=== PATIENT | male | born 1940 | race Caucasian/White ===

== ENCOUNTER 2018-06-01 19:40 | Observation (INO) | payer MEDICARE ==
[2018-06-01] MEDS ORDERED: Sodium Chloride 0.9% 1000 ML 1,000 ML ONE (20:14)
[2018-06-01] MEDS ORDERED: Sodium Chloride 0.9% 1000 ML 1,000 ML IV SCH (20:15)
[2018-06-01 20:27] LABS: BASOPHIL % 0.2 % (0.0-0.4); Basophil (Absolute #) 0.02 (0-0.4); Eosinophil % 1.7 % (0.00-5.0); Eosinophil (Absolute #) 0.18 (0-0.5); Granulocytes % 79.6 % (36.0-66.0); Hemoglobin 14.2 gm/dl (12.5-18.0); Lymphocyte (Absolute #) 1.17 (1.0-4.6); Mean Corpuscular Hemoglobin 30.3 pg (26-32); Mean Corpuscular Hgb Concent. 32.3 g/dl (32-36); Mean Platelet Volume 11.3 fl (6-9.5); Monocytes % 7.5 % (0.0-12.0); Platelet Count 148 K/mm3 (150-450); Red Blood Count 4.68 M/mm3 (4.1-5.6); Red Cell Distribution Width 13.9 % (11.5-14.0); White Blood Count 10.7 K/mm3 (4.0-10.5)
--- NOTE | 2018-06-01 20:35 | ERPHSYRPT ---
- History of Present Illness Time Seen by Provider: 06/01/18 20:26 Source: patient Exam Limitations: no limitations Patient Subjective Stated Complaint: reports that pt left home around 184 this evening to attend a meeting she states around 192 she noted their dog was barking and looked out into the driveway to find the pt sitting out in their car. reports that pt was "talking out of his head" pt reports he has no recollection of driving home or attendting the meeting. pt reports no pain. reports pt has complained of fatigue for the last couple weeks. Triage Nursing Assessment: pt is aox3, pt is able to answer questions, pupils perrl, afebrile, pt skin is cool and clammy, pt t-shirt is saturated upon arrival, pt radial pulses strong and equal, cap refill < 3 seconds, pacemaker/ defib noted to the left chest. Physician History: 78-year-old white male brought by the medics with complaint of decreased level of consciousness this afternoon patient apparently went to a meeting at 184 later on the patient was noted to be sitting out in the car talking confused he cannot remember going to the meeting. He arrives he is alert oriented 3 answering questions he was noted have a blood sugar of 36 and given glucose by the medics he denies any chest pain shortness of breath. The patient's states the patient has been weak for the past 2-3 weeks. Past medical history includes bariatric surgery, arrhythmia, bilateral total hip arthroplasty., Also osteoarthritis and depression Past surgical history includes cardiac catheter, pacer, bilateral total hip replacement Timing/Duration: today Severity: moderate Modifying Factors: Improves With: other (patient improved after receieving gluciose from medics.) Allergies/Adverse Reactions: fluoxetine HCl [From [employer]] Allergy (Verified 06/01/18 20:02) Home Medications: Venlafaxine HCl ER 75 mg [Effexor XR 75 MG] 75 mg PO DAILY 05/25/13 [ History] Apixaban [Eliquis] 5 mg PO BID 06/01/18 [History] Carvedilol 3.125 mg [Coreg 3.125 MG] 3.125 mg PO DAILY 06/01/18 [History] Cyanocobalamin 500 Mcg [Vitamin B-12 500 MCG] 500 mcg PO DAILY 06/01/18 [ History] Ferrous Sulfate [Iron] 325 mg PO DAILY 06/01/18 [History] Sacubitril/Valsartan [Entresto 49 mg-51 mg Tablet] 1 tablet PO BID 06/01/18 [ History] Hx Tetanus, Diphtheria Vaccination/Date Given: No Hx Influenza Vaccination/Date Given: Yes Hx Pneumococcal Vaccination/Date Given: No Immunizations Up to Date: Yes - Review of Systems Constitutional: Weakness, No Fever, No Chills Eyes: No Symptoms Ears, Nose, & Throat: No Symptoms Respiratory: No Cough, No Dyspnea Cardiac: No Chest Pain, No Edema, No Syncope Abdominal/Gastrointestinal: No Abdominal Pain, No Nausea, No Vomiting, No Diarrhea Genitourinary Symptoms: No Dysuria Musculoskeletal: No Back Pain, No Neck Pain Skin: No Rash Neurological: Other (Patient noted to be confused while sitting in his car this evening noted to have low blood sugar. Incomplete improved after iv glucose.), No Dizziness, No Focal Weakness, No Sensory Changes Psychological: No Symptoms Endocrine: No Symptoms All Other Systems: Reviewed and Negative - Past Medical History Pertinent Past Medical History: Yes Neurological History: No Pertinent History ENT History: No Pertinent History Cardiac History: Arrhythmia Respiratory History: No Pertinent History Endocrine Medical History: No Pertinent History Musculoskeletal History: Osteoarthritis GI Medical History: No Pertinent History History: No Pertinent History Psycho-Social History: Depression Male Reproductive Disorders: No Pertinent History Other Medical History: Bariatric surgery, B ROSALIE (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) - Past Surgical History Past Surgical History: Yes Neuro Surgical History: No Pertinent History Cardiac: Cardiac Catheterization, Pacemaker Respiratory: No Pertinent History Gastrointestinal: Other Genitourinary: No Pertinent History Musculoskeletal: Orthopedic Surgery Male Surgical History: No Pertinent History Other Surgical History: kelly hip replacement, bariatic surgery - Social History Smoking Status: Never smoker Exposure to second hand smoke: No Drug Use: none Patient Lives Alone: No - Nursing Vital Signs Nursing Vital Signs: Initial Vital Signs Temperature 95.9 F 06/01/18 19:43 Pulse Rate 85 06/01/18 19:43 Respiratory Rate 20 06/01/18 19:43 Blood Pressure 111/69 06/01/18 19:43 O2 Sat by Pulse Oximetry 96 06/01/18 19:43 Pain Scale Pain Intensity 0 - Physical Exam General Appearance: no apparent distress, alert Eye Exam: PERRL/EOMI, eyes nml inspection Ears, Nose, Throat Exam: normal ENT inspection, TMs normal, pharynx normal, moist mucous membranes Neck Exam: normal inspection, non-tender, supple, full range of motion Respiratory Exam: normal breath sounds, lungs clear, No respiratory distress Cardiovascular Exam: regular rate/rhythm, normal heart sounds, normal peripheral pulses, capillary refill <2 sec Gastrointestinal/Abdomen Exam: soft, normal bowel sounds, No tenderness, No mass Back Exam: normal inspection, normal range of motion, No CVA tenderness, No vertebral tenderness Extremity Exam: normal inspection, normal range of motion, pelvis stable Neurologic Exam: alert, oriented x 3, cooperative, 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, normal mood/affect, nml cerebellar function, nml station & gait, sensation nml, No motor deficits Skin Exam: normal color, warm, dry, No rash Lymphatic Exam: No adenopathy SpO2 Interpretation: normal (96%) SpO2: 96 - Course Nursing assessment & vital signs reviewed: Yes - CT Exams Head CT Interpretation: Discussed w/radiologist (head CT: Nonacute senile brain compared to November 16, remote-appearing right external capsule lacunar infarct) Ordered Tests: Active Orders 24 hr Category Date Time Status Accucheck STAT Care 06/01/18 22:56 Active Rosalee Harris DAILY Care 06/01/18 22:14 Active EKG-ER Only STAT Care 06/01/18 20:13 Active CHEST 1 VIEW (PORTABLE) Stat Exams 06/01/18 20:30 Taken HEAD WITHOUT CONTRAST [CT] Stat Exams 06/01/18 20:30 Taken BLOOD CULTURE Stat Lab 06/01/18 22:08 Ordered CBC W DIFF Stat Lab 06/01/18 20:24 Completed CMP Stat Lab 06/01/18 20:24 Completed ETHYL ALCOHOL Stat Lab 06/01/18 20:37 Completed Glucose Stat Lab 06/01/18 23:20 Completed Glucose,Critical Care Urgent Lab 06/01/18 21:23 Completed Lactic Acid Stat Lab 06/01/18 22:22 Completed TROPONIN Q3H Lab 06/01/18 20:25 Completed TROPONIN Q3H Lab 06/01/18 23:30 Ordered TROPONIN Q3H Lab 06/02/18 02:30 Ordered TROPONIN Q3H Lab 06/02/18 05:30 Ordered TROPONIN Q3H Lab 06/02/18 08:30 Ordered TSH [TSH, 3RD Generation] Stat Lab 06/01/18 23:50 Ordered UA W/RFX UR CULTURE Stat Lab 06/01/18 20:43 Completed Medication Summary Generic Name Dose Route Start Last Admin Trade Name Pasquale PRN Reason Stop Dose Admin Sodium Chloride 1,000 mls @ 100 mls/hr 06/01/18 20:15 06/01/18 20:16 Sodium Chloride 0.9% 1000 Ml IV 07/01/18 20:14 100 mls/hr .Q10H AKHIL Administration Lab/Rad Data: Laboratory Result Diagrams 06/01/18 20:24 06/01/18 20:24 Laboratory Results 06/01/18 06/01/18 06/01/18 Range/Units 23:20 22:22 21:23 WBC (4.0-10.5) K/mm3 RBC (4.1-5.6) M/mm3 Hgb (12.5-18.0) gm/dl Hct (42-50) % MCV (78-100) fl MCH (26-32) pg MCHC (32-36) g/dl RDW (11.5-14.0) % Plt Count (150-450) K/mm3 MPV (6-9.5) fl Gran % (36.0-66.0) % Eos # (Auto) (0-0.5) Absolute Lymphs (auto) (1.0-4.6) Absolute Monos (auto) (0.0-1.3) Lymphocytes % (24.0-44.0) % Monocytes % (0.0-12.0) % Eosinophils % (0.00-5.0) % Basophils % (0.0-0.4) % Absolute Granulocytes (1.4-6.9) Basophils # (0-0.4) Sodium (137-145) mmol/L Potassium (3.5-5.1) mmol/L Chloride (98-107) mmol/L Carbon Dioxide (22-30) mmol/L Anion Gap (5-15) MEQ/L BUN (9-20) mg/dL Creatinine (0.66-1.25) mg/dL Estimated GFR ML/MIN Glucose 109 H 97 (74-106) mg/dL Lactic Acid 1.6 (0.4-2.0) Calcium (8.4-10.2) mg/dL Total Bilirubin (0.2-1.3) mg/dL AST (17-59) U/L ALT (0-50) U/L Alkaline Phosphatase (38-126) U/L Troponin I (0.000-0.034) ng/mL Serum Total Protein (6.3-8.2) g/dL Albumin (3.5-5.0) g/dL Urine Color (YELLOW) Urine Appearance (CLEAR) Urine pH (5-6) Ur Specific [place] (1.005-1.025) Urine Protein (Negative) Urine Ketones (NEGATIVE) Urine Blood (0-5) Gilberto/ul Urine Nitrite (NEGATIVE) Urine Bilirubin (NEGATIVE) Urine Urobilinogen (0-1) mg/dL Ur Leukocyte Esterase (NEGATIVE) Urine WBC (Auto) (0-5) /HPF Urine RBC (Auto) (0-2) /HPF U Epithel Cells (Auto) (FEW) /HPF Urine Bacteria (Auto) (NEGATIVE) /HPF Urine Mucus (Auto) (NEGATIVE) /HPF Urine Culture Reflexed (NO) Urine Glucose (NEGATIVE) mg/dL Ethyl Alcohol (0-10) mg/dL 06/01/18 06/01/18 06/01/18 Range/Units 20:43 20:37 20:25 WBC (4.0-10.5) K/mm3 RBC (4.1-5.6) M/mm3 Hgb (12.5-18.0) gm/dl Hct (42-50) % MCV (78-100) fl MCH (26-32) pg MCHC (32-36) g/dl RDW (11.5-14.0) % Plt Count (150-450) K/mm3 MPV (6-9.5) fl Gran % (36.0-66.0) % Eos # (Auto) (0-0.5) Absolute Lymphs (auto) (1.0-4.6) Absolute Monos (auto) (0.0-1.3) Lymphocytes % (24.0-44.0) % Monocytes % (0.0-12.0) % Eosinophils % (0.00-5.0) % Basophils % (0.0-0.4) % Absolute Granulocytes (1.4-6.9) Basophils # (0-0.4) Sodium (137-145) mmol/L Potassium (3.5-5.1) mmol/L Chloride (98-107) mmol/L Carbon Dioxide (22-30) mmol/L Anion Gap (5-15) MEQ/L BUN (9-20) mg/dL Creatinine (0.66-1.25) mg/dL Estimated GFR ML/MIN Glucose (74-106) mg/dL Lactic Acid (0.4-2.0) Calcium (8.4-10.2) mg/dL Total Bilirubin (0.2-1.3) mg/dL AST (17-59) U/L ALT (0-50) U/L Alkaline Phosphatase (38-126) U/L Troponin I < 0.012 (0.000-0.034) ng/mL Serum Total Protein (6.3-8.2) g/dL Albumin (3.5-5.0) g/dL Urine Color YELLOW (YELLOW) Urine Appearance CLEAR (CLEAR) Urine pH 5.0 (5-6) Ur Specific [place] 1.012 (1.005-1.025) Urine Protein NEGATIVE (Negative) Urine Ketones NEGATIVE (NEGATIVE) Urine Blood NEGATIVE (0-5) Gilberto/ul Urine Nitrite NEGATIVE (NEGATIVE) Urine Bilirubin NEGATIVE (NEGATIVE) Urine Urobilinogen NEGATIVE (0-1) mg/dL Ur Leukocyte Esterase NEGATIVE (NEGATIVE) Urine WBC (Auto) NONE (0-5) /HPF Urine RBC (Auto) 0-2 (0-2) /HPF U Epithel Cells (Auto) NONE (FEW) /HPF Urine Bacteria (Auto) NONE SEEN (NEGATIVE) /HPF Urine Mucus (Auto) SLIGHT (NEGATIVE) /HPF Urine Culture Reflexed NO (NO) Urine Glucose NEGATIVE (NEGATIVE) mg/dL Ethyl Alcohol < 10 (0-10) mg/dL 06/01/18 06/01/18 Range/Units 20:24 20:24 WBC 10.7 H (4.0-10.5) K/mm3 RBC 4.68 (4.1-5.6) M/mm3 Hgb 14.2 (12.5-18.0) gm/dl Hct 44.0 (42-50) % MCV 94.0 (78-100) fl MCH 30.3 (26-32) pg MCHC 32.3 (32-36) g/dl RDW 13.9 (11.5-14.0) % Plt Count 148 L (150-450) K/mm3 MPV 11.3 H (6-9.5) fl Gran % 79.6 H (36.0-66.0) % Eos # (Auto) 0.18 (0-0.5) Absolute Lymphs (auto) 1.17 (1.0-4.6) Absolute Monos (auto) 0.80 (0.0-1.3) Lymphocytes % 11.0 L (24.0-44.0) % Monocytes % 7.5 (0.0-12.0) % Eosinophils % 1.7 (0.00-5.0) % Basophils % 0.2 (0.0-0.4) % Absolute Granulocytes 8.50 H (1.4-6.9) Basophils # 0.02 (0-0.4) Sodium 140 (137-145) mmol/L Potassium 3.9 (3.5-5.1) mmol/L Chloride 105 (98-107) mmol/L Carbon Dioxide 26 (22-30) mmol/L Anion Gap 13.0 (5-15) MEQ/L BUN 20 (9-20) mg/dL Creatinine 0.98 (0.66-1.25) mg/dL Estimated GFR > 60.0 ML/MIN Glucose 51 L (74-106) mg/dL Lactic Acid (0.4-2.0) Calcium 8.9 (8.4-10.2) mg/dL Total Bilirubin 0.30 (0.2-1.3) mg/dL AST 19 (17-59) U/L ALT 13 (0-50) U/L Alkaline Phosphatase 114 (38-126) U/L Troponin I (0.000-0.034) ng/mL Serum Total Protein 7.3 (6.3-8.2) g/dL Albumin 4.3 (3.5-5.0) g/dL Urine Color (YELLOW) Urine Appearance (CLEAR) Urine pH (5-6) Ur Specific [place] (1.005-1.025) Urine Protein (Negative) Urine Ketones (NEGATIVE) Urine Blood (0-5) Gilberto/ul Urine Nitrite (NEGATIVE) Urine Bilirubin (NEGATIVE) Urine Urobilinogen (0-1) mg/dL Ur Leukocyte Esterase (NEGATIVE) Urine WBC (Auto) (0-5) /HPF Urine RBC (Auto) (0-2) /HPF U Epithel Cells (Auto) (FEW) /HPF Urine Bacteria (Auto) (NEGATIVE) /HPF Urine Mucus (Auto) (NEGATIVE) /HPF Urine Culture Reflexed (NO) Urine Glucose (NEGATIVE) mg/dL Ethyl Alcohol (0-10) mg/dL - Progress Progress: improved Progress Note: 06/01/18 21:32 78-year-old white male arrives with complaint of confusion apparently went to a meeting could not remember going there found sitting outside in his car. Patient given glucose after medics noted to have an Accu-Chek of 36. Patient now with a glucose of around 50 on his chemistry repeat stat glucose was ordered on this patient. Patient with head CT with nonacute senile brain compared to November 16, 2010 with new remote-appearing right external capsule lacunar infarct. 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 Patient does have a paced rhythm on his EKG [address] or T wave changes blood alcohol level is less than 10 chemistry essentially normal with the exception of a glucose of 51 troponin is normal Will repeat stat glucose provide glucose if necessary. Patient has not provided a urine. Anticipate placement patient on telemetry with neuro checks and monitoring sugars carefully. 06/01/18 23:09 Patient appears to be stable. Chest x-ray some atelectasis in the left lung base EKG remarkable for a paced rhythm lactate 1.6 urinalysis essentially normal CBC white blood cell 10.7 hemoglobin 14.2 hematocrit 44.0 patient's troponin less than 0.012 Chemistry glucose 51 this was repeated with a stat glucose and found to be 98 sodium 140 potassium 3.9 chloride 105 bicarbonate 26 BUN 20 creatinine 0.98 anion gap is [address] nonacute senile brain compared to November 16, 2010 with new remote- appearing right external capsule lacunar infarct. Urinalysis is normal Patient was given a bear hugger to increase his temperature. I have discussed the patient's case with Dr. Yun will go ahead and order a TSH free T4. Will plan on placing the patient on ICU with every 4 hours neuro checks will have every 2 hour IV glucose. Will continue telemetry and troponins. We'll consider D5 half normal saline to run at 60 mL per hour. - Departure Time of Disposition: 23:51 Departure Disposition: Observation Clinical Impression: Mental status change resolved, Hypoglycemia Hypothermia Qualifiers: Encounter type: initial encounter Qualified Code(s): T68.XXXA - Hypothermia, initial encounter Condition: Fair Critical Care Time: No Referrals: MOUNA YUN [Primary Care Provider] -
[2018-06-01 20:41] LABS: ALBUMIN 4.3 g/dL (3.5-5.0); ALKALINE PHOSPHATASE 114 U/L (38-126); BLOOD UREA NITROGEN 20 mg/dL (9-20); CHLORIDE 105 mmol/L (98-107); Calcium 8.9 mg/dL (8.4-10.2); Carbon Dioxide 26 mmol/L (22-30); Creatinine 1 0.98 mg/dL (0.66-1.25); Glucose 51 mg/dL (74-106); Potassium 3.9 mmol/L (3.5-5.1); SGOT/AST 19 U/L (17-59); SGPT/ALT 13 U/L (0-50); SODIUM 140 mmol/L (137-145); Total Protein 7.3 g/dL (6.3-8.2)
[2018-06-01 22:08] LABS: Appearance CLEAR (CLEAR); Bilirubin NEGATIVE (NEGATIVE); Blood NEGATIVE Ery/ul (0-5); Glucose NEGATIVE (NEGATIVE); Ketones NEGATIVE (NEGATIVE); Leukocyte Esterase NEGATIVE (NEGATIVE); Mucus SLIGHT /HPF (NEGATIVE); Nitrite NEGATIVE (NEGATIVE); Protein,Urine Dip NEGATIVE (Negative); RBC 0-2 /HPF (0-2); Specific Gravity 1.012 (1.005-1.025); Urobilinogen NEGATIVE mg/dL (0-1)
[2018-06-01 22:09] LABS: Bacteria NONE SEEN /HPF (NEGATIVE)
[2018-06-02] MEDS: Dextrose 5% -0.45 NaCl 1000 ML 1,000 ML IV SCH ×2 (01:04→17:42)
[2018-06-02 05:32] LABS: BASOPHIL % 0.3 % (0.0-0.4); Basophil (Absolute #) 0.02 (0-0.4); Eosinophil % 1.6 % (0.00-5.0); Granulocyte Absolute (ANC) 4.31 (1.4-6.9); Granulocytes % 68.1 % (36.0-66.0); Hemoglobin 13.1 gm/dl (12.5-18.0); Lymphocyte (Absolute #) 1.35 (1.0-4.6); Lymphocytes % 21.3 % (24.0-44.0); Mean Cell Volume 93.8 fl (78-100); Mean Platelet Volume 11.1 fl (6-9.5); Monocyte (Absolute #) 0.55 (0.0-1.3); Monocytes % 8.7 % (0.0-12.0); Platelet Count 136 K/mm3 (150-450); Red Blood Count 4.37 M/mm3 (4.1-5.6); Red Cell Distribution Width 13.9 % (11.5-14.0); White Blood Count 6.3 K/mm3 (4.0-10.5)
[2018-06-02 05:51] LABS: ALBUMIN 3.5 g/dL (3.5-5.0); ALKALINE PHOSPHATASE 97 U/L (38-126); ANION GAP 11.2 MEQ/L (5-15); BLOOD UREA NITROGEN 18 mg/dL (9-20); CHLORIDE 104 mmol/L (98-107); Calcium 8.7 mg/dL (8.4-10.2); Carbon Dioxide 27 mmol/L (22-30); Creatinine 1 0.84 mg/dL (0.66-1.25); Glucose 115 mg/dL (74-106); Potassium 4.5 mmol/L (3.5-5.1); SGOT/AST 16 U/L (17-59); SGPT/ALT 11 U/L (0-50); SODIUM 137 mmol/L (137-145); Total Protein 5.9 g/dL (6.3-8.2)
--- NOTE | 2018-06-02 08:37 | XRAY ---
Indication: Weakness. Mental status change. Multiple contiguous axial images obtained through the head without contrast. Comparison: November 16, 2010. Again age-appropriate global atrophy and mild periventricular degenerative micro-ischemia bilaterally. New right external capsule remote-appearing lacunar infarct. No acute intracranial hemorrhage, abnormal extra-axial fluid collection, or mass effect. Fourth ventricle is midline without hydrocephalus. Bony calvarium intact. Visualized paranasal sinuses and mastoid air cells are clear. Impression: Nonacute senile brain with remote-appearing right external capsule lacunar infarct. CT DI 65.91
--- NOTE | 2018-06-02 08:39 | XRAY ---
Indication: Weakness. Mental status change. Comparison: November 16, 2010. Portable chest demonstrates new minimal bibasilar infiltrates versus atelectasis. Upper lungs clear. Heart is not enlarged with new left-sided AICD. Stable focal eventration of the right hemidiaphragm. Bony thorax intact again with mild osteopenia and degenerative changes. Impression: Bibasilar infiltrates/atelectasis. Correlate clinically.
--- NOTE | 2018-06-02 10:35 | XRAY ---
Indication: Hypoglycemia. Possible tumor secreting. Multiple contiguous axial images obtained through the abdomen and pelvis without contrast as ordered. Comparison: None Lung bases demonstrates mild bibasilar fibrosis/scarring. No infiltrate or effusion. Heart is not enlarged with cardiac pacer leads. Moderate-sized hiatal hernia with partial intrathoracic stomach. Bilateral hip arthroplasty with prostheses producing extensive beam artifact limiting these levels. There has been previous gastric bypass surgery. Noncontrasted stomach and bowel loops appear nonobstructed. Mild diffuse scattered colonic fecal debris greatest in the ascending and transverse colon. Scattered descending diverticulosis without diverticulitis. Urinary bladder is markedly distended either neurogenic bladder versus outlet obstruction. No free fluid/air. Remaining liver, gallbladder, pancreas, spleen, adrenal glands, kidneys, and ureters appear unremarkable for noncontrast exam. Minimal scattered aortoiliac calcifications without AAA. Osseous structures demonstrates osteopenia and mild/moderate degenerative changes throughout the spine. No ventral or inguinal hernias. Impression: 1. Images of the pelvis limited due to beam artifact from bilateral hip arthroplasty. 2. Markedly distended urinary bladder. Rule out neurogenic bladder versus outlet obstruction. 3. Mild fecal stasis and descending colonic diverticulosis. 4. Moderate sized hiatal hernia. CT DI 23.27
[2018-06-02] MEDS: Effexor XR 75 MG PO SCH (11:24)
[2018-06-02] MEDS: Coreg 3.125 MG PO SCH (11:26)
[2018-06-02] MEDS: FEOSOL 325 MG PO SCH (11:26)
[2018-06-02] MEDS: ENTRESTO 49 MG-51 MG TABLET PO SCH ×2 (11:26→21:17)
[2018-06-02] MEDS: Vitamin B-12 500 MCG PO SCH (11:26)
[2018-06-02] MEDS: ELIQUIS 2.5 MG TABLET PO SCH ×2 (11:28→21:16)
--- NOTE | 2018-06-02 13:45 | HP ---
HISTORY OF PRESENT ILLNESS: This is a 78 year-old patient of mine who presented to the emergency department by ambulance. He and his are in the room. He states he now does remember going to the meeting and passing papers out to people and then driving home but once he was in his driveway he does not seem to remember what happened. His had reported to the emergency room doctor that they only live a few blocks from where he was driving home from and she noticed the dog barking and that he was out in the driveway. She states she went out to him and he did not know who she was or where he was. The patient reports that he did not take his afternoon medications but was planning on taking them when he got home. No one at home has any diabetes medicine. He does not have any diabetes medicine. He has not noticed anything different about any pills in his bottles. He reports he usually snacks throughout the day and did eat breakfast and then had a snack at 1000 hours, a cheeseburger at 1300 hours and ate at the [facility] where he had two sides around 1600 hours. His meeting was around 1800 hours. They report from the past two to three weeks he has felt tired. He had been taking naps. He reports that he is working on two to three projects and feels like that is a lot for him right now. He has history of bariatric surgery and this is why he just kind of snacks during the day because he feels like he fills up quickly. The emergency room doctor's note said when EMS found him that his blood sugar was 36 and they gave him glucose. It was 51 when he arrived in the emergency room. REVIEW OF SYSTEMS: No fever. No cough. No rhinorrhea. He reports a little bit of diarrhea two nights ago when he ate some dairy and a little bit of abdominal pain right before the diarrhea but no abdominal pain now. He reports that same night he had some spitting up but does not vomit anymore after the gastric bypass surgery. No rashes. No headache. No dysuria. No weight loss. PAST MEDICAL HISTORY: Depression well controlled on his current medication. Congestive heart failure with history of ejection fraction of 28% on echo December 2015. Dilated cardiomyopathy. He has a pacemaker. History of atrial fibrillation. He sees both Dr. Manuel Hess and Dr. Lopez. History of back pain for which he sees Dr. Land for. PAST SURGICAL HISTORY: Left hip replaced 25 years ago. Right hip replaced three times. Pacemaker placement. Gastric bypass surgery. ALLERGIES: FLUOXETINE. SOCIAL HISTORY: He is and lives with his . He denies any tobacco or alcohol use. No illicit drugs. FAMILY HISTORY: His father from heart disease at age 68. His mother in her late 90's from old age. PHYSICAL EXAMINATION: VITAL SIGNS: Temperature current 97.8F, temperature max 97.8F. His lowest temperature was 95F rectally. Heart rate 81 to 84, respiratory rate 16 to 25, blood pressure 117/74, weight 79.2 kg. Oxygen saturation 94 to 97% on room air. GENERAL: The patient is lying in bed a pleasant talkative man in no acute distress. His is at the bedside. NEURO: He is alert, oriented x3. He knows who the President of [employer] is. Cranial nerves II-XII are intact. Strength 5/5 in all four extremities. Normal finger to nose and heel to zhou. HEART: His heart has a regular rate and rhythm. No murmurs, gallops or rubs are appreciated. CHEST: Clear to auscultation bilaterally. No crackles or wheezes. ABDOMEN: Soft, nontender, nondistended with normal bowel sounds. EXTREMITIES: No clubbing, cyanosis or edema. SKIN: Warm, dry and intact. LABORATORY DATA AND TESTS: White blood cell count 10.7 on admission, repeat 6.3. Hemoglobin normal at 13.1. PLT count 136,000. CMP this a.m. revealed a protein of 5.9, glucose 115. UA was negative. Ethanol alcohol level less than 10. His blood culture is in lab. His lactic acid was normal. Head CT revealed nonacute senile brain with remote appearing right external capsule lacunar infarct. Chest x-ray was read as bibasilar infiltrates/atelectasis. Please see the radiologist dictation for the full report. ASSESSMENT AND PLAN: 1) HYPOGLYCEMIA: The etiology of this is unclear at this time. I have ordered tests to look for insulin levels, C-peptide antibodies to insulin, proinsulin level as well as sulfonylurea screen. This may be related to his history of bariatric surgery. He also takes a beta nedra but had not taken it that afternoon before this episode. He reports his oral intake was not much different than it normally is. I have ordered a CT scan of his abdomen and pelvis to look for possible tumor that could be secreting insulin. His Accu-Chek's have been fine. Since he was admitted he was on D5 fluids at 60 ml/hour. He reports he did eat breakfast, will continue with close monitoring. I have decided to change his Accu-Chek's to before meals and q.h.s. 2) HYPOTHERMIA: He was outside but inside a car and it was not extremely cold last night. The etiology of this was also unclear. He responded well to a Yue Hugger. I ordered a cortisol level, will continue with close monitoring and try to wean him off the Yue Hugger. 3) HISTORY OF CARDIOMYOPATHY AND ATRIAL FIBRILLATION: Will continue him on his home medications. He is on a blood thinner. 4) HISTORY OF STROKE ON HEAD CT: Again, he is on blood thinner right now. At this time I will not add anything extra to that. 5) HISTORY OF GASTRIC BYPASS SURGERY: Will continue to encourage small frequent meals.
--- NOTE | 2018-06-03 09:27 | PCM.DCORD ---
- Discharge Discharge Date: 06/03/18 Disposition: Home, Self-Care Condition: Fair Prescriptions: Continue Venlafaxine HCl ER 75 mg [Effexor XR 75 MG] 75 mg PO DAILY Apixaban [Eliquis] 5 mg PO BID Sacubitril/Valsartan [Entresto 49 mg-51 mg Tablet] 1 tablet PO BID Carvedilol 3.125 mg [Coreg 3.125 MG] 3.125 mg PO DAILY Ferrous Sulfate [Iron] 325 mg PO DAILY Cyanocobalamin 500 Mcg [Vitamin B-12 500 MCG] 500 mcg PO DAILY Additional Instructions: Carry a role of glucose tablets with you and take 2 if you feel poorly; Continue to eat small frequent meals; Return to clinic or ER if any concerns. Follow up with: MOUNA YUN [Primary Care Provider] - 1 Week SHILPI BAUTISTA [CONSULTING PHYSICIAN] - 1 Week JORDEN VELASQUEZ [NON-STAFF PHY W/O PRIVILEGES] - 1 Week
[2018-06-03] MEDS: Effexor XR 75 MG PO SCH (09:44)
[2018-06-03] MEDS: Coreg 3.125 MG PO SCH (09:45)
[2018-06-03] MEDS: ENTRESTO 49 MG-51 MG TABLET PO SCH (09:45)
[2018-06-03] MEDS: Vitamin B-12 500 MCG PO SCH (09:45)
[2018-06-03] MEDS: ELIQUIS 2.5 MG TABLET PO SCH (09:45)
[2018-06-03] MEDS: FEOSOL 325 MG PO SCH (09:45)
--- NOTE | 2018-06-03 14:02 | DS ---
DISCHARGE DIAGNOSES: 1) HYPOGLYCEMIA. 2) HYPOTHERMIA. 3) HISTORY OF CARDIOMYOPATHY AND ATRIAL FIBRILLATION. 4) HISTORY OF STROKE. 5) HISTORY OF GASTRIC BYPASS SURGERY. 6) OBSTRUCTIVE SLEEP APNEA. DISCHARGE PHYSICAL EXAMINATION: VITALS: Temperature current 97.6F, temperature max 98.6F, heart rate 83 to 84, respiratory rate 17 to 20, blood pressure 98 to 117 over 54 to 77. Oxygen saturation 94 to 96% on room air to 2 liters nasal cannula. GENERAL: The patient is lying in bed a pleasant talkative man in no acute distress. His is at the bedside. CVS: His heart has a regular rate and rhythm. No murmurs, gallops or rubs are appreciated. CHEST: Clear to auscultation bilaterally. No crackles or wheezes. ABDOMEN: Soft, nontender, nondistended with normal bowel sounds. EXTREMITIES: No clubbing, cyanosis or edema. SKIN: Warm, dry and intact. HOSPITAL COURSE: 1) HYPOGLYCEMIA: This resolved when he was treated actually in the ambulance. In the emergency department he had no further episodes. I ordered CT scan of his abdomen and pelvis to look for possible tumor and one was not seen on that study. I also ordered total insulin C-peptide, insulin antibodies, proinsulin screen and these results are not back yet. Will plan to have the patient follow up with central service technician as an outpatient for further evaluation. I have asked him to carry a roll of glucose tablets with him and if he feels bad to take two of these. I asked him to have someone with him for the next couple of days. He and his are comfortable with going home at this point. 2) HYPOTHERMIA: Again the etiology is not clear. Cortisol level was ordered and not back yet. He has been doing fine here off of the [place] [employer] with no further episodes of hypothermia. Again his family is comfortable with going home with him. 3) HISTORY OF CARDIOMYOPATHY AND ATRIAL FIBRILLATION: He was continued on his home medications including his blood thinner. Will have him continue these as an outpatient. 4) HISTORY OF STROKE ON HEAD CT: He is currently on a blood thinner which we will continue with at this time. 5) HISTORY OF GASTRIC BYPASS SURGERY: He is encouraged to continue to eat small frequent meals and he reports he will work on making these more nutritious. 6) OBSTRUCTIVE SLEEP APNEA: He was found to have an oxygen saturation down to 70% overnight last night and then told the nurses that he is supposed to wear a CPAP but we did not have any record of this in his outpatient chart. He reports it was ordered in the remote past by Dr. Cristobal Maya. Dr. Maya's office was called and states the patient has not seen him for over three years. I will have the patient follow up with Dr. Maya. DISCHARGE MEDICATIONS: He is to resume all of his current medications. FOLLOW UP: He is to follow up with myself in a week, Dr. Maya and also Dr. Figueroa, Profiling Machine Setup Operator for further evaluation. DISPOSITION: The patient was discharged home in fair condition.
[2018-06-03 14:23] VITALS: BP 89/56; PULSE 80; O2SAT 94
== END 2018-06-03 15:25 | disposition home or self-care (01) ==
LOC: ED 19:40 → ICU 06-02 00:39
PROVIDERS: ADMIT Internal Medicine; ATTEND Internal Medicine
DX: E16.2 Hypoglycemia, unspecified (principal); T68.XXXA Hypothermia, initial encounter; G47.33 Obstructive sleep apnea (adult) (pediatric); Z86.73 Personal history of transient ischemic attack (TIA), and cerebral infarction without residual deficits; Z98.84 Bariatric surgery status; Z79.899 Other long term (current) drug therapy; Z79.01 Long term (current) use of anticoagulants; Z95.0 Presence of cardiac pacemaker
CPT/HCPCS: 36415; 70450; 71045; 74176; 80053; 81001; 82533; 82947; 82962; 83036; 83525; 83605; 84206; 84439; 84443; 84484; 84681; 85025; 86337; 87040; 93005; 99285; G0378; G0480; 80307; A9270-GY

== ENCOUNTER 2019-02-21 08:26 | Day surgery (SDC) | payer MEDICARE ==
--- NOTE | 2019-02-18 10:07 | HP ---
PROCEDURE DATE: 02/21/19 HISTORY OF PRESENT ILLNESS: The patient is a 79 y/o with last colonoscopy 5-10 years ago. No bloody stools. Has had some cramps and diarrhea in the past 6 months. No more recent changes. PAST MEDICAL HISTORY: Heart disease, arthritis, has had some anemia in the past. PAST SURGICAL HISTORY: Had gastric bypass. Had pacemaker/defibrillator in the past. Had colonoscopy in the past. CURRENT MEDICATIONS: Ferrous sulfate, carvedilol, venlafaxine ER, Entresto, Eliquis. ALLERGIES: NKDA. FAMILY HISTORY: Negative for colon cancer. Negative for inflammatory bowel disease. His father of a myocardial infarction. SOCIAL HISTORY: No smoking or alcohol abuse. REVIEW OF SYSTEMS: 14 systems reviewed. No chest pain or palpitations. Other systems negative or noncontributory other than above and per preadmission questionnaire. PHYSICAL EXAMINATION: GENERAL: No acute distress. HEENT: Sclerae nonicteric. NECK: No JVD. CHEST: Equal excursion. Nonlabored breathing. CVS: Regular rate and rhythm. ABDOMEN: Soft. No peritoneal signs. EXTREMITIES: No significant edema. NEURO: Alert and oriented, moving extremities grossly symmetrically. RECTAL: Deferred until time of endoscopy exam. IMPRESSION: 1. NEED FOR FOLLOW-UP SCREENING COLONOSCOPY HE HAS NOT HAD ONE IN YEARS. FEEL HE IS A CANDIDATE. Risks and benefits explained in detail. Shown the risk sheet. Explained the procedure in detail, but not limited to, bleeding; infection; risk of bowel injury or perforation possibly requiring open procedure; risk of missed or nondiagnosis or incomplete exam possibly requiring barium enema or other studies or procedures; general risk of anesthesia or sedation; risk of bowel prep. He understands and agrees to the planned procedure. Will proceed with outpatient follow-up screening colonoscopy.
[2019-02-21] MEDS ORDERED: Lactated Ringers 1,000 ML IV SCH (09:00)
[2019-02-21] MEDS ORDERED: DIPRIVAN 200 MG/20 ML IV ONE (10:41)
[2019-02-21 11:55] VITALS: O2SAT 98
[2019-02-21 12:00] VITALS: BP 108/73; PULSE 89
--- NOTE | 2019-02-21 14:34 | OP ---
SURGERY DATE/TIME: 02/21/2019 1047 PREOPERATIVE DIAGNOSIS: Need for screening colonoscopy. History of some variation in bowel pattern over the past six months to year. POSTOPERATIVE DIAGNOSES: 1) Adequate prep. 2) Diverticulosis. 3) Small internal and external hemorrhoids. PROCEDURES: Colonoscopy to cecum with cold biopsies random colon to evaluate for microscopic colitis. SURGEON: Dr. Sergio Perez. CUSHION INSTALLER: Og Hoffman, Medical Student III. ANESTHESIA: MAC. ESTIMATED BLOOD LOSS: Minimal. INDICATIONS: As noted above. Risks and benefits explained in detail but not limited to and consent obtained. DESCRIPTION OF PROCEDURE AND FINDINGS: The patient is taken to the operating room. MAC anesthesia introduced. After official time out and no disagreement with planned procedure, digital rectal exam revealed some small internal and external hemorrhoids. There were no digitally palpable rectal mass. Video colonoscope inserted and passed up the tortuous sigmoid, descending, transverse and ascending colon around to the cecum. Appendiceal orifice and valve well visualized. The very tip of the terminal ileum was grossly unremarkable. The scope is slowly and carefully withdrawn over the next 9 minutes. Prep was only adequate just lightly limiting exam. He had some thick semisolid stool that was difficult to suction through the scope. However slow careful withdrawal of the scope over 9 minutes there were no signs of any large polyps, masses or obstructing lesions. He did have diverticulosis. He did had small internal hemorrhoids. Again, given the quality of the prep although I do not feel there is any large polyps, masses or obstructing lesions. It was felt if the path is benign likely would benefit from considering follow up colonoscopy in five years. If the patient is not agreeable would consider barium enema. No immediate complications. Findings discussed with the family out in the waiting area.
== END 2019-02-21 12:10 | disposition home or self-care (01) ==
LOC: SDC 08:26
PROVIDERS: ATTEND Surgery
DX: Z12.11 Encounter for screening for malignant neoplasm of colon (principal); K57.30 Diverticulosis of large intestine without perforation or abscess without bleeding; K64.4 Residual hemorrhoidal skin tags; K64.8 Other hemorrhoids
CPT/HCPCS: 88305; 99100; J2704

== ENCOUNTER 2019-05-30 13:13 | Emergency (ER) | payer MEDICARE ==
[2019-05-30] MEDS ORDERED: Sodium Chloride 0.9% 1000 ML 1,000 ML IV SCH (14:15)
[2019-05-30 14:31] LABS: BASOPHIL % 0.3 % (0.0-0.4); Basophil (Absolute #) 0.02 (0-0.4); Eosinophil % 2.2 % (0.00-5.0); Eosinophil (Absolute #) 0.16 (0-0.5); Hematocrit 41.6 % (42-50); Hemoglobin 13.5 gm/dl (12.5-18.0); Lymphocytes % 12.3 % (24.0-44.0); Mean Cell Volume 94.1 fl (78-100); Mean Corpuscular Hemoglobin 30.5 pg (26-32); Mean Corpuscular Hgb Concent. 32.5 g/dl (32-36); Mean Platelet Volume 10.9 fl (7.5-11.0); Monocyte (Absolute #) 0.73 (0.0-1.3); Neutrophil % 75.2 % (36.0-66.0); Platelet Count 146 K/mm3 (150-450); Red Blood Count 4.42 M/mm3 (4.1-5.6); Red Cell Distribution Width 13.6 % (11.5-14.0); White Blood Count 7.3 K/mm3 (4.0-10.5)
[2019-05-30 14:36] LABS: INR 1.31 (0.8-3.0); PROTIME 14.9 SECONDS (8.83-12.87)
[2019-05-30 14:38] LABS: PTT 33.4 SECONDS (24.1-36.1)
[2019-05-30 14:40] LABS: ALBUMIN 3.9 g/dL (3.5-5.0); ALKALINE PHOSPHATASE 100 U/L (38-126); ANION GAP 10.2 MEQ/L (5-15); BLOOD UREA NITROGEN 13 mg/dL (9-20); CHLORIDE 103 mmol/L (98-107); Calcium 8.9 mg/dL (8.4-10.2); Carbon Dioxide 29 mmol/L (22-30); Creatinine 1 0.68 mg/dL (0.66-1.25); Glucose 96 mg/dL (74-106); Potassium 4.3 mmol/L (3.5-5.1); SGOT/AST 24 U/L (17-59); SGPT/ALT 13 U/L (0-50); SODIUM 138 mmol/L (137-145); Total Protein 6.9 g/dL (6.3-8.2)
[2019-05-30] MEDS ORDERED: Sodium Chloride 0.9% 1000 ML 1,000 ML ONE (14:46)
[2019-05-30 14:55] LABS: Appearance CLOUDY (CLEAR); Bacteria MODERATE /HPF (NEGATIVE); Bilirubin NEGATIVE (NEGATIVE); Blood MODERATE Ery/ul (0-5); Epithelial Cells RARE /HPF (FEW); Glucose 50 mg/dL (NEGATIVE); Ketones TRACE (NEGATIVE); Leukocyte Esterase MODERATE (NEGATIVE); Nitrite NEGATIVE (NEGATIVE); Protein,Urine Dip 100 (Negative); Specific Gravity 1.009 (1.005-1.025); Urobilinogen NEGATIVE mg/dL (0-1); WBC >100 /HPF (0-5)
[2019-05-30 14:56] LABS: RBC >101 /HPF (0-2)
[2019-05-30 15:02] LABS: ABO TYPING A; Antibody Screen NEGATIVE (NEGATIVE); RH TYPING POSITIVE
[2019-05-30] MEDS ORDERED: ROCEPHIN 1 Gm-D5w 50 ml Bag** 1 G/50 ML IVPB IV STA (15:54)
--- NOTE | 2019-05-30 16:01 | ERPHSYRPT ---
- History of Present Illness Time Seen by Provider: 05/30/19 13:35 Source: patient Exam Limitations: no limitations Patient Subjective Stated Complaint: pt reports upon waking he noticed blood in his urine. pt is being treated for a neurogenic bladder by Marika Newton NP with [facility]. pt had catheter placed with leg bag in urologist office . pt denies pain at this time, pt reports bladder is draining, he emptied 1300 mL GRADER MARKER. pt states he has anemia and has noted increased weakness as well. Triage Nursing Assessment: pt is aox3, ambulated to [facility] area with slow, steady gait, pt appears pale, pupils perrl, afebrile, resps easy and non labored, radial pulses strong and equal, abd soft non tender, kerr cath in place attached to leg bag, garrison red urine noted in drainage bag. no clots noted at this time, urine appears clear. Physician History: Patient is a 79-year-old male who has a neurogenic bladder and indwelling catheter who has noticed blood in his urine. This is been going on for approximately 24 hours he also is on Eliquis for atrial fib from Dr. Lopez. Timing/Duration: day(s) (2) Activites at Onset: none Quality: fullness Onset Location: suprapubic Pain Radiation: none Severity of Pain-Max: mild Severity of Pain-Current: mild Modifying Factors: Improves With: nothing Associated Symptoms: denies symptoms Sexual intercourse history: non-contributory Allergies/Adverse Reactions: fluoxetine HCl [From [employer]] Allergy (Verified 05/30/19 13:39) Home Medications: Venlafaxine HCl ER 75 mg [Effexor XR 75 MG] 75 mg PO DAILY 05/25/13 [ History] Carvedilol 3.125 mg [Coreg 3.125 MG] 3.125 mg PO DAILY 06/01/18 [History] Ferrous Sulfate [Iron] 325 mg PO DAILY 06/01/18 [History] Sacubitril/Valsartan [Entresto 49 mg-51 mg Tablet] 1 tablet PO BID 06/01/18 [ History] Hx Tetanus, Diphtheria Vaccination/Date Given: Yes Hx Influenza Vaccination/Date Given: Yes Hx Pneumococcal Vaccination/Date Given: Yes Immunizations Up to Date: Yes - Past Medical History Pertinent Past Medical History: Yes Neurological History: No Pertinent History ENT History: No Pertinent History Cardiac History: Arrhythmia, Congestive Heart Failure, High Cholesterol, Hypertension Respiratory History: No Pertinent History Endocrine Medical History: No Pertinent History Musculoskeletal History: Osteoarthritis GI Medical History: No Pertinent History History: No Pertinent History Psycho-Social History: Depression Male Reproductive Disorders: No Pertinent History Other Medical History: Bariatric surgery, B ROSALIE (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) - Past Surgical History Past Surgical History: Yes Neuro Surgical History: No Pertinent History Cardiac: Cardiac Catheterization, Internal Defibrillator, Pacemaker Respiratory: No Pertinent History Gastrointestinal: Other Genitourinary: No Pertinent History Musculoskeletal: Orthopedic Surgery Male Surgical History: No Pertinent History Other Surgical History: kelly hip replacement, bariatic surgery - Social History Smoking Status: Never smoker Exposure to second hand smoke: No Drug Use: none Patient Lives Alone: No - Review of Systems Constitutional: No Fever, No Chills Eyes: No Symptoms Ears, Nose, & Throat: No Symptoms Respiratory: No Cough, No Dyspnea Cardiac: No Chest Pain, No Edema, No Syncope Abdominal/Gastrointestinal: No Abdominal Pain, No Nausea, No Vomiting, No Diarrhea Genitourinary Symptoms: Hematuria (Indwelling catheter for neurogenic bladder), No Dysuria Musculoskeletal: No Back Pain, No Neck Pain Skin: No Rash Neurological: No Dizziness, No Focal Weakness, No Sensory Changes Psychological: No Symptoms Endocrine: No Symptoms All Other Systems: Reviewed and Negative - Nursing Vital Signs Nursing Vital Signs: Initial Vital Signs Temperature 97.9 F 05/30/19 13:20 Pulse Rate 87 05/30/19 13:20 Respiratory Rate 20 05/30/19 13:20 Blood Pressure 125/83 05/30/19 13:20 O2 Sat by Pulse Oximetry 98 05/30/19 13:20 Pain Scale Pain Intensity 0 - Physical Exam General Appearance: no apparent distress, alert Eye Exam: PERRL/EOMI Ears, Nose, Throat Exam: pharynx normal, moist mucous membranes Neck Exam: normal inspection, supple Respiratory Exam: normal breath sounds, lungs clear Cardiovascular Exam: regular rate/rhythm, No edema Gastrointestinal/Abdomen Exam: soft, No tenderness Male Genital Exam: normal genitalia (She does have an indwelling catheter which is draining fairly bloody urine.) Back Exam: normal inspection, No CVA tenderness Extremity Exam: normal inspection, normal range of motion, No pedal edema Neurologic Exam: alert, oriented x 3, cooperative, sensation nml, No motor deficits Skin Exam: normal color, warm, dry, No rash Lymphatic Exam: adenopathy SpO2 Interpretation: normal SpO2: 98 O2 Delivery: Room Air - Course Nursing assessment & vital signs reviewed: Yes EKG Interpreted by Me: RATE (80), Other (Paced rhythm) Ordered Tests: Active Orders 24 hr Category Date Time Status EKG-ER Only STAT Care 05/30/19 14:01 Active IV Insertion STAT Care 05/30/19 14:01 Active CBC W DIFF Stat Lab 05/30/19 14:20 Completed CMP Stat Lab 05/30/19 14:20 Completed CULTURE,URINE Stat Lab 05/30/19 14:47 Received Lactic Acid Stat Lab 05/30/19 14:01 Completed PROTIME WITH INR Stat Lab 05/30/19 14:20 Completed PTT Stat Lab 05/30/19 14:20 Completed TROPONIN Q3H Lab 05/30/19 14:20 Completed TROPONIN Q3H Lab 05/30/19 17:15 Ordered TROPONIN Q3H Lab 05/30/19 20:15 Ordered TROPONIN Q3H Lab 05/30/19 23:15 Ordered TROPONIN Q3H Lab 05/31/19 02:15 Ordered UA W/RFX UR CULTURE Stat Lab 05/30/19 14:47 Completed Medication Summary Generic Name Dose Route Start Last Admin Trade Name Tomq PRN Reason Stop Dose Admin Sodium Chloride 1,000 mls @ 100 mls/hr 05/30/19 14:15 05/30/19 14:46 Sodium Chloride 0.9% 1000 Ml IV 06/29/19 14:14 100 mls/hr .Q10H AKHIL Administration Ceftriaxone Sodium/Dextrose 1 g in 50 mls @ 100 mls/hr 05/30/19 15:54 Rocephin 1 Gm-D5w 50 Ml Bag IV 05/30/19 16:23 STAT STA Lab/Rad Data: Laboratory Result Diagrams 05/30/19 14:20 05/30/19 14:20 Laboratory Results 05/30/19 05/30/19 05/30/19 Range/Units 14:47 14:20 14:20 WBC (4.0-10.5) K/mm3 RBC (4.1-5.6) M/mm3 Hgb (12.5-18.0) gm/dl Hct (42-50) % MCV (78-100) fl MCH (26-32) pg MCHC (32-36) g/dl RDW (11.5-14.0) % Plt Count (150-450) K/mm3 MPV (7.5-11.0) fl Gran % (36.0-66.0) % Eos # (Auto) (0-0.5) Absolute Lymphs (auto) (1.0-4.6) Absolute Monos (auto) (0.0-1.3) Lymphocytes % (24.0-44.0) % Monocytes % (0.0-12.0) % Eosinophils % (0.00-5.0) % Basophils % (0.0-0.4) % Absolute Granulocytes (1.4-6.9) Basophils # (0-0.4) PT 14.9 H (8.83-12.87) SECONDS INR 1.31 (0.8-3.0) APTT 33.4 (24.1-36.1) SECONDS Sodium (137-145) mmol/L Potassium (3.5-5.1) mmol/L Chloride (98-107) mmol/L Carbon Dioxide (22-30) mmol/L Anion Gap (5-15) MEQ/L BUN (9-20) mg/dL Creatinine (0.66-1.25) mg/dL Estimated GFR ML/MIN Glucose (74-106) mg/dL Lactic Acid (0.4-2.0) Calcium (8.4-10.2) mg/dL Total Bilirubin (0.2-1.3) mg/dL AST (17-59) U/L ALT (0-50) U/L Alkaline Phosphatase (38-126) U/L Troponin I (0.000-0.034) ng/mL Serum Total Protein (6.3-8.2) g/dL Albumin (3.5-5.0) g/dL Urine Color RED (YELLOW) Urine Appearance CLOUDY (CLEAR) Urine pH 6.0 (5-6) Ur Specific [place] 1.009 (1.005-1.025) Urine Protein 100 (Negative) Urine Ketones TRACE (NEGATIVE) Urine Blood MODERATE (0-5) Gilberto/ul Urine Nitrite NEGATIVE (NEGATIVE) Urine Bilirubin NEGATIVE (NEGATIVE) Urine Urobilinogen NEGATIVE (0-1) mg/dL Ur Leukocyte Esterase MODERATE (NEGATIVE) Urine WBC (Auto) >100 (0-5) /HPF Urine RBC (Auto) >101 (0-2) /HPF U Epithel Cells (Auto) RARE (FEW) /HPF Urine Bacteria (Auto) MODERATE (NEGATIVE) /HPF Urine Culture Reflexed ORDERED SEPARATELY (NO) Urine Glucose 50 (NEGATIVE) mg/dL ABO Group A Rh Factor POSITIVE Antibody Screen NEGATIVE (NEGATIVE) 05/30/19 05/30/19 05/30/19 Range/Units 14:20 14:20 14:20 WBC 7.3 (4.0-10.5) K/mm3 RBC 4.42 (4.1-5.6) M/mm3 Hgb 13.5 (12.5-18.0) gm/dl Hct 41.6 L (42-50) % MCV 94.1 (78-100) fl MCH 30.5 (26-32) pg MCHC 32.5 (32-36) g/dl RDW 13.6 (11.5-14.0) % Plt Count 146 L (150-450) K/mm3 MPV 10.9 (7.5-11.0) fl Gran % 75.2 H (36.0-66.0) % Eos # (Auto) 0.16 (0-0.5) Absolute Lymphs (auto) 0.90 L (1.0-4.6) Absolute Monos (auto) 0.73 (0.0-1.3) Lymphocytes % 12.3 L (24.0-44.0) % Monocytes % 10.0 (0.0-12.0) % Eosinophils % 2.2 (0.00-5.0) % Basophils % 0.3 (0.0-0.4) % Absolute Granulocytes 5.50 (1.4-6.9) Basophils # 0.02 (0-0.4) PT (8.83-12.87) SECONDS INR (0.8-3.0) APTT (24.1-36.1) SECONDS Sodium 138 (137-145) mmol/L Potassium 4.3 (3.5-5.1) mmol/L Chloride 103 (98-107) mmol/L Carbon Dioxide 29 (22-30) mmol/L Anion Gap 10.2 (5-15) MEQ/L BUN 13 (9-20) mg/dL Creatinine 0.68 (0.66-1.25) mg/dL Estimated GFR > 60.0 ML/MIN Glucose 96 (74-106) mg/dL Lactic Acid (0.4-2.0) Calcium 8.9 (8.4-10.2) mg/dL Total Bilirubin 0.70 (0.2-1.3) mg/dL AST 24 (17-59) U/L ALT 13 (0-50) U/L Alkaline Phosphatase 100 (38-126) U/L Troponin I < 0.012 (0.000-0.034) ng/mL Serum Total Protein 6.9 (6.3-8.2) g/dL Albumin 3.9 (3.5-5.0) g/dL Urine Color (YELLOW) Urine Appearance (CLEAR) Urine pH (5-6) Ur Specific [place] (1.005-1.025) Urine Protein (Negative) Urine Ketones (NEGATIVE) Urine Blood (0-5) Gilberto/ul Urine Nitrite (NEGATIVE) Urine Bilirubin (NEGATIVE) Urine Urobilinogen (0-1) mg/dL Ur Leukocyte Esterase (NEGATIVE) Urine WBC (Auto) (0-5) /HPF Urine RBC (Auto) (0-2) /HPF U Epithel Cells (Auto) (FEW) /HPF Urine Bacteria (Auto) (NEGATIVE) /HPF Urine Culture Reflexed (NO) Urine Glucose (NEGATIVE) mg/dL ABO Group Rh Factor Antibody Screen (NEGATIVE) 05/30/19 Range/Units 14:01 WBC (4.0-10.5) K/mm3 RBC (4.1-5.6) M/mm3 Hgb (12.5-18.0) gm/dl Hct (42-50) % MCV (78-100) fl MCH (26-32) pg MCHC (32-36) g/dl RDW (11.5-14.0) % Plt Count (150-450) K/mm3 MPV (7.5-11.0) fl Gran % (36.0-66.0) % Eos # (Auto) (0-0.5) Absolute Lymphs (auto) (1.0-4.6) Absolute Monos (auto) (0.0-1.3) Lymphocytes % (24.0-44.0) % Monocytes % (0.0-12.0) % Eosinophils % (0.00-5.0) % Basophils % (0.0-0.4) % Absolute Granulocytes (1.4-6.9) Basophils # (0-0.4) PT (8.83-12.87) SECONDS INR (0.8-3.0) APTT (24.1-36.1) SECONDS Sodium (137-145) mmol/L Potassium (3.5-5.1) mmol/L Chloride (98-107) mmol/L Carbon Dioxide (22-30) mmol/L Anion Gap (5-15) MEQ/L BUN (9-20) mg/dL Creatinine (0.66-1.25) mg/dL Estimated GFR ML/MIN Glucose (74-106) mg/dL Lactic Acid 1.3 (0.4-2.0) Calcium (8.4-10.2) mg/dL Total Bilirubin (0.2-1.3) mg/dL AST (17-59) U/L ALT (0-50) U/L Alkaline Phosphatase (38-126) U/L Troponin I (0.000-0.034) ng/mL Serum Total Protein (6.3-8.2) g/dL Albumin (3.5-5.0) g/dL Urine Color (YELLOW) Urine Appearance (CLEAR) Urine pH (5-6) Ur Specific [place] (1.005-1.025) Urine Protein (Negative) Urine Ketones (NEGATIVE) Urine Blood (0-5) Gilberto/ul Urine Nitrite (NEGATIVE) Urine Bilirubin (NEGATIVE) Urine Urobilinogen (0-1) mg/dL Ur Leukocyte Esterase (NEGATIVE) Urine WBC (Auto) (0-5) /HPF Urine RBC (Auto) (0-2) /HPF U Epithel Cells (Auto) (FEW) /HPF Urine Bacteria (Auto) (NEGATIVE) /HPF Urine Culture Reflexed (NO) Urine Glucose (NEGATIVE) mg/dL ABO Group Rh Factor Antibody Screen (NEGATIVE) - Progress Progress: improved Discussed with : Other (Dr Lopez) - Departure Departure Disposition: Home Clinical Impression: Hematuria Condition: Stable Critical Care Time: No Referrals: MOUNA YUN [Primary Care Provider] - Instructions: Blood in the Urine (Hematuria) in Adults Additional Instructions: Dr Lopez quest that you take no evening dose today of the Eliquis. In the morning cut the Eliquis dose to 2.5 mg twice a day0. Bleeding persists for more than 24 to [address] Lopez know. Prescriptions: Cephalexin Mh 500 mg [Keflex 500 mg] 500 mg PO QID #40 capsule
[2019-05-30] MEDS ORDERED: ROCEPHIN 1 Gm-D5w 50 ml Bag** 1 G/50 ML IVPB IV ONE (16:03)
[2019-05-30 16:42] VITALS: BP 123/72; PULSE 80; O2SAT 95
== END 2019-05-30 16:48 | disposition home or self-care (01) ==
LOC: ED 13:13
DX: R31.9 Hematuria, unspecified (principal); Z79.899 Other long term (current) drug therapy; I50.9 Heart failure, unspecified; E78.00 Pure hypercholesterolemia, unspecified; I10 Essential (primary) hypertension; Z95.810 Presence of automatic (implantable) cardiac defibrillator; Z96.643 Presence of artificial hip joint, bilateral; Z98.84 Bariatric surgery status
CPT/HCPCS: 36000; 36415; 80053; 81001; 83605; 84484; 85025; 85610; 85730; 86850; 86900; 86901; 87077; 87086; 87186; 93005; 96360; 96361; 99284; J0696

== ENCOUNTER 2021-11-25 12:50 | Emergency (ER) | payer MEDICARE ==
[2021-11-25 13:44] LABS: Absolute Neutrophil Ct (ANC) 2.95 x10^3/uL (1.4-6.9); Basophil (Absolute #) 0.07 x10^3/uL (0-0.4); Eosinophil % 4.4 % (0.00-5.0); Eosinophil (Absolute #) 0.21 x10^3/uL (0-0.5); Hematocrit 34.8 % (42-50); Hemoglobin 10.8 g/dL (12.5-18.0); Lymphocyte (Absolute #) 0.96 x10^3/uL (1.0-4.6); Lymphocytes % 19.9 % (24.0-44.0); Mean Cell Volume 98.9 fL (78-100); Mean Corpuscular Hemoglobin 30.7 pg (26-32); Mean Platelet Volume 9.4 fL (7.5-11.0); Monocyte (Absolute #) 0.61 x10^3/uL (0.0-1.3); Monocytes % 12.7 % (0.0-12.0); Neutrophil % 61.1 % (36.0-66.0); Platelet Count 227 x10^3/uL (150-450); Red Blood Count 3.52 x10^6/uL (4.1-5.6); Red Cell Distribution Width 13.6 % (11.5-14.0); White Blood Count 4.8 x10^3/uL (4.0-10.5)
[2021-11-25 13:51] LABS: Appearance TURBID (CLEAR); Bilirubin SMALL (NEGATIVE); Glucose 500 mg/dL (NEGATIVE); Ketones TRACE (NEGATIVE); Protein,Urine Dip >=300 (Negative); RBC LARGE Ery/ul (0-5); Urobilinogen 1 mg/dL (0-1)
[2021-11-25 13:52] LABS: Dipstick done @ ? MAIN LAB; Nitrite POSITIVE (NEGATIVE)
[2021-11-25] MEDS ORDERED: ROCEPHIN 2 Gm-D5w 50ML BAG** 2 G/50 ML IVPB IV STA (14:04)
[2021-11-25] MEDS ORDERED: ROCEPHIN 2 Gm-D5w 50ML BAG** 2 G/50 ML IVPB IV ONE (14:19)
[2021-11-25 14:21] LABS: WBC >100 /HPF (0-5)
[2021-11-25 14:44] LABS: Bacteria FEW /HPF (NEGATIVE); RBC >101 /HPF (0-2); Urine Cultured Indicated? YES
[2021-11-25 14:57] LABS: ALBUMIN 3.5 g/dL (3.5-5.0); BLOOD UREA NITROGEN 23 mg/dL (9-20); Creatinine 1 1.12 mg/dL (0.66-1.25); EST GLOMERULAR FILTRATION RATE > 60.0 ML/MIN; SGOT/AST 27 U/L (17-59); Total Protein 6.3 g/dL (6.3-8.2)
[2021-11-25 15:06] LABS: ALKALINE PHOSPHATASE 127 U/L (38-126); ANION GAP 10.4 MEQ/L (5-15); CHLORIDE 103 mmol/L (98-107); Calcium 8.6 mg/dL (8.4-10.2); Carbon Dioxide 26 mmol/L (22-30); Glucose 126 mg/dL (74-106); Potassium 4.5 mmol/L (3.5-5.1); SGPT/ALT 15 U/L (0-50); SODIUM 135 mmol/L (137-145)
[2021-11-25 15:24] VITALS: O2SAT 98
[2021-11-25] MEDS ORDERED: PYRIDIUM 200 MG PO STA (16:12)
--- NOTE | 2021-11-25 16:12 | ERPHSYRPT ---
- History of Present Illness Time Seen by Provider: 11/25/21 12:55 Source: patient, family Exam Limitations: no limitations Patient Subjective Stated Complaint: Pt c/o painful urination, blood in urine since started back on eliquis on Thursday, and hypotension Triage Nursing Assessment: Pt brought to the ER by his , hypotensive, rates penis pain as 5/10 but if he urinates it is 8/10, blood in urine, was told to not take one of his 2 blood pressure pills if his blood pressure is below a certain number and that has helped a little but pt feels his most problem is in his kidneys and urination, he was hospitilized about 1.5 weeks ago for a severe bladder infection, pt has no energy, denies rectal bleeding, pulses normal, skin n/w/d Physician History: 81 years old male with multiple medical problems including atrial fibrillation with ICD placement on Eliquis with recent bladder infection needing admission to [facility]. It was also associated with hematuria and Eliquis was held and it was restarted day before yesterday and since last night having blood-tinged in the urine with increased burning and suprapubic discomfort, symptoms similar to last time when he had UTI. Patient also feels weak fatigued and tired. Patient blood pressure is in 90s on presentation. Denies any chest pain or palpitations. Timing/Duration: today, gradual onset, worse Quality: burning Onset Location: suprapubic, urethral Pain Radiation: urethral Severity of Pain-Max: moderate Severity of Pain-Current: mild Modifying Factors: Worsens With: urinating Associated Symptoms: dysuria Allergies/Adverse Reactions: fluoxetine HCl [From [employer]] Allergy (Verified 11/25/21 13:26) Home Medications: Venlafaxine HCl ER 75 mg [Effexor XR 75 MG] 150 mg PO DAILY 05/25/13 [History] Carvedilol 3.125 mg [Coreg 3.125 MG] 3.125 mg PO DAILY 06/01/18 [History] Ferrous Sulfate [Iron] 325 mg PO BID 06/01/18 [History] Sacubitril/Valsartan [Entresto 49 mg-51 mg Tablet] 0.5 tablet PO DAILY 06/01/18 [History] Cholecalciferol (Vitamin D3) [D] 2,000 unit PO DAILY 11/25/21 [History] Empagliflozin [Jardiance] 10 mg PO QAM 11/25/21 [History] Folic Acid 1 mg PO DAILY 11/25/21 [History] Simvastatin 10 mg [Zocor 10MG] 10 mg PO DAILY 11/25/21 [History] Tamsulosin HCl 0.4 mg [Flomax 0.4 MG] 0.4 mg PO DAILY 11/25/21 [History] Hx Tetanus, Diphtheria Vaccination/Date Given: Yes Hx Influenza Vaccination/Date Given: Yes Hx Pneumococcal Vaccination/Date Given: Yes Travel Risk - International Travel Have you traveled outside of the country in past 3 weeks: No - Coronavirus Screening Are you exhibiting any of the following symptoms?: No Close contact with a COVID-19 positive Pt in past 14-21 Days: No - Vaccine Status Have you recieved a Covid-19 vaccination: Yes Vocal Performer: Moderna - Vaccination Dates Date of 2cond Vaccination (if applicable): 2020 - Past Medical History Pertinent Past Medical History: Yes Neurological History: No Pertinent History ENT History: No Pertinent History Cardiac History: Other Respiratory History: No Pertinent History Endocrine Medical History: No Pertinent History Musculoskeletal History: Osteoarthritis GI Medical History: No Pertinent History History: No Pertinent History Psycho-Social History: Depression Male Reproductive Disorders: No Pertinent History Other Medical History: 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 PACEMAKER/DEFIBRILLIATOR. B ROSALIE. - Past Surgical History Past Surgical History: Yes Neuro Surgical History: No Pertinent History Cardiac: Cardiac Catheterization, Internal Defibrillator, Pacemaker Respiratory: No Pertinent History Gastrointestinal: Other Genitourinary: No Pertinent History Musculoskeletal: Orthopedic Surgery Male Surgical History: No Pertinent History Other Surgical History: kelly hip replacement, bariatic surgery - Social History Smoking Status: Never smoker Exposure to second hand smoke: No Drug Use: none Patient Lives Alone: No - Review of Systems Constitutional: Fatigue, Weakness Eyes: No Symptoms Ears, Nose, & Throat: No Symptoms Respiratory: No Symptoms Cardiac: No Symptoms Abdominal/Gastrointestinal: Abdominal Pain Genitourinary Symptoms: Dysuria Musculoskeletal: Arthralgias Skin: No Symptoms Neurological: No Symptoms Psychological: No Symptoms Hematologic/Lymphatic: Easy Bleeding Immunological/Allergic: No Symptoms - Nursing Vital Signs Nursing Vital Signs: Initial Vital Signs Temperature 96.6 F 11/25/21 12:59 Pulse Rate 83 11/25/21 12:59 Blood Pressure 95/71 11/25/21 12:59 O2 Sat by Pulse Oximetry 97 11/25/21 12:59 Pain Scale Pain Intensity 4 - Physical Exam General Appearance: no apparent distress Eye Exam: PERRL/EOMI Ears, Nose, Throat Exam: normal ENT inspection Neck Exam: normal inspection, full range of motion Respiratory Exam: normal breath sounds, lungs clear Cardiovascular Exam: regular rate/rhythm, normal heart sounds Gastrointestinal/Abdomen Exam: soft, normal bowel sounds, No tenderness Male Genital Exam: normal genitalia Back Exam: normal inspection, normal range of motion Extremity Exam: normal inspection, normal range of motion Neurologic Exam: alert, oriented x 3, cooperative Skin Exam: normal color SpO2 Interpretation: normal SpO2: 98 O2 Delivery: Room Air Ordered Tests: Active Orders 24 hr Category Date Time Status IV Insertion STAT Care 11/25/21 13:43 Active CBC W DIFF Stat Lab 11/25/21 13:40 Completed CMP Stat Lab 11/25/21 13:40 Completed CULTURE,URINE Stat Lab 11/25/21 13:26 Received Lactic Acid Stat Lab 11/25/21 13:24 Completed MAG [MAGNESIUM] Stat Lab 11/25/21 13:40 Completed UA W/RFX CULTURE Stat Lab 11/25/21 13:26 Completed Medication Summary Discontinued Medications Generic Name Dose Route Start Last Admin Trade Name Tomq PRN Reason Stop Dose Admin Ceftriaxone Sodium/Dextrose 2 g in 50 mls @ 100 mls/hr 11/25/21 14:04 11/25/21 14:50 Rocephin 2 Gm-D5w 50ml Bag IV 11/25/21 14:33 Infused STAT STA Infusion Ceftriaxone Sodium/Dextrose Confirm 11/25/21 14:19 Rocephin 2 Gm-D5w 50ml Bag Administered 11/25/21 14:20 Dose 2 g in 50 mls @ ud IV .STK-MED ONE Lab/Rad Data: Laboratory Result Diagrams 11/25/21 13:40 11/25/21 13:40 Laboratory Results 11/25/21 11/25/21 11/25/21 Range/Units 13:40 13:40 13:40 WBC 4.8 (4.0-10.5) x10^3/uL RBC 3.52 L (4.1-5.6) x10^6/uL Hgb 10.8 L (12.5-18.0) g/dL Hct 34.8 L (42-50) % MCV 98.9 (78-100) fL MCH 30.7 (26-32) pg MCHC 31.0 L (32-36) g/dL RDW 13.6 (11.5-14.0) % Plt Count 227 (150-450) x10^3/uL MPV 9.4 (7.5-11.0) fL Gran % 61.1 (36.0-66.0) % Immature Gran % (Auto) 0.4 (0.00-0.4) % Nucleat RBC Rel Count 0.0 (0.00-0.1) % Eos # (Auto) 0.21 (0-0.5) x10^3/uL Immature Gran # (Auto) 0.02 (0.00-0.03) x10^3u/L Absolute Lymphs (auto) 0.96 L (1.0-4.6) x10^3/uL Absolute Monos (auto) 0.61 (0.0-1.3) x10^3/uL Absolute Nucleated RBC 0.00 (0.00-0.01) x10^3u/L Lymphocytes % 19.9 L (24.0-44.0) % Monocytes % 12.7 H (0.0-12.0) % Eosinophils % 4.4 (0.00-5.0) % Basophils % 1.5 (0.0-0.4) % Absolute Granulocytes 2.95 (1.4-6.9) x10^3/uL Basophils # 0.07 (0-0.4) x10^3/uL Sodium 135 L (137-145) mmol/L Potassium 4.5 (3.5-5.1) mmol/L Chloride 103 (98-107) mmol/L Carbon Dioxide 26 (22-30) mmol/L Anion Gap 10.4 (5-15) MEQ/L BUN 23 H (9-20) mg/dL Creatinine 1.12 (0.66-1.25) mg/dL Estimated GFR > 60.0 ML/MIN Glucose 126 H (74-106) mg/dL Lactic Acid (0.4-2.0) Calcium 8.6 (8.4-10.2) mg/dL Magnesium 2.4 H (1.6-2.3) mg/dL Total Bilirubin 0.30 (0.2-1.3) mg/dL AST 27 (17-59) U/L ALT 15 (0-50) U/L Alkaline Phosphatase 127 H (38-126) U/L Serum Total Protein 6.3 (6.3-8.2) g/dL Albumin 3.5 (3.5-5.0) g/dL Urinalys Dipstick Clnc Urine Color (YELLOW) Urine Appearance (CLEAR) Urine pH (5-6) Ur Specific [place] (1.005-1.025) POC Urine Protein Conf (Negative) Urine Ketones (NEGATIVE) Urine Nitrite (NEGATIVE) Urine Bilirubin (NEGATIVE) Urine Urobilinogen (0-1) mg/dL Urine Leukocytes (NEGATIVE) Urine WBC (Auto) (0-5) /HPF Urine RBC (Auto) (0-2) /HPF U Epithel Cells (Auto) (FEW) /HPF Urine Bacteria (Auto) (NEGATIVE) /HPF Urine RBC (0-5) Gilberto/ul Ur Culture Indicated? Urine Glucose (NEGATIVE) mg/dL 11/25/21 11/25/21 Range/Units 13:26 13:24 WBC (4.0-10.5) x10^3/uL RBC (4.1-5.6) x10^6/uL Hgb (12.5-18.0) g/dL Hct (42-50) % MCV (78-100) fL MCH (26-32) pg MCHC (32-36) g/dL RDW (11.5-14.0) % Plt Count (150-450) x10^3/uL MPV (7.5-11.0) fL Gran % (36.0-66.0) % Immature Gran % (Auto) (0.00-0.4) % Nucleat RBC Rel Count (0.00-0.1) % Eos # (Auto) (0-0.5) x10^3/uL Immature Gran # (Auto) (0.00-0.03) x10^3u/L Absolute Lymphs (auto) (1.0-4.6) x10^3/uL Absolute Monos (auto) (0.0-1.3) x10^3/uL Absolute Nucleated RBC (0.00-0.01) x10^3u/L Lymphocytes % (24.0-44.0) % Monocytes % (0.0-12.0) % Eosinophils % (0.00-5.0) % Basophils % (0.0-0.4) % Absolute Granulocytes (1.4-6.9) x10^3/uL Basophils # (0-0.4) x10^3/uL Sodium (137-145) mmol/L Potassium (3.5-5.1) mmol/L Chloride (98-107) mmol/L Carbon Dioxide (22-30) mmol/L Anion Gap (5-15) MEQ/L BUN (9-20) mg/dL Creatinine (0.66-1.25) mg/dL Estimated GFR ML/MIN Glucose (74-106) mg/dL Lactic Acid 1.4 (0.4-2.0) Calcium (8.4-10.2) mg/dL Magnesium (1.6-2.3) mg/dL Total Bilirubin (0.2-1.3) mg/dL AST (17-59) U/L ALT (0-50) U/L Alkaline Phosphatase (38-126) U/L Serum Total Protein (6.3-8.2) g/dL Albumin (3.5-5.0) g/dL Urinalys Dipstick Clnc MAIN LAB Urine Color PINK (YELLOW) Urine Appearance TURBID (CLEAR) Urine pH 6.0 (5-6) Ur Specific [place] 1.020 (1.005-1.025) POC Urine Protein Conf >=300 (Negative) Urine Ketones TRACE (NEGATIVE) Urine Nitrite POSITIVE (NEGATIVE) Urine Bilirubin SMALL (NEGATIVE) Urine Urobilinogen 1 (0-1) mg/dL Urine Leukocytes LARGE (NEGATIVE) Urine WBC (Auto) >100 (0-5) /HPF Urine RBC (Auto) >101 (0-2) /HPF U Epithel Cells (Auto) NONE (FEW) /HPF Urine Bacteria (Auto) FEW (NEGATIVE) /HPF Urine RBC LARGE (0-5) Gilberto/ul Ur Culture Indicated? YES Urine Glucose 500 (NEGATIVE) mg/dL - Progress Progress: improved Progress Note: 11/25/21 16:16 Patient has stable H&H 10.8 and was 11.1 almost a week ago from [place]. No worsening of renal functions. Does have UTI, given a dose of Rocephin and will continue with cefpodoxime to go home. Recommended outpatient primary care/urology follow-up. Also recommended to hold evening dose of Eliquis and talk to primary sewing line baler and discuss about recurrent hematuria in the morning. Otherwise he has a normal white count, lactate. Blood pressure improved to 110 without any intervention. Discussed signs symptoms of worsening needing return to ER which she seems understanding. Counseled pt/family regarding: lab results, diagnosis, need for follow-up - Departure Departure Disposition: Home Clinical Impression: Acute hemorrhagic cystitis Condition: Stable Critical Care Time: No Referrals: STEFANIA TOLEDO MD [Primary Care Provider] - Follow up/PCP as directed (1-2 days for reevaluation) Instructions: Urinary Tract Infection, Adult (DC) Additional Instructions: Hold your evening dose of Eliquis and talk to your primary sewing line baler about further instruction whether to continue or stop because of recurrent blood in urine. Continue with antibiotics, take Tylenol as needed. Return to ER for worsening difficulty urination or if develop fever chills, intractable vomiting, low blood pressure etc. Prescriptions: Phenazopyridine HCl 200 mg [Pyridium 200 mg] 200 mg PO TID #6 tablet Cefpodoxime Proxetil 200 mg [Vantin 200 mg] 200 mg PO BID 7 Days #14 tablet
[2021-11-25] MEDS ORDERED: PYRIDIUM 200 MG ONE (16:27)
[2021-11-25 16:33] VITALS: PULSE 68
[2021-11-25] MEDS ORDERED: Sodium Chloride 0.9% 500 ML 500 ML IV ONE ×2 (16:46→16:50)
[2021-11-25 18:12] VITALS: BP 112/67
== END 2021-11-25 18:21 | disposition home or self-care (01) ==
LOC: ED 12:50
DX: N30.01 Acute cystitis with hematuria (principal); R30.0 Dysuria; R10.30 Lower abdominal pain, unspecified; R53.1 Weakness; Z79.01 Long term (current) use of anticoagulants; Z79.899 Other long term (current) drug therapy
CPT/HCPCS: 36000; 36415; 80053; 81015; 83605; 83735; 85025; 87086; 96365; 99284; J0696; A9270-GY

== ENCOUNTER 2022-09-26 10:04 | Emergency (ER) | payer MEDICARE ==
--- NOTE | 2022-09-26 10:10 | ERPHSYRPT ---
- History of Present Illness Time Seen by Provider: 09/26/22 10:09 Source: patient, family Exam Limitations: no limitations Physician History: This is an 82-year-old white male patient who presents to the emergency department with complaint of weakness. He denies shortness of breath. He denies chest pain. Patient's primary care provider is Dr. Toledo. Patient originally went to the [facility] but then they sent him over to our facility because of his weakness and associated weight loss over several months per his report. He has no specific complaints other than weakness and weight loss over a long period of time. Patient has a history of hypertension, CHF, h yperlipidemia, chronic anemia, diabetes and coronary artery disease. He has a defibrillator and pacemaker in place. He also has prostate issues, osteoarthritis and depression. Patient states that he has been unable to secure dentures. The dentures have been delayed. He is not eating well per his report. Patient denies being suicidal or homicidal. He is taking Eliquis. Timing/Duration: other (Chronic over several months per his report) Severity: mild Associated Symptoms: loss of appetite, weakness Allergies/Adverse Reactions: fluoxetine HCl [From [facility]oc[facility]ac] Allergy (Verified 11/25/21 13:26) Home Medications: Venlafaxine HCl ER 75 mg [Effexor XR 75 MG] 225 mg PO DAILY 05/25/13 [History] Ferrous Sulfate [Iron] 325 mg PO BID 06/01/18 [History] Cholecalciferol (Vitamin D3) [D-2000] 1,000 unit PO DAILY 11/25/21 [History] Simvastatin 10 mg [Zocor 10MG] 10 mg PO DAILY 11/25/21 [History] Tamsulosin HCl 0.4 mg [Flomax 0.4 MG] 0.4 mg PO DAILY 11/25/21 [History] Apixaban [Eliquis] 2.5 mg PO BID 09/26/22 [History] Cyanocobalamin/Folic Acid [Vitamin S56-Vioqm Acid Tablet] 1 each PO DAILY 09/26/22 [History] Dapagliflozin Propanediol [Farxiga] 10 mg PO DAILY 09/26/22 [History] Finasteride 5 mg [Proscar 5 MG] 5 mg PO DAILY 09/26/22 [History] Furosemide 20 mg [Lasix 20 mg] 20 mg PO DAILY 09/26/22 [History] Metoprolol Tartrate 25 mg [Lopressor 25MG Tab] 12.5 mg PO BID 09/26/22 [History] Potassium Chloride [Klor-Con M10] 10 meq PO DAILY 09/26/22 [History] Hx Tetanus, Diphtheria Vaccination/Date Given: Yes Hx Influenza Vaccination/Date Given: Yes Hx Pneumococcal Vaccination/Date Given: Yes Travel Risk - International Travel Have you traveled outside of the country in past 3 weeks: No - Coronavirus Screening Are you exhibiting any of the following symptoms?: No Close contact with a COVID-19 positive Pt in past 14-21 Days: No - Vaccine Status Have you recieved a Covid-19 vaccination: Yes Landscaping Supervisor: Moderna - Vaccination Dates Date of 2cond Vaccination (if applicable): 2020 - Review of Systems Constitutional: Weakness Eyes: No Symptoms Ears, Nose, & Throat: No Symptoms Respiratory: No Symptoms Cardiac: No Symptoms Abdominal/Gastrointestinal: No Symptoms Genitourinary Symptoms: No Symptoms Musculoskeletal: No Symptoms Skin: No Symptoms Neurological: No Symptoms Psychological: No Symptoms Endocrine: Other (Weight loss) Hematologic/Lymphatic: Anemia (Chronic) Immunological/Allergic: No Symptoms All Other Systems: Reviewed and Negative - Past Medical History Pertinent Past Medical History: Yes Neurological History: No Pertinent History ENT History: No Pertinent History Cardiac History: Other Respiratory History: No Pertinent History Endocrine Medical History: No Pertinent History Musculoskeletal History: Osteoarthritis GI Medical History: No Pertinent History History: No Pertinent History Psycho-Social History: Depression Male Reproductive Disorders: No Pertinent History Other Medical History: 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 PACEMAKER/DEFIBRILLIATOR. B ROSALIE. - Past Surgical History Past Surgical History: Yes Neuro Surgical History: No Pertinent History Cardiac: Cardiac Catheterization, Internal Defibrillator, Pacemaker Respiratory: No Pertinent History Gastrointestinal: Other Genitourinary: No Pertinent History Musculoskeletal: Orthopedic Surgery Male Surgical History: No Pertinent History Other Surgical History: kelly hip replacement, bariatic surgery - Social History Smoking Status: Never smoker Exposure to second hand smoke: No Drug Use: none Patient Lives Alone: No - Nursing Vital Signs Nursing Vital Signs: Initial Vital Signs Temperature 97.1 F 09/26/22 10:19 Pulse Rate 93 H 09/26/22 10:19 Respiratory Rate 20 09/26/22 10:19 Blood Pressure 122/84 09/26/22 10:19 O2 Sat by Pulse Oximetry 93 L 09/26/22 10:19 Pain Scale Pain Intensity 0 - Physical Exam General Appearance: no apparent distress, alert, anxiety, thin Eye Exam: PERRL/EOMI, eyes nml inspection Ears, Nose, Throat Exam: moist mucous membranes, other (Edentulous) Neck Exam: normal inspection, non-tender, supple, full range of motion Respiratory Exam: normal breath sounds, lungs clear, airway intact, No chest tenderness, No respiratory distress Cardiovascular Exam: regular rate/rhythm, normal heart sounds, normal peripheral pulses Gastrointestinal/Abdomen Exam: soft, normal bowel sounds, No tenderness Rectal Exam: not done Back Exam: normal inspection, normal range of motion, No CVA tenderness, No vertebral tenderness Extremity Exam: normal inspection, normal range of motion, pelvis stable Neurologic Exam: alert, oriented x 3, cooperative, justice of the peace II-XII nml as tested, normal mood/affect, nml cerebellar function, nml station & gait, sensation nml Skin Exam: normal color, warm, dry Lymphatic Exam: No adenopathy SpO2 Interpretation: normal O2 Delivery: Room Air - Course Nursing assessment & vital signs reviewed: Yes Ordered Tests: Active Orders 24 hr Category Date Time Status EKG-ER Only STAT Care 09/26/22 10:57 Active IV Insertion STAT Care 09/26/22 10:57 Active CBC W DIFF Stat Lab 09/26/22 11:00 Completed CMP Stat Lab 09/26/22 11:00 Completed CULTURE,URINE Stat Lab 09/26/22 13:02 Received MAG [MAGNESIUM] Stat Lab 09/26/22 11:00 Completed TROPONIN Q4H Lab 09/26/22 11:00 Completed TROPONIN Q4H Lab 09/26/22 15:00 Ordered TROPONIN Q4H Lab 09/26/22 19:00 Ordered UA W/RFX UR CULTURE Stat Lab 09/26/22 13:02 Completed Medication Summary Generic Name Dose Route Start Last Admin Trade Name Freq PRN Reason Stop Dose Admin Ceftriaxone Sodium/Dextrose 1 g in 50 mls @ 100 mls/hr 09/26/22 13:45 Rocephin 1 Gm-D5w 50 Ml Bag IV 09/26/22 14:14 STAT STA Discontinued Medications Generic Name Dose Route Start Last Admin Trade Name Pasquale PRN Reason Stop Dose Admin Sodium Chloride 1,000 mls @ 999 mls/hr 09/26/22 10:57 09/26/22 12:03 Sodium Chloride 0.9% 1000 Ml IV 09/26/22 11:57 Infused .Q1H1M STA Infusion Sodium Chloride Confirm 09/26/22 11:00 Sodium Chloride 0.9% 1000 Ml Administered 09/26/22 11:01 Dose 1,000 mls @ ud .ROUTE .K-MED ONE Lab/Rad Data: Laboratory Result Diagrams 09/26/22 11:00 09/26/22 11:00 Laboratory Results 09/26/22 09/26/22 09/26/22 Range/Units 13:02 11:00 11:00 WBC (4.0-10.5) x10^3/uL RBC (4.1-5.6) x10^6/uL Hgb (12.5-18.0) g/dL Hct (42-50) % MCV (78-100) fL MCH (26-32) pg MCHC (32-36) g/dL RDW (11.5-14.0) % Plt Count (150-450) x10^3/uL MPV (7.5-11.0) fL Gran % (36.0-66.0) % Immature Gran % (Auto) (0.00-0.4) % Nucleat RBC Rel Count (0.00-0.1) % Eos # (Auto) (0-0.5) x10^3/uL Immature Gran # (Auto) (0.00-0.03) x10^3u/L Absolute Lymphs (auto) (1.0-4.6) x10^3/uL Absolute Monos (auto) (0.0-1.3) x10^3/uL Absolute Nucleated RBC (0.00-0.01) x10^3u/L Lymphocytes % (24.0-44.0) % Monocytes % (0.0-12.0) % Eosinophils % (0.00-5.0) % Basophils % (0.0-0.4) % Absolute Granulocytes (1.4-6.9) x10^3/uL Basophils # (0-0.4) x10^3/uL Sodium (137-145) mmol/L Potassium (3.5-5.1) mmol/L Chloride (98-107) mmol/L Carbon Dioxide (22-30) mmol/L Anion Gap (5-15) MEQ/L BUN (9-20) mg/dL Creatinine (0.66-1.25) mg/dL Estimated GFR ML/MIN Glucose (74-106) mg/dL Calcium (8.4-10.2) mg/dL Magnesium 2.5 H (1.6-2.3) mg/dL Total Bilirubin (0.2-1.3) mg/dL AST (17-59) U/L ALT (0-50) U/L Alkaline Phosphatase (38-126) U/L Troponin I < 0.012 (0.000-0.034) ng/mL Serum Total Protein (6.3-8.2) g/dL Albumin (3.5-5.0) g/dL Urine Color Yellow (Yellow) Urine Appearance Turbid A (Clear) Urine pH 5.5 (4.6-8.0) Ur Specific [place] 1.010 (1.005-1.030) Urine Protein 30 (Negative) Urine Glucose (UA) Negative (Negative) mg/dL Urine Ketones Negative (Negative) Urine Blood Moderate A (Negative) Urine Nitrite Negative (Negative) Urine Bilirubin Negative (Negative) Urine Urobilinogen 1.0 A (0.2) mg/dL Ur Leukocyte Esterase Large A (Negative) U Hyaline Cast (Auto) 3-5 A (0-2) /LPF Urine Microscopic RBC 3-5 (0-5) /HPF Urine Microscopic WBC >100 A (0-5) /HPF Ur Epithelial Cells None Seen (None Seen) /HPF Urine Bacteria None Seen (None Seen) /HPF Urine Yeast (Budding) Few A (None Seen) /HPF Urine Culture Reflexed YES (NO) 09/26/22 09/26/22 Range/Units 11:00 11:00 WBC 6.8 (4.0-10.5) x10^3/uL RBC 4.85 (4.1-5.6) x10^6/uL Hgb 14.2 (12.5-18.0) g/dL Hct 45.4 (42-50) % MCV 93.6 (78-100) fL MCH 29.3 (26-32) pg MCHC 31.3 L (32-36) g/dL RDW 15.6 H (11.5-14.0) % Plt Count 269 (150-450) x10^3/uL MPV 10.0 (7.5-11.0) fL Gran % 68.2 H (36.0-66.0) % Immature Gran % (Auto) 1.2 H (0.00-0.4) % Nucleat RBC Rel Count 0.0 (0.00-0.1) % Eos # (Auto) 0.19 (0-0.5) x10^3/uL Immature Gran # (Auto) 0.08 H (0.00-0.03) x10^3u/L Absolute Lymphs (auto) 1.02 (1.0-4.6) x10^3/uL Absolute Monos (auto) 0.79 (0.0-1.3) x10^3/uL Absolute Nucleated RBC 0.00 (0.00-0.01) x10^3u/L Lymphocytes % 15.0 L (24.0-44.0) % Monocytes % 11.6 (0.0-12.0) % Eosinophils % 2.8 (0.00-5.0) % Basophils % 1.2 (0.0-0.4) % Absolute Granulocytes 4.63 (1.4-6.9) x10^3/uL Basophils # 0.08 (0-0.4) x10^3/uL Sodium 136 L (137-145) mmol/L Potassium 4.4 (3.5-5.1) mmol/L Chloride 98 (98-107) mmol/L Carbon Dioxide 24 (22-30) mmol/L Anion Gap 18.2 H (5-15) MEQ/L BUN 26 H (9-20) mg/dL Creatinine 1.28 H (0.66-1.25) mg/dL Estimated GFR 57.5 ML/MIN Glucose 91 (74-106) mg/dL Calcium 9.1 (8.4-10.2) mg/dL Magnesium (1.6-2.3) mg/dL Total Bilirubin 0.70 (0.2-1.3) mg/dL AST 27 (17-59) U/L ALT 19 (0-50) U/L Alkaline Phosphatase 119 (38-126) U/L Troponin I (0.000-0.034) ng/mL Serum Total Protein 8.2 (6.3-8.2) g/dL Albumin 4.3 (3.5-5.0) g/dL Urine Color (Yellow) Urine Appearance (Clear) Urine pH (4.6-8.0) Ur Specific [place] (1.005-1.030) Urine Protein (Negative) Urine Glucose (UA) (Negative) mg/dL Urine Ketones (Negative) Urine Blood (Negative) Urine Nitrite (Negative) Urine Bilirubin (Negative) Urine Urobilinogen (0.2) mg/dL Ur Leukocyte Esterase (Negative) U Hyaline Cast (Auto) (0-2) /LPF Urine Microscopic RBC (0-5) /HPF Urine Microscopic WBC (0-5) /HPF Ur Epithelial Cells (None Seen) /HPF Urine Bacteria (None Seen) /HPF Urine Yeast (Budding) (None Seen) /HPF Urine Culture Reflexed (NO) - Progress Progress: improved, re-examined Progress Note: 09/26/22 13:46 This patient's medical issue is 1 of moderate complexity. The level of complexity and the work-up performed is based on the review of the patient's past medical history, review of the patient's medication list, review the patient's drug allergy list, history present illness and physical findings on examination. The work-up in this patient includes a twelve-lead EKG, troponin level, intravenous line placement and infusion of 1 L normal saline solution, ur inalysis, CBC, and CMP. I reviewed the results of the work-up performed. The patient has a urinary tract infection. There are no other acute findings in the patient's work-up. We will provide him with 1 g of intravenous Rocephin and then send a prescription remotely to his pharmacy for 7 more days of antibiotic. Counseled pt/family regarding: lab results, diagnosis, need for follow-up Medical Desision Making - Independent Historian Additional History obtained from: Spouse - Diagnostic Testing Diagnostic test were ordered, analyzed, and reviewed by me: Yes - Risk of complications The pt has a mod risk of morbidity or mortality based on: Need for prescription drug management - Departure Departure Disposition: Home Clinical Impression: Weakness, UTI (urinary tract infection), Anxiety about health Condition: Stable Critical Care Time: No Referrals: STEFANIA TOLEDO MD [Primary Care Provider] - Follow up/PCP as directed Additional Instructions: Drink plenty of clear liquids. Take your antibiotics and other medication as prescribed. Call your primary care provider today to make arranges for follow- up appointment the next 3 to 5 days. Prescriptions: Ciprofloxacin [Cipro 500 MG] 500 mg PO BID #14 tablet
[2022-09-26] MEDS ORDERED: Sodium Chloride 0.9% 1000 ML 1,000 ML IV STA (10:57)
[2022-09-26] MEDS ORDERED: Sodium Chloride 0.9% 1000 ML 1,000 ML ONE (11:00)
[2022-09-26 11:14] LABS: Absolute Neutrophil Ct (ANC) 4.63 x10^3/uL (1.4-6.9); BASOPHIL % 1.2 % (0.0-0.4); Basophil (Absolute #) 0.08 x10^3/uL (0-0.4); Eosinophil % 2.8 % (0.00-5.0); Eosinophil (Absolute #) 0.19 x10^3/uL (0-0.5); Hematocrit 45.4 % (42-50); Hemoglobin 14.2 g/dL (12.5-18.0); IMMATURE GRAN # 0.08 x10^3u/L (0.00-0.03); IMMATURE GRAN % 1.2 % (0.00-0.4); Lymphocyte (Absolute #) 1.02 x10^3/uL (1.0-4.6); Mean Cell Volume 93.6 fL (78-100); Mean Corpuscular Hemoglobin 29.3 pg (26-32); Mean Corpuscular Hgb Concent. 31.3 g/dL (32-36); Monocyte (Absolute #) 0.79 x10^3/uL (0.0-1.3); Monocytes % 11.6 % (0.0-12.0); Neutrophil % 68.2 % (36.0-66.0); Platelet Count 269 x10^3/uL (150-450); Red Blood Count 4.85 x10^6/uL (4.1-5.6); Red Cell Distribution Width 15.6 % (11.5-14.0); White Blood Count 6.8 x10^3/uL (4.0-10.5)
[2022-09-26 11:28] LABS: ALBUMIN 4.3 g/dL (3.5-5.0); ANION GAP 18.2 MEQ/L (5-15); BILIRUBIN,TOTAL 0.7 mg/dL (0.2-1.3); Calcium 9.1 mg/dL (8.4-10.2); Creatinine 1 1.28 mg/dL (0.66-1.25); EST GLOMERULAR FILTRATION RATE 57.5 ML/MIN; Potassium 4.4 mmol/L (3.5-5.1); Total Protein 8.2 g/dL (6.3-8.2)
[2022-09-26 13:29] LABS: Appearance Turbid (Clear); Bacteria None Seen /HPF (None Seen); Bilirubin Negative (Negative); Blood Moderate (Negative); Epithelial Cells None Seen /HPF (None Seen); Glucose, Urine Negative (Negative); Ketones Negative (Negative); Leukocyte Esterase Large (Negative); Nitrite Negative (Negative); Ph 5.5 (4.6-8.0); Protein,Urine Dip 30 (Negative); WBC >100 /HPF (0-5)
[2022-09-26 13:44] LABS: ADD URINE CULTURE? YES (NO); Budding Yeast Few /HPF (None Seen)
[2022-09-26] MEDS ORDERED: ROCEPHIN 1 Gm-D5w 50 ml Bag** 1 G/50 ML IVPB IV STA (13:45)
[2022-09-26] MEDS ORDERED: ROCEPHIN 1 Gm-D5w 50 ml Bag** 1 G/50 ML IVPB IV ONE (13:55)
[2022-09-26 14:15] VITALS: O2SAT 99
[2022-09-26 14:36] VITALS: BP 94/62; PULSE 93
== END 2022-09-26 15:21 | disposition home or self-care (01) ==
LOC: ED 10:04
DX: N39.0 Urinary tract infection, site not specified (principal); F45.9 Somatoform disorder, unspecified; R53.1 Weakness; R63.4 Abnormal weight loss; I11.0 Hypertensive heart disease with heart failure; I50.9 Heart failure, unspecified; E78.5 Hyperlipidemia, unspecified; E11.9 Type 2 diabetes mellitus without complications; Z79.01 Long term (current) use of anticoagulants; Z79.84 Long term (current) use of oral hypoglycemic drugs; Z79.899 Other long term (current) drug therapy
CPT/HCPCS: 36000; 36415; 80053; 81001; 83735; 84484; 85025; 87086; 93005; 96360; 96365; 99284; J0696

== ENCOUNTER 2023-04-10 10:41 | Observation (INO) | payer MEDICARE ==
--- NOTE | 2023-04-10 10:50 | ERPHSYRPT ---
- History of Present Illness Time Seen by Provider: 04/10/23 10:49 Source: patient, EMS, old records Exam Limitations: no limitations Physician History: This is an 83-year-old white male patient of Dr. Bowen who was brought to the emergency department by the engineering project manager service because of confusion, dysuria, urinary frequency and gross hematuria. It appears as though the patient was started on cefdinir yesterday and he did take a dose this morning. Patient arrives to the emergency department with low-grade fever as well. He denies significant abdominal pain. He denies chest pain. He denies shortness of breath. Patient has a history of hypertension, CHF, hyperlipidemia, chronic anemia, diabetes, coronary artery disease (pacemaker defibrillator on Eliquis) prostate issues and osteoarthritis as well as depression. Au catheter placed and the urine was grossly positive for blood and had a foul odor. Timing/Duration: worse Severity: moderate Deficits: no difficulties Baseline/Normal Cognition: alert oriented x 3 Current Cognition: alert oriented x 3 Baseline Gait: walks w/o assistance Associated Symptoms: confusion, fever, No loss of consciousness, No nausea, No vomiting Allergies/Adverse Reactions: fluoxetine HCl [From Cell>Point] Allergy (Verified 04/10/23 11:17) Home Medications: Venlafaxine HCl ER 75 mg [Effexor XR 75 MG] 225 mg PO DAILY 05/25/13 [History] Ferrous Sulfate [Iron] 325 mg PO DAILY 06/01/18 [History] Apixaban [Eliquis] 2.5 mg PO BID 09/26/22 [History] Cyanocobalamin/Folic Acid [Vitamin R68-Puzzs Acid Tablet] 500 mcg PO DAILY 09/26/22 [History] Finasteride 5 mg [Proscar 5 MG] 5 mg PO DAILY 09/26/22 [History] Furosemide 20 mg [Lasix 20 mg] 20 mg PO DAILY 09/26/22 [History] Metoprolol Tartrate 25 mg [Lopressor 25MG Tab] 12.5 mg PO DAILY 09/26/22 [History] Potassium Chloride [Klor-Con M10] 10 meq PO DAILY 09/26/22 [History] Acetaminophen 500 mg [Tylenol Extra Strength 500 mg] 500 mg PO Q6HPRN PRN 04/10/23 [History] Albuterol Sulfate [Proair Digihaler] 90 mcg IH QIDPRN PRN 04/10/23 [History] Bisacodyl 10 mg [Dulcolax 10 MG SUPP] 10 mg [facility] 04/10/23 [History] Bisacodyl 5 mg [Dulcolax 5 mg] 5 mg PO DAILY PRN PRN 04/10/23 [History] Bupropion HCl Xl 150 mg [Wellbutrin XL 150 MG] 150 mg PO DAILY 04/10/23 [History] Cholecalciferol (Vitamin D3) [Vitamin D3] 50 mcg PO DAILY 04/10/23 [History] Ciprofloxacin HCl [Cipro] 250 mg PO BID 04/10/23 [History] Cyclobenzaprine HCl 5 mg PO TIDPRN 04/10/23 [History] Empagliflozin [Jardiance] 10 mg PO DAILY 04/10/23 [History] Hydrocodone/Acetaminophen [Hydrocodone-Acetamin 7.5-325] 1 tablet PO QID [History] Megestrol Acetate 625 mg PO DAILY 04/10/23 [History] Methenamine Hippurate 1 gm PO BID 04/10/23 [History] Polyethylene Glycol 3350 17 gm [Miralax Powder 17GM PACKET] 1 each PO DAILY 04/10/23 [History] Sennosides [Vegetable Laxative] 2 tab PO DAILY PRN PRN 04/10/23 [History] Sodium Phosphate,[place]-Dibasic [Fleet Enema] 133 ml [facility] 04/10/23 [History] Tramadol HCl 50 mg [Ultram 50 mg] 50 mg PO Q6H 04/10/23 [History] Zinc Oxide Ointment 30 gm 1 each .ROUTE 04/10/23 [History] Hx Tetanus, Diphtheria Vaccination/Date Given: Yes Hx Influenza Vaccination/Date Given: Yes Hx Pneumococcal Vaccination/Date Given: Yes Travel Risk - International Travel Have you traveled outside of the country in past 3 weeks: No - Coronavirus Screening Are you exhibiting any of the following symptoms?: No Close contact with a COVID-19 positive Pt in past 14-21 Days: No - Vaccine Status Have you recieved a Covid-19 vaccination: Yes 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 - Vaccination Dates Date of 2cond Vaccination (if applicable): unknown - Review of Systems Constitutional: Fever, Weakness Eyes: No Symptoms Ears, Nose, & Throat: No Symptoms Respiratory: No Symptoms Cardiac: No Symptoms Abdominal/Gastrointestinal: No Symptoms Genitourinary Symptoms: Dysuria, Frequency, Hematuria Musculoskeletal: No Symptoms Skin: No Symptoms Neurological: No Symptoms Psychological: No Symptoms Endocrine: No Symptoms Hematologic/Lymphatic: No Symptoms Immunological/Allergic: No Symptoms All Other Systems: Reviewed and Negative - Past Medical History Pertinent Past Medical History: Yes Neurological History: No Pertinent History ENT History: Cataracts Cardiac History: Arrhythmia Respiratory History: No Pertinent History Endocrine Medical History: No Pertinent History Musculoskeletal History: No Pertinent History GI Medical History: No Pertinent History History: Other Psycho-Social History: No Pertinent History Male Reproductive Disorders: Other Other Medical History: 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 PACEMAKER/DEFIBRILLIATOR. B ROSALIE. - Past Surgical History Past Surgical History: Yes Neuro Surgical History: No Pertinent History Cardiac: Pacemaker Respiratory: No Pertinent History Gastrointestinal: Other Genitourinary: No Pertinent History Musculoskeletal: Joint Replacement Male Surgical History: No Pertinent History Other Surgical History: kelly hip replacement, bariatic surgery - Social History Smoking Status: Never smoker How long have you smoked: never Exposure to second hand smoke: Yes Drug Use: none Patient Lives Alone: No - Nursing Vital Signs Nursing Vital Signs: Initial Vital Signs Temperature 100.9 F 04/10/23 10:44 Pulse Rate 106 H 04/10/23 10:44 Blood Pressure 129/77 04/10/23 10:44 O2 Sat by Pulse Oximetry 99 04/10/23 10:44 Pain Scale Pain Intensity 0 - Autumn Coma Scale Best Eye Response (Clifford): (4) open spontaneously Best Verbal Response (Clifford): (5) oriented Best Motor Response (Autumn): (6) obeys commands Autumn Total: 15 - Physical Exam General Appearance: mild distress, alert, anxiety Eye Exam: bilateral eye: normal inspection, PERRL, EOMI Ears, Nose, Throat Exam: dry mucous membranes Neck Exam: normal inspection, non-tender, supple, full range of motion Respiratory: normal breath sounds, lungs clear, airway intact, No chest tenderness, No respiratory distress Cardiovascular: tachycardia Gastrointestinal: soft, normal bowel sounds, tenderness (Mild pubic to palpation), No guarding Rectal Exam: not done Back Exam: normal inspection, normal range of motion, No CVA tenderness, No vertebral tenderness Extremity Exam: normal inspection, normal range of motion, pelvis stable Mental Status: alert, oriented x 3, 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 Exam: normal hearing, normal speech, PERRL Motor/Sensory: no motor deficit, no sensory deficit, no pronator drift Skin Exam: normal color, warm, dry SpO2 Interpretation: normal O2 Delivery: Room Air - Course Nursing assessment & vital signs reviewed: Yes Ordered Tests: Active Orders 24 hr Category Date Time Status IV Insertion STAT Care 04/10/23 11:18 Completed IV Insertion-2nd Peripheral STAT Care 04/10/23 11:39 Active BLOOD CULTURE Stat Lab 04/10/23 11:46 Received CBC W DIFF Stat Lab 04/10/23 11:35 Completed CMP Stat Lab 04/10/23 11:35 Completed CULTURE,URINE Stat Lab 04/10/23 11:20 Received Lactic Acid Stat Lab 04/10/23 11:36 Completed UA W/RFX UR CULTURE Stat Lab 04/10/23 11:20 Completed Medication Summary Discontinued Medications Generic Name Dose Route Start Last Admin Trade Name Freq PRN Reason Stop Dose Admin Acetaminophen 650 mg 04/10/23 11:23 04/10/23 11:46 Acetaminophen 325 Mg Tablet PO 04/10/23 11:24 650 mg STAT ONE Administration Acetaminophen Confirm 04/10/23 11:41 Acetaminophen 325 Mg Tablet Administered 04/10/23 11:42 Dose 650 mg .ROUTE .STK-MED ONE Sodium Chloride 1,000 mls @ 999 mls/hr 04/10/23 11:18 04/10/23 12:46 Sodium Chloride 0.9% 1000 Ml IV 04/10/23 12:18 Infused .Q1H1M STA Infusion Ceftriaxone Sodium/Dextrose 1 g in 50 mls @ 100 mls/hr 04/10/23 11:19 04/10/23 12:16 Rocephin 1 Gm-D5w 50 Ml Bag IV 04/10/23 11:48 Infused STAT STA Infusion Sodium Chloride Confirm 04/10/23 11:41 Sodium Chloride 0.9% 1000 Ml Administered 04/10/23 11:42 Dose 1,000 mls @ ud .ROUTE .STK-MED ONE Ceftriaxone Sodium/Dextrose Confirm 04/10/23 11:42 Rocephin 1 Gm-D5w 50 Ml Bag Administered 04/10/23 11:43 Dose 1 g in 50 mls @ ud IV .STK-MED ONE Lab/Rad Data: Laboratory Result Diagrams 04/10/23 11:35 04/10/23 11:35 Laboratory Results 04/10/23 04/10/23 04/10/23 Range/Units 11:36 11:35 11:35 WBC 12.4 H (4.0-10.5) x10^3/uL RBC 4.38 (4.1-5.6) x10^6/uL Hgb 12.6 (12.5-18.0) g/dL Hct 39.2 L (42-50) % MCV 89.5 (78-100) fL MCH 28.8 (26-32) pg MCHC 32.1 (32-36) g/dL RDW 14.3 H (11.5-14.0) % Plt Count 206 (150-450) x10^3/uL MPV 9.4 (7.5-11.0) fL Gran % 90.1 H (36.0-66.0) % Immature Gran % (Auto) 0.6 H (0.00-0.4) % Nucleat RBC Rel Count 0.0 (0.00-0.1) % Eos # (Auto) 0.01 (0-0.5) x10^3/uL Immature Gran # (Auto) 0.08 H (0.00-0.03) x10^3u/L Absolute Lymphs (auto) 0.23 L (1.0-4.6) x10^3/uL Absolute Monos (auto) 0.87 (0.0-1.3) x10^3/uL Absolute Nucleated RBC 0.00 (0.00-0.01) x10^3u/L Lymphocytes % 1.9 L (24.0-44.0) % Monocytes % 7.0 (0.0-12.0) % Eosinophils % 0.1 (0.00-5.0) % Basophils % 0.3 (0.0-0.4) % Absolute Granulocytes 11.12 H (1.4-6.9) x10^3/uL Basophils # 0.04 (0-0.4) x10^3/uL Sodium 130 L (137-145) mmol/L Potassium 4.3 (3.5-5.1) mmol/L Chloride 96 L (98-107) mmol/L Carbon Dioxide 23 (22-30) mmol/L Anion Gap 14.8 (5-15) MEQ/L BUN 44 H (9-20) mg/dL Creatinine 1.72 H (0.66-1.25) mg/dL Estimated GFR 39.4 ML/MIN Glucose 130 H (74-106) mg/dL Lactic Acid 1.8 (0.4-2.0) Calcium 9.0 (8.4-10.2) mg/dL Total Bilirubin 0.90 (0.2-1.3) mg/dL AST 23 (17-59) U/L ALT 14 (0-50) U/L Alkaline Phosphatase 116 (38-126) U/L Serum Total Protein 7.3 (6.3-8.2) g/dL Albumin 4.0 (3.5-5.0) g/dL Urine Color (Yellow) Urine Appearance (Clear) Urine pH (4.6-8.0) Ur Specific Eck[place] (1.005-1.030) Urine Protein (Negative) Urine Glucose (UA) (Negative) mg/dL Urine Ketones (Negative) Urine Blood (Negative) Urine Nitrite (Negative) Urine Bilirubin (Negative) Urine Urobilinogen (0.2) mg/dL Ur Leukocyte Esterase (Negative) U Hyaline Cast (Auto) (0-2) /LPF Urine Microscopic RBC (0-5) /HPF Urine Microscopic WBC (0-5) /HPF Ur Epithelial Cells (None Seen) /HPF Urine Bacteria (None Seen) /HPF Urine Yeast (Budding) (None Seen) /HPF Urine Culture Reflexed (NO) Slides for Path Review YES 04/10/23 Range/Units 11:20 WBC (4.0-10.5) x10^3/uL RBC (4.1-5.6) x10^6/uL Hgb (12.5-18.0) g/dL Hct (42-50) % MCV (78-100) fL MCH (26-32) pg MCHC (32-36) g/dL RDW (11.5-14.0) % Plt Count (150-450) x10^3/uL MPV (7.5-11.0) fL Gran % (36.0-66.0) % Immature Gran % (Auto) (0.00-0.4) % Nucleat RBC Rel Count (0.00-0.1) % Eos # (Auto) (0-0.5) x10^3/uL Immature Gran # (Auto) (0.00-0.03) x10^3u/L Absolute Lymphs (auto) (1.0-4.6) x10^3/uL Absolute Monos (auto) (0.0-1.3) x10^3/uL Absolute Nucleated RBC (0.00-0.01) x10^3u/L Lymphocytes % (24.0-44.0) % Monocytes % (0.0-12.0) % Eosinophils % (0.00-5.0) % Basophils % (0.0-0.4) % Absolute Granulocytes (1.4-6.9) x10^3/uL Basophils # (0-0.4) x10^3/uL Sodium (137-145) mmol/L Potassium (3.5-5.1) mmol/L Chloride (98-107) mmol/L Carbon Dioxide (22-30) mmol/L Anion Gap (5-15) MEQ/L BUN (9-20) mg/dL Creatinine (0.66-1.25) mg/dL Estimated GFR ML/MIN Glucose (74-106) mg/dL Lactic Acid (0.4-2.0) Calcium (8.4-10.2) mg/dL Total Bilirubin (0.2-1.3) mg/dL AST (17-59) U/L ALT (0-50) U/L Alkaline Phosphatase (38-126) U/L Serum Total Protein (6.3-8.2) g/dL Albumin (3.5-5.0) g/dL Urine Color Red A (Yellow) Urine Appearance Turbid A (Clear) Urine pH 5.0 (4.6-8.0) Ur Specific Eckerman 1.015 (1.005-1.030) Urine Protein 100 A (Negative) Urine Glucose (UA) Negative (Negative) mg/dL Urine Ketones Negative (Negative) Urine Blood Moderate A (Negative) Urine Nitrite Positive A (Negative) Urine Bilirubin Small A (Negative) Urine Urobilinogen 1.0 A (0.2) mg/dL Ur Leukocyte Esterase Large A (Negative) U Hyaline Cast (Auto) NONE SEEN (0-2) /LPF Urine Microscopic RBC >100 A (0-5) /HPF Urine Microscopic WBC 51-100 A (0-5) /HPF Ur Epithelial Cells None Seen (None Seen) /HPF Urine Bacteria Few A (None Seen) /HPF Urine Yeast (Budding) Few A (None Seen) /HPF Urine Culture Reflexed ORDERED SEPARATELY (NO) Slides for Path Review - Progress Progress: improved, re-examined Progress Note: 04/10/23 11:32 This patient's medical issue is 1 of moderate complexity. The level of complexity and the workup performed is based on review of the patient's past medical history, review of the patient's medication list, review of the patient's drug allergy list, history present illness and physical findings on examination. The workup includes placement of intravenous line, infusion of normal saline solution, placement of a Au catheter, urinalysis, CBC, CMP, lactic acid level and infusion of intravenous Rocephin as well as blood culture. 04/10/23 14:44 I reviewed the patient's laboratory results. The patient has a significant urinary tract infection. This is likely the cause of his confusion. I do not think the patient requires a CT scan of his head or any further workup. I spoke with Dr. Portillo our hospitalist and we will place him in observation and provide him with low rate IV fluid, IV antibiotics and treat his fever with Tylenol, provide him with a clear liquid diet and repeat labs in the morning. Discussed with : Yosef Counseled pt/family regarding: lab results, diagnosis Medical Desision Making - Independent Historian Additional History obtained from: Spud Sorter/EMT - Discussion of managment Care discussed with:: hospitalist Reviewed:: Test results (Dr. Portillo), Need for additional workup Agreed on:: place in obs Will see patient: in hospital - Diagnostic Testing Diagnostic test were ordered, analyzed, and reviewed by me: Yes - Risk of complications The pt has a high risk of morbidity or mortality based on: Decision regarding hospitilization or escalation of hosp level of care - Departure Departure Disposition: Observation Clinical Impression: Confusion, UTI (urinary tract infection), Fever Condition: Stable Critical Care Time: No Ref[facility]: [facility] [Primary Care Provider] - Follow up/PCP as directed
[2023-04-10] MEDS ORDERED: Sodium Chloride 0.9% 1000 ML 1,000 ML IV STA (11:18)
[2023-04-10] MEDS ORDERED: ROCEPHIN 1 Gm-D5w 50 ml Bag** 1 G/50 ML IVPB IV STA (11:19)
[2023-04-10] MEDS ORDERED: TYLENOL 325 MG PO ONE (11:23)
[2023-04-10] MEDS ORDERED: TYLENOL 325 MG ONE (11:41)
[2023-04-10] MEDS ORDERED: Sodium Chloride 0.9% 1000 ML 1,000 ML ONE (11:41)
[2023-04-10] MEDS ORDERED: ROCEPHIN 1 Gm-D5w 50 ml Bag** 1 G/50 ML IVPB IV ONE (11:42)
[2023-04-10 11:56] LABS: ADD URINE CULTURE? ORDERED SEPARATELY (NO); Appearance Turbid (Clear); Bacteria Few /HPF (None Seen); Bilirubin Small (Negative); Blood Moderate (Negative); Budding Yeast Few /HPF (None Seen); Epithelial Cells None Seen /HPF (None Seen); Glucose, Urine Negative (Negative); Hyaline Casts NONE SEEN /LPF (0-2); Ketones Negative (Negative); Leukocyte Esterase Large (Negative); Nitrite Positive (Negative); Protein,Urine Dip 100 (Negative); RBC >100 /HPF (0-5); Specific Gravity 1.015 (1.005-1.030); WBC 51-100 /HPF (0-5)
[2023-04-10 12:02] LABS: Absolute Neutrophil Ct (ANC) 11.12 x10^3/uL (1.4-6.9); BASOPHIL % 0.3 % (0.0-0.4); Basophil (Absolute #) 0.04 x10^3/uL (0-0.4); Eosinophil % 0.1 % (0.00-5.0); Eosinophil (Absolute #) 0.01 x10^3/uL (0-0.5); Hematocrit 39.2 % (42-50); Hemoglobin 12.6 g/dL (12.5-18.0); IMMATURE GRAN # 0.08 x10^3u/L (0.00-0.03); IMMATURE GRAN % 0.6 % (0.00-0.4); Lymphocyte (Absolute #) 0.23 x10^3/uL (1.0-4.6); Lymphocytes % 1.9 % (24.0-44.0); Mean Cell Volume 89.5 fL (78-100); Mean Corpuscular Hemoglobin 28.8 pg (26-32); Mean Corpuscular Hgb Concent. 32.1 g/dL (32-36); Mean Platelet Volume 9.4 fL (7.5-11.0); Monocyte (Absolute #) 0.87 x10^3/uL (0.0-1.3); Neutrophil % 90.1 % (36.0-66.0); Platelet Count 206 x10^3/uL (150-450); Red Blood Count 4.38 x10^6/uL (4.1-5.6); Red Cell Distribution Width 14.3 % (11.5-14.0); White Blood Count 12.4 x10^3/uL (4.0-10.5)
[2023-04-10 12:16] LABS: ANION GAP 14.8 MEQ/L (5-15); BILIRUBIN,TOTAL 0.9 mg/dL (0.2-1.3); Creatinine 1 1.72 mg/dL (0.66-1.25); EST GLOMERULAR FILTRATION RATE 39.4 ML/MIN; Potassium 4.3 mmol/L (3.5-5.1); Total Protein 7.3 g/dL (6.3-8.2)
[2023-04-10 14:10] LABS: Slide Review 1 YES
[2023-04-10] MEDS ORDERED: TYLENOL 325 MG PO PRN ×2 (15:13→15:28)
--- NOTE | 2023-04-10 15:25 | PCM.HP ---
History of Present Illness - Chief Complaint Chief Complaint: Confusion Date: 04/10/23 History of Present Illness: is a 83 year old male with PMHX of hypertension, CHF, hyperlipidemia, chronic anemia, diabetes, coronary artery disease, a-fib, pacemaker defibri llator on Eliquis, prostate issues, osteoarthritis, and depression. He brought to the emergency department by the commodities clerk service because of confusion, dysuria, urinary frequency and gross hematuria. It appears as though the patient was started on cefdinir yesterday and he did take a dose this morning. He did have a low grade fever in ER. Tylenol was given. Au catheter placed and the urine was grossly positive for blood and had a foul odor. Labs show DENNIS. LA WNL. He was started on Rocehin and IVF in ER. Will contginue same plan of care. He denies CP, SOB, Abd. pain, N/V/D. - Review of Systems Constitutional: No Fever, No Chills Eyes: No Symptoms Ears, Nose, & Throat: No Symptoms Respiratory: No Cough, No Short Of Breath Cardiac: No Chest Pain, No Edema, No Syncope Abdominal/Gastrointestinal: No Abdominal Pain, No Nausea, No Vomiting, No Diarrhea Genitourinary Symptoms: No Dysuria Musculoskeletal: No Back Pain, No Neck Pain Skin: No Rash Neurological: No Dizziness, No Focal Weakness, No Sensory Changes Psychological: No Symptoms Endocrine: No Symptoms Hematologic/Lymphatic: No Symptoms Immunological/Allergic: No Symptoms Medications & Allergies Home Medications: Home Medication List Venlafaxine HCl ER 75 mg [Effexor XR 75 MG] 225 mg PO DAILY 05/25/13 [History Confirmed 04/10/23] Ferrous Sulfate [Iron] 325 mg PO DAILY 06/01/18 [History Confirmed 04/10/23] Apixaban [Eliquis] 2.5 mg PO BID 09/26/22 [History Confirmed 04/10/23] Cyanocobalamin/Folic Acid [Vitamin S85-Pzkit Acid Tablet] 500 mcg PO DAILY 09/26/22 [History Confirmed 04/10/23] Finasteride 5 mg [Proscar 5 MG] 5 mg PO DAILY 09/26/22 [History Confirmed 04/10/23] Furosemide 20 mg [Lasix 20 mg] 20 mg PO DAILY 09/26/22 [History Confirmed 04/10/23] Metoprolol Tartrate 25 mg [Lopressor 25MG Tab] 12.5 mg PO DAILY 09/26/22 [History Confirmed 04/10/23] Potassium Chloride [Klor-Con M10] 10 meq PO DAILY 09/26/22 [History Confirmed 04/10/23] Acetaminophen 500 mg [Tylenol Extra Strength 500 mg] 500 mg PO Q6HPRN PRN 04/10/23 [History Confirmed 04/10/23] Albuterol Sulfate [Proair Digihaler] 90 mcg IH QIDPRN PRN 04/10/23 [History Confirmed 04/10/23] Bisacodyl 10 mg [Dulcolax 10 MG SUPP] 10 mg RC UD 04/10/23 [History Confirmed 04/10/23] Bisacodyl 5 mg [Dulcolax 5 mg] 5 mg PO DAILY PRN PRN 04/10/23 [History Confirmed 04/10/23] Bupropion HCl Xl 150 mg [Wellbutrin XL 150 MG] 150 mg PO DAILY 04/10/23 [History Confirmed 04/10/23] Cholecalciferol (Vitamin D3) [Vitamin D3] 50 mcg PO DAILY 04/10/23 [History Confirmed 04/10/23] Ciprofloxacin HCl [Cipro] 250 mg PO BID 04/10/23 [History Confirmed 04/10/23] Cyclobenzaprine HCl 5 mg PO TIDPRN 04/10/23 [History Confirmed 04/10/23] Empagliflozin [Jardiance] 10 mg PO DAILY 04/10/23 [History Confirmed 04/10/23] Hydrocodone/Acetaminophen [Hydrocodone-Acetamin 7.5-325] 1 tablet PO QID 04/10/23 [History Confirmed 04/10/23] Megestrol Acetate 625 mg PO DAILY 04/10/23 [History Confirmed 04/10/23] Methenamine Hippurate 1 gm PO BID 04/10/23 [History Confirmed 04/10/23] Polyethylene Glycol 3350 17 gm [Miralax Powder 17GM PACKET] 1 each PO DAILY 04/10/23 [History Confirmed 04/10/23] Sennosides [Vegetable Laxative] 2 tab PO DAILY PRN PRN 04/10/23 [History Confirmed 04/10/23] Sodium Phosphate,[place]-Dibasic [Fleet Enema] 133 ml RC UD 04/10/23 [History Confirmed 04/10/23] Tramadol HCl 50 mg [Ultram 50 mg] 50 mg PO Q6H 04/10/23 [History Confirmed 04/10/23] Zinc Oxide Ointment 30 gm 1 each .ROUTE UD 04/10/23 [History Confirmed 04/10/23] Allergies/Adverse Reactions: Allergies Allergy/AdvReac Type Severity Reaction Status Date / Time fluoxetine HCl [From Prozac] Allergy Verified 04/10/23 11:17 - Past Medical History Past Medical History: Yes Neurological History: No Pertinent History ENT History: Cataracts Cardiac History: Arrhythmia Respiratory History: No Pertinent History Endocrine Medical History: No Pertinent History Musculoskelatal History: No Pertinent History GI Medical History: No Pertinent History History: Other Pyscho-Social History: No Pertinent History Male Reproductive Disorders: Other Comment: 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 PACEMAKER/DEFIBRILLIATOR. B ROSALIE. - Past Surgical History Past Surgical History: Yes Neuro Surgical History: No Pertinent History Cardiac History: Pacemaker Respiratory Surgery: No Pertinent History GI Surgical History: Other Genitourinary Surgical Hx: No Pertinent History Musculskeletal Surgical Hx: Joint Replacement Male Surgical History: No Pertinent History Other Surgical History: kelly hip replacement, bariatic surgery - Social History Smoking Status: Never smoker How long have you smoked: never Exposure to second hand smoke: Yes Alcohol: None Drug Use: none - Physical Exam Vital Signs: Vital Signs - 24 hr Temp Pulse Resp BP BP Pulse Ox 04/10/23 12:30 94 H 20 112/61 04/10/23 10:44 100.9 F 106 H 129/77 99 General Appearance: no apparent distress, alert Neurologic Exam: alert, oriented x 3, cooperative, normal mood/affect, nml cerebellar function, nml station & gait, sensation nml, No motor deficits Eye Exam: PERRL/EOMI, eyes nml inspection Ears, Nose, Throat Exam: normal ENT inspection, TMs normal, pharynx normal, moist mucous membranes Neck Exam: normal inspection, non-tender, supple, full range of motion Respiratory Exam: normal breath sounds, lungs clear, No respiratory distress Cardiovascular Exam: regular rate/rhythm, normal heart sounds, normal peripheral pulses Gastrointestinal/Abdomen Exam: soft, normal bowel sounds, No tenderness, No mass Back Exam: normal inspection, normal range of motion, No CVA tenderness, No vertebral tenderness Extremity Exam: normal inspection, normal range of motion, pelvis stable Skin Exam: normal color, warm, dry, No rash Lymphatic Exam: No adenopathy Results - Labs Lab/Micro Results: Lab Results-Last 24 Hours 04/10/23 04/10/23 04/10/23 Range/Units 11:20 11:35 11:35 WBC 12.4 H (4.0-10.5) x10^3/uL RBC 4.38 (4.1-5.6) x10^6/uL Hgb 12.6 (12.5-18.0) g/dL Hct 39.2 L (42-50) % MCV 89.5 (78-100) fL MCH 28.8 (26-32) pg MCHC 32.1 (32-36) g/dL RDW 14.3 H (11.5-14.0) % Plt Count 206 (150-450) x10^3/uL MPV 9.4 (7.5-11.0) fL Gran % 90.1 H (36.0-66.0) % Immature Gran % (Auto) 0.6 H (0.00-0.4) % Nucleat RBC Rel Count 0.0 (0.00-0.1) % Eos # (Auto) 0.01 (0-0.5) x10^3/uL Immature Gran # (Auto) 0.08 H (0.00-0.03) x10^3u/L Absolute Lymphs (auto) 0.23 L (1.0-4.6) x10^3/uL Absolute Monos (auto) 0.87 (0.0-1.3) x10^3/uL Absolute Nucleated RBC 0.00 (0.00-0.01) x10^3u/L Lymphocytes % 1.9 L (24.0-44.0) % Monocytes % 7.0 (0.0-12.0) % Eosinophils % 0.1 (0.00-5.0) % Basophils % 0.3 (0.0-0.4) % Absolute Granulocytes 11.12 H (1.4-6.9) x10^3/uL Basophils # 0.04 (0-0.4) x10^3/uL Sodium 130 L (137-145) mmol/L Potassium 4.3 (3.5-5.1) mmol/L Chloride 96 L (98-107) mmol/L Carbon Dioxide 23 (22-30) mmol/L Anion Gap 14.8 (5-15) MEQ/L BUN 44 H (9-20) mg/dL Creatinine 1.72 H (0.66-1.25) mg/dL Estimated GFR 39.4 ML/MIN Glucose 130 H (74-106) mg/dL Lactic Acid (0.4-2.0) Calcium 9.0 (8.4-10.2) mg/dL Total Bilirubin 0.90 (0.2-1.3) mg/dL AST 23 (17-59) U/L ALT 14 (0-50) U/L Alkaline Phosphatase 116 (38-126) U/L Serum Total Protein 7.3 (6.3-8.2) g/dL Albumin 4.0 (3.5-5.0) g/dL Urine Color Red A (Yellow) Urine Appearance Turbid A (Clear) Urine pH 5.0 (4.6-8.0) Ur Specific [place] 1.015 (1.005-1.030) Urine Protein 100 A (Negative) Urine Glucose (UA) Negative (Negative) mg/dL Urine Ketones Negative (Negative) Urine Blood Moderate A (Negative) Urine Nitrite Positive A (Negative) Urine Bilirubin Small A (Negative) Urine Urobilinogen 1.0 A (0.2) mg/dL Ur Leukocyte Esterase Large A (Negative) U Hyaline Cast (Auto) NONE SEEN (0-2) /LPF Urine Microscopic RBC >100 A (0-5) /HPF Urine Microscopic WBC 51-100 A (0-5) /HPF Ur Epithelial Cells None Seen (None Seen) /HPF Urine Bacteria Few A (None Seen) /HPF Urine Yeast (Budding) Few A (None Seen) /HPF Urine Culture Reflexed ORDERED SEPARATELY (NO) Slides for Path Review YES 04/10/23 Range/Units 11:36 WBC (4.0-10.5) x10^3/uL RBC (4.1-5.6) x10^6/uL Hgb (12.5-18.0) g/dL Hct (42-50) % MCV (78-100) fL MCH (26-32) pg MCHC (32-36) g/dL RDW (11.5-14.0) % Plt Count (150-450) x10^3/uL MPV (7.5-11.0) fL Gran % (36.0-66.0) % Immature Gran % (Auto) (0.00-0.4) % Nucleat RBC Rel Count (0.00-0.1) % Eos # (Auto) (0-0.5) x10^3/uL Immature Gran # (Auto) (0.00-0.03) x10^3u/L Absolute Lymphs (auto) (1.0-4.6) x10^3/uL Absolute Monos (auto) (0.0-1.3) x10^3/uL Absolute Nucleated RBC (0.00-0.01) x10^3u/L Lymphocytes % (24.0-44.0) % Monocytes % (0.0-12.0) % Eosinophils % (0.00-5.0) % Basophils % (0.0-0.4) % Absolute Granulocytes (1.4-6.9) x10^3/uL Basophils # (0-0.4) x10^3/uL Sodium (137-145) mmol/L Potassium (3.5-5.1) mmol/L Chloride (98-107) mmol/L Carbon Dioxide (22-30) mmol/L Anion Gap (5-15) MEQ/L BUN (9-20) mg/dL Creatinine (0.66-1.25) mg/dL Estimated GFR ML/MIN Glucose (74-106) mg/dL Lactic Acid 1.8 (0.4-2.0) Calcium (8.4-10.2) mg/dL Total Bilirubin (0.2-1.3) mg/dL AST (17-59) U/L ALT (0-50) U/L Alkaline Phosphatase (38-126) U/L Serum Total Protein (6.3-8.2) g/dL Albumin (3.5-5.0) g/dL Urine Color (Yellow) Urine Appearance (Clear) Urine pH (4.6-8.0) Ur Specific [place] (1.005-1.030) Urine Protein (Negative) Urine Glucose (UA) (Negative) mg/dL Urine Ketones (Negative) Urine Blood (Negative) Urine Nitrite (Negative) Urine Bilirubin (Negative) Urine Urobilinogen (0.2) mg/dL Ur Leukocyte Esterase (Negative) U Hyaline Cast (Auto) (0-2) /LPF Urine Microscopic RBC (0-5) /HPF Urine Microscopic WBC (0-5) /HPF Ur Epithelial Cells (None Seen) /HPF Urine Bacteria (None Seen) /HPF Urine Yeast (Budding) (None Seen) /HPF Urine Culture Reflexed (NO) Slides for Path Review Assessment/Plan (1) UTI (urinary tract infection) Current Visit: Yes Status: Acute Assessment & Plan: - hx of BPH - Rocephin gave in ER - continue - IVF - UC and BC x2 pending - Au in place d/t acute urinary retention and confusion Code(s): N39.0 - URINARY TRACT INFECTION, SITE NOT SPECIFIED (2) DENNIS (acute kidney injury) Current Visit: Yes Status: Acute Assessment & Plan: - IVF - creat 1.72, BUN 44, GFR, 39.4 Code(s): N17.9 - ACUTE KIDNEY FAILURE, UNSPECIFIED (3) Confusion Current Visit: Yes Status: Acute Assessment & Plan: - 2:2 UTI and DENNIS - neuro checks q6 - head CT Code(s): R41.0 - DISORIENTATION, UNSPECIFIED (4) Fever Current Visit: Yes Status: Acute Assessment & Plan: - tylenol gave in ER for temp 100.9 - tylenol Q6 prn Code(s): R50.9 - FEVER, UNSPECIFIED (5) Hematuria Current Visit: No Status: Acute Assessment & Plan: - Hold Eliquis - 2:2 UTI - hgb stable at 12.6- trend Code(s): R31.9 - HEMATURIA, UNSPECIFIED (6) Hyponatremia Current Visit: Yes Status: Acute Assessment & Plan: - Mild Na+ 130 - IVF - trend VTE: Eliquis- held d/t hematuria (no recent cardiac procedures)- SCD's PPI: protonix Next of kin: Camilo Lezama [phone] D/C plan: 1-2 days Code status: Full Code(s): E87.1 - HYPO-OSMOLALITY AND HYPONATREMIA
[2023-04-10] MEDS ORDERED: PROTONIX 40 MG IV IV SCH (15:45)
--- NOTE | 2023-04-10 16:04 | XRAY ---
Indication: Confusion. Stroke. Multiple contiguous axial images through the head without contrast. Comparison: June 01, 2018 Progressive age-appropriate global atrophy and moderate periventricular degenerative micro-ischemia bilaterally. Again remote lacunar infarct right basal ganglia. No acute intracranial hemorrhage, abnormal extra-axial fluid collection, or mass effect. Fourth ventricle is midline without hydrocephalus. Bony calvarium intact. New small fluid leveling right maxillary sinus. Remaining paranasal sinuses and mastoid air cells are clear. Impression: Again nonacute senile brain with remote right basal ganglia lacunar infarct. New right maxillary sinus disease.
[2023-04-10] MEDS ORDERED: Zofran 4 MG/2 ML VIAL IV PRN (16:10)
[2023-04-10] MEDS ORDERED: LORAZEPAM 2 MG/ML PO PRN (16:35)
[2023-04-10] MEDS ORDERED: NON-FORMULARY ITEM (Albuterol Sulfate [Proair Digihaler] 90 MCG Aer.Pw.Bas) IH PRN (16:35)
[2023-04-10] MEDS ORDERED: MORPHINE SULFATE 100 MG/5 ML PO PRN (16:35)
[2023-04-10] MEDS ORDERED: SENOKOT 8.6 MG PO PRN (16:35)
[2023-04-10] MEDS ORDERED: DULCOLAX 5 MG PO PRN (16:35)
[2023-04-10] MEDS ORDERED: NON-FORMULARY ITEM (Cyclobenzaprine Hcl [Cyclobenzaprine Hcl] 5 MG Tablet) PO SCH (16:45)
[2023-04-10] MEDS ORDERED: ZINC OXIDE OINTMENT 30 GM TP SCH (16:45)
[2023-04-10] MEDS ORDERED: Dulcolax 10 MG SUPP RC PRN (16:45)
[2023-04-10] MEDS: Sodium Chloride 0.9% 1000 ML 1,000 ML IV SCH (16:47)
[2023-04-10] MEDS ORDERED: Cyclobenzaprine 10 MG PO PRN (16:58)
[2023-04-10] MEDS: NORCO 7.5/325 MG TAB PO SCH ×2 (16:59→22:57)
[2023-04-10] MEDS ORDERED: VENTOLIN COMMON CANISTER IH PRN (17:01)
[2023-04-10] MEDS ORDERED: MEDICATION INTERVENTION MC SCH ×2 (17:15→17:30)
[2023-04-10] MEDS ORDERED: NON-FORMULARY ITEM (Methenamine Hippurate [Methenamine Hippurate] 1 GM Tablet) PO SCH (22:00)
[2023-04-10] MEDS ORDERED: VITAMIN D PO SCH (22:00)
[2023-04-11] MEDS: Sodium Chloride 0.9% 1000 ML 1,000 ML IV SCH (03:58)
[2023-04-11 05:58] LABS: Absolute Neutrophil Ct (ANC) 7.83 x10^3/uL (1.4-6.9); BASOPHIL % 0.2 % (0.0-0.4); Basophil (Absolute #) 0.02 x10^3/uL (0-0.4); Eosinophil % 0.2 % (0.00-5.0); Eosinophil (Absolute #) 0.02 x10^3/uL (0-0.5); Hematocrit 35.2 % (42-50); IMMATURE GRAN # 0.08 x10^3u/L (0.00-0.03); IMMATURE GRAN % 0.9 % (0.00-0.4); Lymphocyte (Absolute #) 0.45 x10^3/uL (1.0-4.6); Mean Cell Volume 90.5 fL (78-100); Mean Corpuscular Hemoglobin 28.3 pg (26-32); Mean Corpuscular Hgb Concent. 31.3 g/dL (32-36); Mean Platelet Volume 9.4 fL (7.5-11.0); Monocyte (Absolute #) 0.58 x10^3/uL (0.0-1.3); Monocytes % 6.5 % (0.0-12.0); Neutrophil % 87.2 % (36.0-66.0); Platelet Count 194 x10^3/uL (150-450); Red Blood Count 3.89 x10^6/uL (4.1-5.6); Red Cell Distribution Width 14.7 % (11.5-14.0)
[2023-04-11 06:14] LABS: Calcium 8.7 mg/dL (8.4-10.2); Creatinine 1 1.61 mg/dL (0.66-1.25); EST GLOMERULAR FILTRATION RATE 42.7 ML/MIN; Potassium 3.8 mmol/L (3.5-5.1)
[2023-04-11 07:01] VITALS: RESP 17
[2023-04-11 08:48] LABS: Slide Review 1 YES
--- NOTE | 2023-04-11 09:21 | PCM.NOTE ---
Date and Time: 04/11/23 0916 Subjective Assessment: 04/10/23 is a 83 year old male with PMHX of hypertension, CHF, hyperlipidemia, chronic anemia, diabetes, coronary artery disease, a-fib, pacemaker defibrillator on Eliquis, prostate issues, osteoarthritis, and depression. He brought to the emergency department by the loan closer service because of c onfusion, dysuria, urinary frequency and gross hematuria. It appears as though the patient was started on cefdinir yesterday and he did take a dose this morning. He did have a low grade fever in ER. Tylenol was given. Au catheter placed and the urine was grossly positive for blood and had a foul odor. Labs show DENNIS. [place] WNL. He was started on Rocehin and IVF in ER. Will continue same plan of care. He denies CP, SOB, Abd. pain, N/V/D. 04/11/23 - Review of Systems Constitutional: No Fever, No Chills Eyes: No Symptoms Ears, Nose, & Throat: No Symptoms Respiratory: No Cough, No Short Of Breath Cardiac: No Chest Pain, No Edema, No Syncope Abdominal/Gastrointestinal: No Abdominal Pain, No Nausea, No Vomiting, No Diarrhea Genitourinary Symptoms: Hematuria, No Dysuria Musculoskeletal: No Back Pain, No Neck Pain Skin: No Rash Neurological: No Dizziness, No Focal Weakness, No Sensory Changes Psychological: No Symptoms Endocrine: No Symptoms Hematologic/Lymphatic: No Symptoms Immunological/Allergic: No Symptoms Objective Exam General Appearance: no apparent distress, alert Neurologic Exam: alert, oriented x 3, cooperative, normal mood/affect, nml cerebellar function, sensation nml, No motor deficits Skin Exam: normal color, warm, dry Eye Exam: PERRL, EOMI, eyes nml inspection Ears, Nose, Throat Exam: normal ENT inspection, pharynx normal, moist mucous membranes Neck Exam: normal inspection, non-tender, supple, full range of motion Respiratory Exam: normal breath sounds, lungs clear, No respiratory distress Cardiovascular Exam: regular rate/rhythm, normal heart sounds Gastrointestinal/Abdomen Exam: soft, No tenderness, No mass Extremity Exam: normal inspection, normal range of motion Back Exam: normal inspection, normal range of motion, No CVA tenderness, No vertebral tenderness Male Genitalia Exam: deferred Rectal Exam: deferred OBJECTIVE DATA Vital Signs: Vital Signs - 24 hr Temp Pulse Resp BP BP Pulse Ox 04/11/23 07:07 99 04/11/23 07:00 97.8 F 73 17 107/62 100 04/11/23 04:00 97.9 F 80 19 101/62 95 04/10/23 23:59 97.6 F 72 19 107/64 95 04/10/23 20:00 97.9 F 68 14 92/58 94 L 04/10/23 15:36 95 04/10/23 15:24 97.5 F 90 94/58 97 04/10/23 12:30 94 H 20 112/61 04/10/23 10:44 100.9 F 106 H 129/77 99 Pain Assessment - Last Documented Pain Intensity 0 Intake and Output: Intake & Output 04/08/23 04/09/23 04/10/23 04/11/23 11:59 11:59 11:59 11:59 Intake Total 2670 Output Total 700 2450 Balance -700 220 Weight 58 kg 52.7 kg Lab Results: Lab Results-Last 24 Hours 04/10/23 04/10/23 04/10/23 Range/Units 11:20 11:35 11:35 WBC 12.4 H (4.0-10.5) x10^3/uL RBC 4.38 (4.1-5.6) x10^6/uL Hgb 12.6 (12.5-18.0) g/dL Hct 39.2 L (42-50) % MCV 89.5 (78-100) fL MCH 28.8 (26-32) pg MCHC 32.1 (32-36) g/dL RDW 14.3 H (11.5-14.0) % Plt Count 206 (150-450) x10^3/uL MPV 9.4 (7.5-11.0) fL Gran % 90.1 H (36.0-66.0) % Immature Gran % (Auto) 0.6 H (0.00-0.4) % Nucleat RBC Rel Count 0.0 (0.00-0.1) % Eos # (Auto) 0.01 (0-0.5) x10^3/uL Immature Gran # (Auto) 0.08 H (0.00-0.03) x10^3u/L Absolute Lymphs (auto) 0.23 L (1.0-4.6) x10^3/uL Absolute Monos (auto) 0.87 (0.0-1.3) x10^3/uL Absolute Nucleated RBC 0.00 (0.00-0.01) x10^3u/L Lymphocytes % 1.9 L (24.0-44.0) % Monocytes % 7.0 (0.0-12.0) % Eosinophils % 0.1 (0.00-5.0) % Basophils % 0.3 (0.0-0.4) % Absolute Granulocytes 11.12 H (1.4-6.9) x10^3/uL Basophils # 0.04 (0-0.4) x10^3/uL Sodium 130 L (137-145) mmol/L Potassium 4.3 (3.5-5.1) mmol/L Chloride 96 L (98-107) mmol/L Carbon Dioxide 23 (22-30) mmol/L Anion Gap 14.8 (5-15) MEQ/L BUN 44 H (9-20) mg/dL Creatinine 1.72 H (0.66-1.25) mg/dL Estimated GFR 39.4 ML/MIN Glucose 130 H (74-106) mg/dL Lactic Acid (0.4-2.0) Calcium 9.0 (8.4-10.2) mg/dL Total Bilirubin 0.90 (0.2-1.3) mg/dL AST 23 (17-59) U/L ALT 14 (0-50) U/L Alkaline Phosphatase 116 (38-126) U/L NT-Pro-B Natriuret Pep (<300) pg/mL Serum Total Protein 7.3 (6.3-8.2) g/dL Albumin 4.0 (3.5-5.0) g/dL Urine Color Red A (Yellow) Urine Appearance Turbid A (Clear) Urine pH 5.0 (4.6-8.0) Ur Specific [place] 1.015 (1.005-1.030) Urine Protein 100 A (Negative) Urine Glucose (UA) Negative (Negative) mg/dL Urine Ketones Negative (Negative) Urine Blood Moderate A (Negative) Urine Nitrite Positive A (Negative) Urine Bilirubin Small A (Negative) Urine Urobilinogen 1.0 A (0.2) mg/dL Ur Leukocyte Esterase Large A (Negative) U Hyaline Cast (Auto) NONE SEEN (0-2) /LPF Urine Microscopic RBC >100 A (0-5) /HPF Urine Microscopic WBC 51-100 A (0-5) /HPF Ur Epithelial Cells None Seen (None Seen) /HPF Urine Bacteria Few A (None Seen) /HPF Urine Yeast (Budding) Few A (None Seen) /HPF Urine Culture Reflexed ORDERED SEPARATELY (NO) Slides for Path Review YES 04/10/23 04/11/23 04/11/23 Range/Units 11:36 05:30 05:30 WBC 9.0 (4.0-10.5) x10^3/uL RBC 3.89 L (4.1-5.6) x10^6/uL Hgb 11.0 L (12.5-18.0) g/dL Hct 35.2 L (42-50) % MCV 90.5 (78-100) fL MCH 28.3 (26-32) pg MCHC 31.3 L (32-36) g/dL RDW 14.7 H (11.5-14.0) % Plt Count 194 (150-450) x10^3/uL MPV 9.4 (7.5-11.0) fL Gran % 87.2 H (36.0-66.0) % Immature Gran % (Auto) 0.9 H (0.00-0.4) % Nucleat RBC Rel Count 0.0 (0.00-0.1) % Eos # (Auto) 0.02 (0-0.5) x10^3/uL Immature Gran # (Auto) 0.08 H (0.00-0.03) x10^3u/L Absolute Lymphs (auto) 0.45 L (1.0-4.6) x10^3/uL Absolute Monos (auto) 0.58 (0.0-1.3) x10^3/uL Absolute Nucleated RBC 0.00 (0.00-0.01) x10^3u/L Lymphocytes % 5.0 L (24.0-44.0) % Monocytes % 6.5 (0.0-12.0) % Eosinophils % 0.2 (0.00-5.0) % Basophils % 0.2 (0.0-0.4) % Absolute Granulocytes 7.83 H (1.4-6.9) x10^3/uL Basophils # 0.02 (0-0.4) x10^3/uL Sodium 132 L (137-145) mmol/L Potassium 3.8 (3.5-5.1) mmol/L Chloride 103 (98-107) mmol/L Carbon Dioxide 24 (22-30) mmol/L Anion Gap 9.0 (5-15) MEQ/L BUN 33 H (9-20) mg/dL Creatinine 1.61 H (0.66-1.25) mg/dL Estimated GFR 42.7 ML/MIN Glucose 104 (74-106) mg/dL Lactic Acid 1.8 (0.4-2.0) Calcium 8.7 (8.4-10.2) mg/dL Total Bilirubin (0.2-1.3) mg/dL AST (17-59) U/L ALT (0-50) U/L Alkaline Phosphatase (38-126) U/L NT-Pro-B Natriuret Pep 3180 (<300) pg/mL Serum Total Protein (6.3-8.2) g/dL Albumin (3.5-5.0) g/dL Urine Color (Yellow) Urine Appearance (Clear) Urine pH (4.6-8.0) Ur Specific [place] (1.005-1.030) Urine Protein (Negative) Urine Glucose (UA) (Negative) mg/dL Urine Ketones (Negative) Urine Blood (Negative) Urine Nitrite (Negative) Urine Bilirubin (Negative) Urine Urobilinogen (0.2) mg/dL Ur Leukocyte Esterase (Negative) U Hyaline Cast (Auto) (0-2) /LPF Urine Microscopic RBC (0-5) /HPF Urine Microscopic WBC (0-5) /HPF Ur Epithelial Cells (None Seen) /HPF Urine Bacteria (None Seen) /HPF Urine Yeast (Budding) (None Seen) /HPF Urine Culture Reflexed (NO) Slides for Path Review YES Radiology Exams: Radiology Procedures Category Date Time Status ABDOMEN AND PELVIS W/0 CONTRAS [CT] Stat Exams 04/11/23 08:14 Taken HEAD WITHOUT CONTRAST [CT] Stat Exams 04/10/23 15:27 Completed Assessment/Plan (1) UTI (urinary tract infection) Current Visit: Yes Status: Acute Code(s): N39.0 - URINARY TRACT INFECTION, SITE NOT SPECIFIED (2) DENNIS (acute kidney injury) Current Visit: Yes Status: Acute Code(s): N17.9 - ACUTE KIDNEY FAILURE, UNSPECIFIED (3) Confusion Current Visit: Yes Status: Acute Code(s): R41.0 - DISORIENTATION, UNSPECIFIED (4) Fever Current Visit: Yes Status: Acute Code(s): R50.9 - FEVER, UNSPECIFIED (5) Hematuria Current Visit: No Status: Acute Code(s): R31.9 - HEMATURIA, UNSPECIFIED (6) Hyponatremia Current Visit: Yes Status: Acute Assessment & Plan: (1) UTI (urinary tract infection) Current Visit: Yes Status: Acute Assessment & Plan: - hx of BPH - Rocephin gave in ER - continue - IVF - UC and BC x2 pending - Au in place d/t acute urinary retention and confusion Code(s): N39.0 - URINARY TRACT INFECTION, SITE NOT SPECIFIED (2) DENNIS (acute kidney injury) Current Visit: Yes Status: Acute Assessment & Plan: - IVF - creat 1.72, BUN 44, GFR, 39.4 04/11 - labs improving- trend Code(s): N17.9 - ACUTE KIDNEY FAILURE, UNSPECIFIED (3) Confusion Current Visit: Yes Status: Acute Assessment & Plan: - 2:2 UTI and DENNIS - neuro checks q6 - Head CT negative for acute process 04/11 - resolved Code(s): R41.0 - DISORIENTATION, UNSPECIFIED (4) Fever Current Visit: Yes Status: Acute Assessment & Plan: - tylenol gave in ER for temp 100.9 - tylenol Q6 prn 04/11 - no fever overnight Code(s): R50.9 - FEVER, UNSPECIFIED (5) Hematuria Current Visit: No Status: Acute Assessment & Plan: - Hold Eliquis - 2:2 UTI - hgb stable at 12.6- trend 04/11 - Hgb stable 11.0 - Start CBI - CT abd. pelvis- pending Code(s): R31.9 - HEMATURIA, UNSPECIFIED (6) Hyponatremia Current Visit: Yes Status: Acute Assessment & Plan: - Mild Na+ 130 - IVF - trend 04/11 - improving Na+ 130- trend VTE: Eliquis- held d/t hematuria (no recent cardiac procedures)- SCD's PPI: protonix Next of kin: Camilo Lezama [phone] D/C plan: 1-2 days Code status: Full Code(s): E87.1 - HYPO-OSMOLALITY AND HYPONATREMIA Code(s): E87.1 - HYPO-OSMOLALITY AND HYPONATREMIA
[2023-04-11] MEDS ORDERED: Klor Con PO SCH (10:00)
[2023-04-11] MEDS ORDERED: FOLIC ACID PO SCH (10:00)
[2023-04-11] MEDS ORDERED: [UNRECOGNIZED DRUG - OTHER] PO SCH (10:00)
[2023-04-11] MEDS ORDERED: NON-FORMULARY ITEM (Cholecalciferol (Vitamin D3) [Vitamin D3] 50 MCG Capsule) PO SCH (10:00)
[2023-04-11] MEDS ORDERED: FEOSOL 325 MG PO SCH (10:00)
[2023-04-11] MEDS ORDERED: Miralax Powder 17GM PACKET PO SCH (10:00)
[2023-04-11] MEDS ORDERED: NON-FORMULARY ITEM (Potassium Chloride [Klor-Con M10] 10 MEQ Tab.Er.Prt) PO SCH (10:00)
[2023-04-11] MEDS ORDERED: MEGESTROL ACETATE PO SCH (10:00)
[2023-04-11] MEDS ORDERED: Lopressor 25MG Tab PO SCH (10:00)
[2023-04-11] MEDS ORDERED: Proscar 5 MG PO SCH (10:00)
[2023-04-11] MEDS ORDERED: Effexor XR 75 MG PO SCH (10:00)
[2023-04-11] MEDS ORDERED: ROCEPHIN 1 Gm-D5w 50 ml Bag** 1 G/50 ML IVPB IV SCH (10:00)
[2023-04-11] MEDS ORDERED: Wellbutrin XL 150 MG PO SCH (10:00)
[2023-04-11] MEDS ORDERED: CYANOCOBALAMIN PO SCH (10:00)
[2023-04-11] MEDS ORDERED: VITAMIN D PO SCH (10:00)
[2023-04-11] MEDS ORDERED: JARDIANCE PO SCH (10:00)
[2023-04-11] MEDS ORDERED: LASIX 20 MG PO SCH (10:00)
[2023-04-11] MEDS ORDERED: Megace Susp PO SCH (10:00)
[2023-04-11] MEDS: NORCO 7.5/325 MG TAB PO SCH ×2 (10:22→12:14)
--- NOTE | 2023-04-11 10:23 | XRAY ---
CLINICAL HISTORY:hematuria COMPARISON:04/28/2019. TECHNIQUE:Direct contiguous axial CT images were acquired through the abdomen and pelvis without contrast using soft tissue and bone algorithms. Reformatted images were performed. FINDINGS: Limitations: Lack of intravenous contrast limits evaluation of solid viscera. Bilateral hip replacement seen producing significant streak artifacts significantly obscuring details of the lower pelvis. Kidneys: Moderate hydro ureter noted on the left side along with mild hydronephrosis, the distal left ureter is obscured by the streak artifacts of hip replacements, the possibility of obstructing calculus needs to be excluded, would recommend sonography for further evaluation. Mild left perinephric fat stranding noted. Grossly unremarkable renal size, contour, and density. Tiny faint calcific foci seen in the left lower pole calyx. Liver: Unremarkable size and contour. No evidence of mass. No evidence of dilated ducts. Gallbladder: Gallbladder is distended. No pericholecystic fluid was identified. Spleen: Grossly unremarkable. Pancreas: Grossly unremarkable. Adrenal glands: Grossly unremarkable in size, contour, and density. Retroperitoneum: No retroperitoneal lymphadenopathy. Unremarkable abdominal aorta. Peritoneal cavity: No evidence of free air or ascites. Gastrointestinal tract: Nondistended small bowel and colon. No evidence of obstruction. Post-surgical changes are seen in the stomach and the left-sided small bowel needs clinical correlation. Mild hiatus hernia. Appendix: Unremarkable. Pelvis: can not be properly seen due to artifacts. The bladder is empty and catheterized. Lung bases: Fine thin atelectasis noted in both lung bases. Osseous structures: Bilateral hip replacement seen without evidence of a break or loosening on the left side while on the right side lateral side, multiple small radiodense areas could be due to loosening needs clinical and lab correlation. Moderate spondylotic changes are noted in the spine with scoliosis and convexity toward the right side and Carvalho angle measures 21. IMPRESSION: 1. Moderate hydro ureter noted on the left side along with mild hydronephrosis, distal left ureter is obscured by the streak artifacts of hip replacements, possibility of obstructing calculus needs to be excluded, would recommend sonography for further evaluation. 2. Mild left perinephric edema is noted. 3. Bilateral hip replacement with suspected prosthetic loosening on the right side. 4. Mild hiatus hernia. 5. Moderate spondylotic changes in the spine with mild scoliosis. [facility] ER was called at at 09:14 AM [facility], 04/11/2023 and results were verbally communicated to Elodia Castro. Electronically Signed by: Miracle Mccain MD. (04/11/2023 10:18:50 EST)
--- NOTE | 2023-04-11 11:24 | PCM.DS ---
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 He brought to the emergency department by the spa director service because of confusion, dysuria, urinary frequency and gross hematuria. It appears as though the patient was started on cefdinir yesterday and he did take a dose this morning. He did have a low grade fever in ER. Tylenol was given. Au catheter placed and the urine was grossly positive for blood and had a foul odor. Labs show DENNIS. LA WNL. He was started on Rocehin and IVF in ER. Will continue same plan of care. He denies CP, SOB, Abd. pain, N/V/D. 04/11/23 Pt resting in bed. He continues to have suhail hematuria with clots, CBI started. Hgb is stable. CT abd today shows; Moderate hydro ureter noted on the left side along with mild hydronephrosis, distal left ureter is obscured by the streak artifacts of hip replacements, possibility of obstructing calculus needs to be excluded, would recommend sonography for further evaluation. Mild left perinephric edema is noted. We do not have US here on the weekends. We also do not have a urologist. Pt needs to be tx to higher level care for further evaluation. [facility] is willing to accept pt and will tx today. Report called to Dr. Hess and is accepting physician. - Vitals & Intake/Output Vital Signs: Vital Signs Temperature 97.8 F 04/11/23 07:00 Pulse Rate 80 04/11/23 09:30 Respiratory Rate 17 04/11/23 07:00 Blood Pressure 109/63 04/11/23 09:30 O2 Sat by Pulse Oximetry 99 04/11/23 07:07 Intake & Output: Intake & Output 04/08/23 04/09/23 04/10/2304/11/24 11:59 11:59 11:59 11:59 Intake Total 3370 Output Total 700 0610 Balance -700 -180 Weight 58 kg 52.7 kg - Lab Result Diagrams: 04/11/23 05:30 04/11/23 05:30 Lab Results-Last 24 Hrs: Lab Results-Last 24 Hours 04/10/23 04/10/23 04/10/23 Range/Units 11:20 11:35 11:35 WBC 12.4 H (4.0-10.5) x10^3/uL RBC 4.38 (4.1-5.6) x10^6/uL Hgb 12.6 (12.5-18.0) g/dL Hct 39.2 L (42-50) % MCV 89.5 (78-100) fL MCH 28.8 (26-32) pg MCHC 32.1 (32-36) g/dL RDW 14.3 H (11.5-14.0) % Plt Count 206 (150-450) x10^3/uL MPV 9.4 (7.5-11.0) fL Gran % 90.1 H (36.0-66.0) % Immature Gran % (Auto) 0.6 H (0.00-0.4) % Nucleat RBC Rel Count 0.0 (0.00-0.1) % Eos # (Auto) 0.01 (0-0.5) x10^3/uL Immature Gran # (Auto) 0.08 H (0.00-0.03) x10^3u/L Absolute Lymphs (auto) 0.23 L (1.0-4.6) x10^3/uL Absolute Monos (auto) 0.87 (0.0-1.3) x10^3/uL Absolute Nucleated RBC 0.00 (0.00-0.01) x10^3u/L Lymphocytes % 1.9 L (24.0-44.0) % Monocytes % 7.0 (0.0-12.0) % Eosinophils % 0.1 (0.00-5.0) % Basophils % 0.3 (0.0-0.4) % Absolute Granulocytes 11.12 H (1.4-6.9) x10^3/uL Basophils # 0.04 (0-0.4) x10^3/uL Sodium 130 L (137-145) mmol/L Potassium 4.3 (3.5-5.1) mmol/L Chloride 96 L (98-107) mmol/L Carbon Dioxide 23 (22-30) mmol/L Anion Gap 14.8 (5-15) MEQ/L BUN 44 H (9-20) mg/dL Creatinine 1.72 H (0.66-1.25) mg/dL Estimated GFR 39.4 ML/MIN Glucose 130 H (74-106) mg/dL Lactic Acid (0.4-2.0) Calcium 9.0 (8.4-10.2) mg/dL Total Bilirubin 0.90 (0.2-1.3) mg/dL AST 23 (17-59) U/L ALT 14 (0-50) U/L Alkaline Phosphatase 116 (38-126) U/L NT-Pro-B Natriuret Pep (<300) pg/mL Serum Total Protein 7.3 (6.3-8.2) g/dL Albumin 4.0 (3.5-5.0) g/dL Urine Color Red A (Yellow) Urine Appearance Turbid A (Clear) Urine pH 5.0 (4.6-8.0) Ur Specific Reading 1.015 (1.005-1.030) Urine Protein 100 A (Negative) Urine Glucose (UA) Negative (Negative) mg/dL Urine Ketones Negative (Negative) Urine Blood Moderate A (Negative) Urine Nitrite Positive A (Negative) Urine Bilirubin Small A (Negative) Urine Urobilinogen 1.0 A (0.2) mg/dL Ur Leukocyte Esterase Large A (Negative) U Hyaline Cast (Auto) NONE SEEN (0-2) /LPF Urine Microscopic RBC >100 A (0-5) /HPF Urine Microscopic WBC 51-100 A (0-5) /HPF Ur Epithelial Cells None Seen (None Seen) /HPF Urine Bacteria Few A (None Seen) /HPF Urine Yeast (Budding) Few A (None Seen) /HPF Urine Culture Reflexed ORDERED SEPARATELY (NO) Slides for Path Review YES 04/10/23 04/11/23 04/11/23 Range/Units 11:36 05:30 05:30 WBC 9.0 (4.0-10.5) x10^3/uL RBC 3.89 L (4.1-5.6) x10^6/uL Hgb 11.0 L (12.5-18.0) g/dL Hct 35.2 L (42-50) % MCV 90.5 (78-100) fL MCH 28.3 (26-32) pg MCHC 31.3 L (32-36) g/dL RDW 14.7 H (11.5-14.0) % Plt Count 194 (150-450) x10^3/uL MPV 9.4 (7.5-11.0) fL Gran % 87.2 H (36.0-66.0) % Immature Gran % (Auto) 0.9 H (0.00-0.4) % Nucleat RBC Rel Count 0.0 (0.00-0.1) % Eos # (Auto) 0.02 (0-0.5) x10^3/uL Immature Gran # (Auto) 0.08 H (0.00-0.03) x10^3u/L Absolute Lymphs (auto) 0.45 L (1.0-4.6) x10^3/uL Absolute Monos (auto) 0.58 (0.0-1.3) x10^3/uL Absolute Nucleated RBC 0.00 (0.00-0.01) x10^3u/L Lymphocytes % 5.0 L (24.0-44.0) % Monocytes % 6.5 (0.0-12.0) % Eosinophils % 0.2 (0.00-5.0) % Basophils % 0.2 (0.0-0.4) % Absolute Granulocytes 7.83 H (1.4-6.9) x10^3/uL Basophils # 0.02 (0-0.4) x10^3/uL Sodium 132 L (137-145) mmol/L Potassium 3.8 (3.5-5.1) mmol/L Chloride 103 (98-107) mmol/L Carbon Dioxide 24 (22-30) mmol/L Anion Gap 9.0 (5-15) MEQ/L BUN 33 H (9-20) mg/dL Creatinine 1.61 H (0.66-1.25) mg/dL Estimated GFR 42.7 ML/MIN Glucose 104 (74-106) mg/dL Lactic Acid 1.8 (0.4-2.0) Calcium 8.7 (8.4-10.2) mg/dL Total Bilirubin (0.2-1.3) mg/dL AST (17-59) U/L ALT (0-50) U/L Alkaline Phosphatase (38-126) U/L NT-Pro-B Natriuret Pep 3180 (<300) pg/mL Serum Total Protein (6.3-8.2) g/dL Albumin (3.5-5.0) g/dL Urine Color (Yellow) Urine Appearance (Clear) Urine pH (4.6-8.0) Ur Specific Reading (1.005-1.030) Urine Protein (Negative) Urine Glucose (UA) (Negative) mg/dL Urine Ketones (Negative) Urine Blood (Negative) Urine Nitrite (Negative) Urine Bilirubin (Negative) Urine Urobilinogen (0.2) mg/dL Ur Leukocyte Esterase (Negative) U Hyaline Cast (Auto) (0-2) /LPF Urine Microscopic RBC (0-5) /HPF Urine Microscopic WBC (0-5) /HPF Ur Epithelial Cells (None Seen) /HPF Urine Bacteria (None Seen) /HPF Urine Yeast (Budding) (None Seen) /HPF Urine Culture Reflexed (NO) Slides for Path Review YES Micro Results-Entire Visit: Microbiology 04/10/23 11:20 Urine Culture - Preliminary Catherized NO GROWTH TO DATE - Radiology Exams Ordered Rad Exams-Entire Visit: Radiology Procedures Category Date Time Status ABDOMEN AND PELVIS W/0 CONTRAS [CT] Stat Exams 04/11/23 08:14 Completed HEAD WITHOUT CONTRAST [CT] Stat Exams 04/10/23 15:27 Completed - Procedures and Test Procedures and Tests throughout Hospitalization: Therapy Orders & Screens 04/10/23 17:02 Oxygen Nasal Cannula 2 lpm Comment: Diagnosis: Confusion Discharge Exam General Appearance: no apparent distress, alert Neurologic Exam: alert, oriented x 3, cooperative, normal mood/affect, nml cerebellar function, sensation nml, No motor deficits Eye Exam: PERRL, EOMI, eyes nml inspection Ears, Nose, Throat Exam: normal ENT inspection, pharynx normal, moist mucous membranes Neck Exam: normal inspection, non-tender, supple, full range of motion Respiratory Exam: normal breath sounds, lungs clear, No respiratory distress Cardiovascular Exam: regular rate/rhythm, normal heart sounds Gastrointestinal/Abdomen Exam: soft, No tenderness, No mass Male Genitalia Exam: deferred, other (hematuria) Rectal Exam: deferred Back Exam: normal inspection, normal range of motion, No CVA tenderness, No vertebral tenderness Extremity Exam: normal inspection, normal range of motion Skin Exam: normal color, warm, dry Final Diagnosis/Problem List - Final Discharge Diagnosis/Problem (1) UTI (urinary tract infection) Current Visit: Yes Status: Acute Code(s): N39.0 - URINARY TRACT INFECTION, SITE NOT SPECIFIED (2) DENNIS (acute kidney injury) Current Visit: Yes Status: Acute Code(s): N17.9 - ACUTE KIDNEY FAILURE, UNSPECIFIED (3) Confusion Current Visit: Yes Status: Acute Code(s): R41.0 - DISORIENTATION, UNSPECIFIED (4) Fever Current Visit: Yes Status: Acute Code(s): R50.9 - FEVER, UNSPECIFIED (5) Hematuria Current Visit: No Status: Acute Code(s): R31.9 - HEMATURIA, UNSPECIFIED (6) Hyponatremia Current Visit: Yes Status: Acute Assessment & Plan: (1) UTI (urinary tract infection) Current Visit: Yes Status: Acute Assessment & Plan: - hx of BPH - Rocephin gave in ER - continue - IVF - UC and BC x2 pending - Au in place d/t acute urinary retention and confusion Code(s): N39.0 - URINARY TRACT INFECTION, SITE NOT SPECIFIED (2) DENNIS (acute kidney injury) Current Visit: Yes Status: Acute Assessment & Plan: - IVF - creat 1.72, BUN 44, GFR, 39.4 04/11 - labs improving- trend Code(s): N17.9 - ACUTE KIDNEY FAILURE, UNSPECIFIED (3) Confusion Current Visit: Yes Status: Acute Assessment & Plan: - 2:2 UTI and DENNIS - neuro checks q6 - Head CT negative for acute process 04/11 - resolved Code(s): R41.0 - DISORIENTATION, UNSPECIFIED (4) Fever Current Visit: Yes Status: Acute Assessment & Plan: - tylenol gave in ER for temp 100.9 - tylenol Q6 prn 04/11 - no fever overnight Code(s): R50.9 - FEVER, UNSPECIFIED (5) Hematuria Current Visit: No Status: Acute Assessment & Plan: - Hold Eliquis - 2:2 UTI - hgb stable at 12.6- trend 04/11 - Hgb stable 11.0 - Start CBI due to continued hematuria with clots - CT abd. pelvis 04/11 IMPRESSION: 1. Moderate hydro ureter noted on the left side along with mild hydronephrosis, distal left ureter is obscured by the streak artifacts of hip replacements, possibility of obstructing calculus needs to be excluded, would recommend sonography for further evaluation. 2. Mild left perinephric edema is noted. 3. Bilateral hip replacement with suspected prosthetic loosening on the right side. 4. Mild hiatus hernia. 5. Moderate spondylotic changes in the spine with mild scoliosis - Tx to higher level of care - needs further eval with US- we do not have this on the weekends - Needs urology eval Code(s): R31.9 - HEMATURIA, UNSPECIFIED (6) Hyponatremia Current Visit: Yes Status: Acute Assessment & Plan: - Mild Na+ 130 - IVF - trend 04/11 - improving Na+ 132- trend Code(s): E87.1 - HYPO-OSMOLALITY AND HYPONATREMIA - Discharge Discharge Date: 04/11/23 Disposition: Home, Self-Care Condition: Stable Prescriptions: Continue Venlafaxine HCl ER 75 mg [Effexor XR 75 MG] 225 mg PO DAILY Ferrous Sulfate [Iron] 325 mg PO DAILY Potassium Chloride [Klor-Con M10] 10 meq PO DAILY Metoprolol Tartrate 25 mg [Lopressor 25MG Tab] 12.5 mg PO DAILY Furosemide 20 mg [Lasix 20 mg] 20 mg PO DAILY Finasteride 5 mg [Proscar 5 MG] 5 mg PO DAILY Apixaban [Eliquis] 2.5 mg PO BID Cyanocobalamin/Folic Acid [Vitamin W11-Pmqxg Acid Tablet] 500 mcg PO DAILY Bupropion HCl Xl 150 mg [Wellbutrin XL 150 MG] 150 mg PO DAILY Cholecalciferol (Vitamin D3) [Vitamin D3] 50 mcg PO DAILY Tramadol HCl 50 mg [Ultram 50 mg] 50 mg PO Q6H Sennosides [Vegetable Laxative] 2 tab PO DAILY PRN PRN PRN Reason: Constipation Polyethylene Glycol 3350 17 gm [Miralax Powder 17GM PACKET] 1 each PO DAILY Methenamine Hippurate 1 gm PO BID Megestrol Acetate 625 mg PO DAILY Empagliflozin [Jardiance] 10 mg PO DAILY Hydrocodone/Acetaminophen [Hydrocodone-Acetamin 7.5-325] 1 tablet PO QID Sodium Phosphate,[place]-Dibasic [Fleet Enema] 133 ml RC UD Cyclobenzaprine HCl 5 mg PO TIDPRN Ciprofloxacin HCl [Cipro] 250 mg PO BID Bisacodyl 5 mg [Dulcolax 5 mg] 5 mg PO DAILY PRN PRN PRN Reason: Constipation Bisacodyl 10 mg [Dulcolax 10 MG SUPP] 10 mg RC UD Albuterol Sulfate [Proair Digihaler] 90 mcg IH QIDPRN PRN PRN Reason: Shortness Of Breath Zinc Oxide Ointment 30 gm 1 each .ROUTE UD Acetaminophen 500 mg [Tylenol Extra Strength 500 mg] 500 mg PO Q6HPRN PRN PRN Reason: Pain LORazepam [Lorazepam Intensol] 0.5 ml PO Q4HPRN PRN PRN Reason: Anxiety Morphine Sulfate 0.5 ml PO Q4H PRN PRN PRN Reason: Pain Follow up with: PETER RÍOS HEDLEY [Primary Care Provider] -
[2023-04-11 11:46] VITALS: BP 99/59; PULSE 77; TEMP 98.7; O2SAT 98
== END 2023-04-11 15:07 | disposition home or self-care (01) ==
LOC: ED 10:41 → MED SURG 15:01
PROVIDERS: ADMIT Internal Medicine; ATTEND Internal Medicine
DX: N39.0 Urinary tract infection, site not specified (principal); N17.9 Acute kidney failure, unspecified; R50.9 Fever, unspecified; R41.0 Disorientation, unspecified; R31.9 Hematuria, unspecified; E87.1 Hypo-osmolality and hyponatremia; I11.0 Hypertensive heart disease with heart failure; I50.9 Heart failure, unspecified; E78.5 Hyperlipidemia, unspecified; D64.9 Anemia, unspecified; E11.9 Type 2 diabetes mellitus without complications; I25.10 Atherosclerotic heart disease of native coronary artery without angina pectoris; I48.91 Unspecified atrial fibrillation; Z79.01 Long term (current) use of anticoagulants; Z79.899 Other long term (current) drug therapy; Z20.828 Contact with and (suspected) exposure to other viral communicable diseases
CPT/HCPCS: 36000; 36415; 51702; 70450; 74176; 80048; 80053; 81001; 83605; 83880; 85025; 87040; 87086; 93268; 94762; 99285; G0378; Q3014; J0696; A9270-GY

== ENCOUNTER 2023-05-03 16:59 | Emergency (ER) | payer MEDICARE ==
[2023-05-03 17:35] VITALS: RESP 20; TEMP 98.7
--- NOTE | 2023-05-03 17:44 | ERPHSYRPT ---
- History of Present Illness Time Seen by Provider: 05/03/23 17:38 Source: patient, family Patient Subjective Stated Complaint: PT states "I have urinary problems and I self cath and I have not been able to get anything out since this morning. Dr. Toledo is trying to get me into a urologist in [facility]." Triage Nursing Assessment: PT presented alert and oriented X 3, skin pwd. pt ambulates with assistance, pt weak and smells strongly of urine. Physician History: Patient states "I have urinary problems and I self cath and I have not been able to get anything out since this morning. Dr. Toledo is trying to get me into a urologist in [facility]." Patient is 83-year-old male with significant past medical history of prostatic hyperplasia history of prostate cancer chronic urinary incontinence started having a trouble passing any urine. Patient has been self catheterizing him for few months today he tried multiple times but unable to pass it through and unable to get any urine output so he came to the emergency room with his . He denies any other symptoms. Timing/Duration: today Associated Symptoms: denies symptoms Allergies/Adverse Reactions: fluoxetine HCl [From Mine] Allergy (Verified 04/10/23 11:17) Home Medications: Venlafaxine HCl ER 75 mg [Effexor XR 75 MG] 225 mg PO DAILY 05/25/13 [History] Ferrous Sulfate [Iron] 325 mg PO DAILY 06/01/18 [History] Apixaban [Eliquis] 2.5 mg PO BID 09/26/22 [History] Cyanocobalamin/Folic Acid [Vitamin Z70-Redyo Acid Tablet] 500 mcg PO DAILY 09/26/22 [History] Finasteride 5 mg [Proscar 5 MG] 5 mg PO DAILY 09/26/22 [History] Furosemide 20 mg [Lasix 20 mg] 20 mg PO DAILY 09/26/22 [History] Metoprolol Tartrate 25 mg [Lopressor 25MG Tab] 12.5 mg PO DAILY 09/26/22 [History] Potassium Chloride [Klor-Con M10] 10 meq PO DAILY 09/26/22 [History] Acetaminophen 500 mg [Tylenol Extra Strength 500 mg] 500 mg PO Q6HPRN PRN 04/10/23 [History] Albuterol Sulfate [Proair Digihaler] 90 mcg IH QIDPRN PRN 04/10/23 [History] Bisacodyl 10 mg [Dulcolax 10 MG SUPP] 10 mg [facility] 04/10/23 [History] Bisacodyl 5 mg [Dulcolax 5 mg] 5 mg PO DAILY PRN PRN 04/10/23 [History] Bupropion HCl Xl 150 mg [Wellbutrin XL 150 MG] 150 mg PO DAILY 04/10/23 [History] Cholecalciferol (Vitamin D3) [Vitamin D3] 50 mcg PO DAILY 04/10/23 [History] Cyclobenzaprine HCl 5 mg PO TIDPRN 04/10/23 [History] Empagliflozin [Jardiance] 10 mg PO DAILY 04/10/23 [History] Hydrocodone/Acetaminophen [Hydrocodone-Acetamin 7.5-325] 1 tablet PO QID 04/10/23 [History] LORazepam [Lorazepam Intensol] 0.5 ml PO Q4HPRN PRN 04/10/23 [History] Megestrol Acetate 625 mg PO DAILY 04/10/23 [History] Methenamine Hippurate 1 gm PO BID 04/10/23 [History] Morphine Sulfate 0.5 ml PO Q4H PRN PRN 04/10/23 [History] Polyethylene Glycol 3350 17 gm [Miralax Powder 17GM PACKET] 1 each PO DAILY 04/10/23 [History] Sennosides [Vegetable Laxative] 2 tab PO DAILY PRN PRN 04/10/23 [History] Sodium Phosphate,[place]-Dibasic [Fleet Enema] 133 ml [facility] 04/10/23 [History] Tramadol HCl 50 mg [Ultram 50 mg] 50 mg PO Q6H 04/10/23 [History] Zinc Oxide Ointment 30 gm 1 each .ROUTE 04/10/23 [History] Hx Tetanus, Diphtheria Vaccination/Date Given: No Hx Influenza Vaccination/Date Given: Yes Hx Pneumococcal Vaccination/Date Given: Yes Immunizations Up to Date: No Travel Risk - International Travel Have you traveled outside of the country in past 3 weeks: No - Coronavirus Screening Are you exhibiting any of the following symptoms?: No Close contact with a COVID-19 positive Pt in past 14-21 Days: No - Vaccine Status Have you recieved a Covid-19 vaccination: Yes It Security Analyst: Unknown - Vaccination Dates Dates if Unknown: NA - Review of Systems Constitutional: No Fever, No Chills Eyes: No Symptoms Ears, Nose, & Throat: No Symptoms Respiratory: No Cough, No Dyspnea Cardiac: No Chest Pain, No Edema, No Syncope Abdominal/Gastrointestinal: No Abdominal Pain, No Nausea, No Vomiting, No Diarrhea Genitourinary Symptoms: Urinary Retention, No Dysuria Musculoskeletal: No Back Pain, No Neck Pain Skin: No Rash Neurological: No Dizziness, No Focal Weakness, No Sensory Changes Psychological: No Symptoms Endocrine: No Symptoms All Other Systems: Reviewed and Negative - Past Medical History Pertinent Past Medical History: Yes Neurological History: No Pertinent History ENT History: Cataracts Cardiac History: Arrhythmia Respiratory History: No Pertinent History Endocrine Medical History: No Pertinent History Musculoskeletal History: No Pertinent History GI Medical History: No Pertinent History History: Other Psycho-Social History: No Pertinent History Male Reproductive Disorders: Other Other Medical History: 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 PACEMAKER/DEFIBRILLIATOR. B ROSALIE. - Past Surgical History Past Surgical History: Yes Neuro Surgical History: No Pertinent History Cardiac: Pacemaker Respiratory: No Pertinent History Gastrointestinal: Other Genitourinary: No Pertinent History Musculoskeletal: Joint Replacement Male Surgical History: No Pertinent History Other Surgical History: kelly hip replacement, bariatic surgery - Social History Smoking Status: Never smoker How long have you smoked: never Exposure to second hand smoke: Yes Drug Use: none Patient Lives Alone: No - Nursing Vital Signs Nursing Vital Signs: Initial Vital Signs Temperature 98.7 F 05/03/23 17:11 Pulse Rate 102 H 05/03/23 17:11 Respiratory Rate 20 05/03/23 17:11 Blood Pressure 109/68 05/03/23 17:11 O2 Sat by Pulse Oximetry 98 05/03/23 17:11 Pain Scale Pain Intensity 6 - Physical Exam General Appearance: no apparent distress, alert Eye Exam: PERRL/EOMI, eyes nml inspection Ears, Nose, Throat Exam: normal ENT inspection, TMs normal, pharynx normal, moist mucous membranes Neck Exam: normal inspection, non-tender, supple, full range of motion Respiratory Exam: normal breath sounds, lungs clear, No respiratory distress Cardiovascular Exam: regular rate/rhythm, normal heart sounds, normal peripheral pulses Gastrointestinal/Abdomen Exam: soft, normal bowel sounds, No tenderness, No mass Back Exam: normal inspection, normal range of motion, No CVA tenderness, No vertebral tenderness Extremity Exam: normal inspection, normal range of motion, pelvis stable Neurologic Exam: alert, oriented x 3, cooperative, normal mood/affect, nml cerebellar function, nml station & gait, sensation nml, No motor deficits Skin Exam: normal color, warm, dry, No rash Lymphatic Exam: No adenopathy SpO2: 96 - Course Nursing assessment & vital signs reviewed: Yes Ordered Tests: Active Orders 24 hr Category Date Time Status Cath [Catheter-[place] [facility]] STAT Care 05/03/23 17:36 Active CULTURE,URINE Stat Lab 05/03/23 17:35 Ordered UA W/RFX UR CULTURE Stat Lab 05/03/23 17:35 Ordered - Progress Progress: improved Progress Note: 05/03/23 17:41 Au catheter was inserted without any difficulty. Patient and his were informed that they should keep the catheter in till they go and see the urologist because patient has a around 500 to 600 cc urine in his bladder when bladder scan was done. His is advised to call via [employer] for bladder care. Counseled pt/family regarding: diagnosis, need for follow-up Medical Desision Making - Independent Historian Additional History obtained from: Spouse - Risk of complications Minimal Risk: Minimal risk of morbidity - Departure Departure Disposition: Home Clinical Impression: Urinary retention with incomplete bladder emptying Condition: Stable Critical Care Time: No Referrals: STEFANIA TOLEDO MD [Primary Care Provider] - Follow up/PCP as directed Instructions: Urinary Retention (DC) Additional Instructions: Discharge/Care Plan CLARISA WHALEN was seen on 05/03/23 in the Emergency Room. The patient was counseled regarding Diagnosis,Lab results, Imaging studies, need for follow up and when to return to the Emergency Room. Prescriptions given: Discharge Note I have spoken with the patient and/or caregivers. I have explained the patient's condition, diagnosis and treatment plan based on the information available to me at this time. I have answered the patient's and/or caregiver's questions and addressed any concerns. The patient and/or caregivers have as good understanding of the patient's diagnosis, condition and treatment plan as can be expected at this point. The vital signs have been stable. The patient's condition is stable and appropriate for discharge from the emergency department. The patient will pursue further outpatient evaluation with the primary care physician or other designated or consulting physician as outlined in the discharge instructions. The patient and/or caregivers are agreeable to this plan of care and follow-up instructions have been explained in detail. The patient and/or caregivers have received these instruction. The patient/and or caregivers are aware that any significant change in condition or worsening of symptoms should prompt an immediate return to this or the closest emergency department or call 911. MARLEECLARISA GARIBAY was seen on 05/03/23 n the Emergency Room. At that time you were treated for an emergent condition, during your visit Laboratory, Radiology and/or other procedures may have been ordered. It is very important that you fo llow-up with your Primary Care Physician STEFANIA TOLEDO within the next 24- 48 hours to review your Emergency Room visit and the final results of testing that was ordered. Some test results such as Urine Cultures, Blood Cultures, and other cultures if ordered will not be finalized for 24-48 hours. If you do not have a Primary Care Provider please call the medical records department at [phone] ext [phone] to obtain a copy of your results or you may sign into our patient portal to obtain these results by visiting us @ [email or web address] and completing the following steps: 1. Click on the Patient Portal link 2. Click the Patient Self Enrollment Link to complete the enrollment form and entering your 3. Once the enrollment form is completed you will receive an email with a temporary ID and password at the email address you provided. 4. Next choose a user name and password. Your user name must be at least 4 characters long and your password must be at least 4 characters long. 5. Choose a security question from the list and provide your answer to the question. If you already have signed into the Health Portal you may access your Health Care Information 13/10 by the following steps: 1. Login to our website @ [email or web address] 2. Enter your original user name and password. FAQS The [facility] Health Portal is an online tool that contains your Lab Results, Radiology Reports, Visit History, Discharge Instructions and Health Summary Lab and Radiology Results will not be available for 72 hours on the portal. The Portal is a secure site, passwords are encryted and URLs are re-written so they cannot be copied and pasted. You and authorized family members are the only ones who can access your Portal. Also there is a timeout feature that protects your information if you leave the Portal page open. If you have technical difficulty please use the Contact Us link on the page this will allow you to submit any questions you have regarding the Portal or you may contact the Medical Record Department at [phone] ext [phone].
[2023-05-03 18:13] LABS: ADD URINE CULTURE? ORDERED SEPARATELY (NO); Appearance Cloudy (Clear); Bacteria None Seen /HPF (None Seen); Bilirubin Small (Negative); Blood Large (Negative); Epithelial Cells None Seen /HPF (None Seen); Glucose, Urine 500 mg/dL (Negative); Hyaline Casts NONE SEEN /LPF (0-2); Ketones Negative (Negative); Leukocyte Esterase Large (Negative); Nitrite Positive (Negative); Ph 5.5 (4.6-8.0); Protein,Urine Dip 100 (Negative); RBC >100 /HPF (0-5); Urobilinogen 0.2 mg/dL (0.2); WBC 51-100 /HPF (0-5)
[2023-05-03 19:25] VITALS: BP 97/59; PULSE 84; O2SAT 94
== END 2023-05-03 19:20 | disposition home or self-care (01) ==
LOC: ED 16:59
DX: R33.9 Retention of urine, unspecified (principal); Z79.01 Long term (current) use of anticoagulants; Z79.84 Long term (current) use of oral hypoglycemic drugs; Z79.891 Long term (current) use of opiate analgesic; Z79.899 Other long term (current) drug therapy
CPT/HCPCS: 51702; 81001; 87086; 99283

== ENCOUNTER 2023-06-04 19:40 | Observation (INO) | payer MEDICARE ==
[2023-06-04] MEDS ORDERED: Sodium Chloride 0.9% 1000 ML 1,000 ML ONE (20:54)
[2023-06-04] MEDS ORDERED: TYLENOL EXTRA STRENGTH 500 MG ONE (20:54)
[2023-06-04] MEDS: TYLENOL EXTRA STRENGTH 500 MG PO ONE (20:55)
[2023-06-04] MEDS: Sodium Chloride 0.9% 1000 ML 1,000 ML IV SCH (20:55)
[2023-06-04 20:58] LABS: Absolute Neutrophil Ct (ANC) 8.78 x10^3/uL (1.4-6.9); BASOPHIL % 0.6 % (0.0-0.4); Basophil (Absolute #) 0.06 x10^3/uL (0-0.4); Eosinophil % 0.3 % (0.00-5.0); Eosinophil (Absolute #) 0.03 x10^3/uL (0-0.5); Hematocrit 41.3 % (42-50); Hemoglobin 13.2 g/dL (12.5-18.0); IMMATURE GRAN # 0.06 x10^3u/L (0.00-0.03); IMMATURE GRAN % 0.6 % (0.00-0.4); Lymphocyte (Absolute #) 0.71 x10^3/uL (1.0-4.6); Lymphocytes % 6.7 % (24.0-44.0); Mean Corpuscular Hemoglobin 28.4 pg (26-32); Mean Platelet Volume 9.5 fL (7.5-11.0); Monocyte (Absolute #) 0.97 x10^3/uL (0.0-1.3); Monocytes % 9.1 % (0.0-12.0); Neutrophil % 82.7 % (36.0-66.0); Platelet Count 201 x10^3/uL (150-450); Red Blood Count 4.64 x10^6/uL (4.1-5.6); Red Cell Distribution Width 14.6 % (11.5-14.0); White Blood Count 10.6 x10^3/uL (4.0-10.5)
[2023-06-04 21:09] LABS: ALBUMIN 3.9 g/dL (3.5-5.0); ANION GAP 17.8 MEQ/L (5-15); BILIRUBIN,TOTAL 0.6 mg/dL (0.2-1.3); Calcium 8.4 mg/dL (8.4-10.2); Creatinine 1 1.37 mg/dL (0.66-1.25); EST GLOMERULAR FILTRATION RATE 51.8 ML/MIN; Potassium 3.9 mmol/L (3.5-5.1); Total Protein 6.8 g/dL (6.3-8.2)
[2023-06-04 21:46] LABS: Appearance Turbid (Clear); Bilirubin Negative (Negative); Blood Large (Negative); Glucose, Urine Negative (Negative); Ketones Negative (Negative); Leukocyte Esterase Large (Negative); Nitrite Positive (Negative); Ph 5.5 (4.6-8.0); Protein,Urine Dip 100 (Negative); Specific Gravity 1.015 (1.005-1.030); Urobilinogen 0.2 mg/dL (0.2)
[2023-06-04 21:49] LABS: ADD URINE CULTURE? ORDERED SEPARATELY (NO); Bacteria Many /HPF (None Seen); Epithelial Cells Rare /HPF (None Seen); Hyaline Casts 20-50 /LPF (0-2); WBC >100 /HPF (0-5)
[2023-06-04] MEDS ORDERED: ROCEPHIN 2 Gm-D5w 50ML BAG** 2 G/50 ML IVPB IV ONE (22:10)
[2023-06-04] MEDS: ROCEPHIN 2 Gm-D5w 50ML BAG** 2 G/50 ML IVPB IV STA (22:14)
--- NOTE | 2023-06-04 22:46 | ERPHSYRPT ---
- History of Present Illness Time Seen by Provider: 06/04/23 19:49 Historian: patient, family Exam Limitations: no limitations Patient Subjective Stated Complaint: pt states that he thinks he has a urinary tract infection. pt states that he has been septic before and currently has a kidney stone Triage Nursing Assessment: pt came into the er via wheelchair; pt is axo x3; pt was transferred to cot per staff; kerr cath in place at time of triage and changed per protocol. 16 latvian f/c placed; urine purulant, cloudy, foul odor present; febrile at 100.6 oral; skin pale, hot to the touch; c/o abd pain; c/o nausea; pt denies vomiting and diarrhea; active bowel sounds in all quads; no respiratory distress present; vital wnl Physician History: 83-year-old with multiple medical problems including atrial fibrillation with a pacemaker on Eliquis, hypertension, congestive heart failure, COPD previously on hospice presented in the ER with complaints of sudden onset feeling of weakness fatigue tiredness along with fever and chills around 3:30 PM associated with abdominal pain. Patient has a temperature of 100.6 on presentation in the ER. Complaining of generalized abdominal pain especially on the left side with a ssociated darkening of urine. Patient has indwelling catheter because of neurogenic bladder, scheduled to see urologist later this month. Patient reports having similar symptoms in the past with UTI. Denies any chest pain palpitations or shortness of breath. No cough congestion or URI symptoms r eported. Denies any known sick contact. Allergies/Adverse Reactions: fluoxetine HCl [From Prozac] Allergy (Verified 06/04/23 20:23) Home Medications: Venlafaxine HCl ER 75 mg [Effexor XR 75 MG] 225 mg PO DAILY 05/25/13 [History] Ferrous Sulfate [Iron] 325 mg PO DAILY 06/01/18 [History] Apixaban [Eliquis] 2.5 mg PO BID 09/26/22 [History] Cyanocobalamin/Folic Acid [Vitamin E46-Tuqnx Acid Tablet] 500 mcg PO DAILY 09/26/22 [History] Finasteride 5 mg [Proscar 5 MG] 5 mg PO DAILY 09/26/22 [History] Furosemide 20 mg [Lasix 20 mg] 20 mg PO DAILY 09/26/22 [History] Metoprolol Tartrate 25 mg [Lopressor 25MG Tab] 12.5 mg PO DAILY 09/26/22 [History] Potassium Chloride [Klor-Con M10] 10 meq PO DAILY 09/26/22 [History] Acetaminophen 500 mg [Tylenol Extra Strength 500 mg] 500 mg PO Q6HPRN PRN 04/10/23 [History] Albuterol Sulfate [Proair Digihaler] 90 mcg IH QIDPRN PRN 04/10/23 [History] Bisacodyl 10 mg [Dulcolax 10 MG SUPP] 10 mg [facility] 04/10/23 [History] Bisacodyl 5 mg [Dulcolax 5 mg] 5 mg PO DAILY PRN PRN 04/10/23 [History] Bupropion HCl Xl 150 mg [Wellbutrin XL 150 MG] 150 mg PO DAILY 04/10/23 [History] Cholecalciferol (Vitamin D3) [Vitamin D3] 50 mcg PO DAILY 04/10/23 [History] Empagliflozin [Jardiance] 10 mg PO DAILY 04/10/23 [History] Hydrocodone/Acetaminophen [Hydrocodone-Acetamin 7.5-325] 1 tablet PO QID PRN 04/10/23 [History] Megestrol Acetate 625 mg PO DAILY 04/10/23 [History] Methenamine Hippurate 1 gm PO BID 04/10/23 [History] Polyethylene Glycol 3350 17 gm [Miralax Powder 17GM PACKET] 1 each PO DAILY 04/10/23 [History] Sennosides [Vegetable Laxative] 2 tab PO DAILY PRN PRN 04/10/23 [History] Sodium Phosphate,Hooker-Dibasic [Fleet Enema] 133 ml [facility] 04/10/23 [History] Zinc Oxide Ointment 30 gm 1 each .ROUTE 04/10/23 [History] Hx Tetanus, Diphtheria Vaccination/Date Given: Yes Hx Influenza Vaccination/Date Given: Yes Hx Pneumococcal Vaccination/Date Given: Yes Travel Risk - International Travel Have you traveled outside of the country in past 3 weeks: No - Coronavirus Screening Are you exhibiting any of the following symptoms?: Yes Symptoms: Fever Close contact with a COVID-19 positive Pt in past 14-21 Days: No - Vaccine Status Have you recieved a Covid-19 vaccination: Yes 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 - Vaccination Dates Date of 2cond Vaccination (if applicable): 2020 - Review of Systems Constitutional: Fever, Chills, Fatigue, Weakness Eyes: No Symptoms Ears, Nose, & Throat: No Symptoms Respiratory: No Symptoms Cardiac: No Symptoms Abdominal/Gastrointestinal: Abdominal Pain, Nausea Genitourinary Symptoms: Urinary Retention Musculoskeletal: Arthralgias Skin: No Symptoms Neurological: Dizziness Endocrine: No Symptoms Hematologic/Lymphatic: No Symptoms Immunological/Allergic: No Symptoms - Past Medical History Pertinent Past Medical History: Yes Neurological History: No Pertinent History ENT History: Cataracts Cardiac History: Arrhythmia Respiratory History: No Pertinent History Endocrine Medical History: No Pertinent History Musculoskeletal History: No Pertinent History GI Medical History: No Pertinent History History: Other Psycho-Social History: No Pertinent History Male Reproductive Disorders: Other Other Medical History: 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 PACEMAKER/DEFIBRILLIATOR. B ROSALIE. - Past Surgical History Past Surgical History: Yes Neuro Surgical History: No Pertinent History Cardiac: Pacemaker Respiratory: No Pertinent History Gastrointestinal: Other Genitourinary: No Pertinent History Musculoskeletal: Joint Replacement Male Surgical History: No Pertinent History Other Surgical History: kelly hip replacement, bariatic surgery - Social History Smoking Status: Never smoker How long have you smoked: never Exposure to second hand smoke: No Drug Use: none Patient Lives Alone: No - Nursing Vital Signs Nursing Vital Signs: Initial Vital Signs Temperature 100.6 F 06/04/23 19:50 Pulse Rate 91 H 06/04/23 19:50 Respiratory Rate 18 06/04/23 19:50 Blood Pressure 119/71 06/04/23 19:50 O2 Sat by Pulse Oximetry 95 06/04/23 19:50 Pain Scale Pain Intensity 3 - Physical Exam General Appearance: no apparent distress, alert Eye Exam: PERRL/EOMI Ears, Nose, Throat Exam: normal ENT inspection Neck Exam: normal inspection, non-tender, supple, full range of motion Respiratory Exam: normal breath sounds, lungs clear Cardiovascular Exam: regular rate/rhythm, normal heart sounds Gastrointestinal/Abdomen Exam: soft, normal bowel sounds, tenderness (Generalized moderate tenderness with minimal guarding especially in the left side) Male Genitalia Exam: normal genitalia, other (Catheter in place) Back Exam: normal inspection, normal range of motion Extremity Exam: normal inspection, normal range of motion Neurologic Exam: alert, oriented x 3, cooperative, 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, normal mood/affect, nml cerebellar function, sensation nml, No motor deficits Skin Exam: normal color SpO2 Interpretation: normal SpO2: 95 O2 Delivery: Room Air Ordered Tests: Active Orders 24 hr Category Date Time Status ABDOMEN AND PELVIS W/0 CONTRAS [CT] Stat Exams 06/04/23 21:36 Taken BLOOD CULTURE Stat Lab 06/04/23 21:05 Received BLOOD CULTURE Stat Lab 06/04/23 21:12 Received CBC W DIFF Stat Lab 06/04/23 20:30 Completed CMP Stat Lab 06/04/23 20:30 Completed CULTURE,URINE Stat Lab 06/04/23 20:52 Received Lactic Acid Stat Lab 06/04/23 21:00 Completed PROCALCITONIN Stat Lab 06/04/23 20:30 Completed UA W/RFX UR CULTURE Stat Lab 06/04/23 20:52 Completed Medication Summary Generic Name Dose Route Start Last Admin Trade Name Freq PRN Reason Stop Dose Admin Sodium Chloride 1,000 mls @ 125 mls/hr 06/04/23 21:00 06/04/23 20:55 Sodium Chloride 0.9% 1000 Ml IV 07/04/23 20:59 125 mls/hr .Q8H AKHIL Administration Discontinued Medications Generic Name Dose Route Start Last Admin Trade Name Freq PRN Reason Stop Dose Admin Acetaminophen 1,000 mg 06/04/23 20:52 06/04/23 20:55 Acetaminophen 500 Mg Tablet PO 06/04/23 20:53 1,000 mg STAT ONE Administration Acetaminophen Confirm 06/04/23 20:54 Acetaminophen 500 Mg Tablet Administered 06/04/23 20:55 Dose 1,000 mg .ROUTE .STK-MED ONE Ceftriaxone Sodium/Dextrose 2 g in 50 mls @ 100 mls/hr 06/04/23 22:05 06/04/23 22:51 Rocephin 2 Gm-D5w 50ml Bag IV 06/04/23 22:34 Infused STAT STA Infusion Ceftriaxone Sodium/Dextrose Confirm 06/04/23 22:10 Rocephin 2 Gm-D5w 50ml Bag Administered 06/04/23 22:11 Dose 2 g in 50 mls @ ud IV .STK-MED ONE Lab/Rad Data: Laboratory Result Diagrams 06/04/23 20:30 06/04/23 20:30 Laboratory Results 06/04/23 06/04/23 06/04/23 Range/Units 21:00 20:52 20:30 WBC (4.0-10.5) x10^3/uL RBC (4.1-5.6) x10^6/uL Hgb (12.5-18.0) g/dL Hct (42-50) % MCV (78-100) fL MCH (26-32) pg MCHC (32-36) g/dL RDW (11.5-14.0) % Plt Count (150-450) x10^3/uL MPV (7.5-11.0) fL Gran % (36.0-66.0) % Immature Gran % (Auto) (0.00-0.4) % Nucleat RBC Rel Count (0.00-0.1) % Eos # (Auto) (0-0.5) x10^3/uL Immature Gran # (Auto) (0.00-0.03) x10^3u/L Absolute Lymphs (auto) (1.0-4.6) x10^3/uL Absolute Monos (auto) (0.0-1.3) x10^3/uL Absolute Nucleated RBC (0.00-0.01) x10^3u/L Lymphocytes % (24.0-44.0) % Monocytes % (0.0-12.0) % Eosinophils % (0.00-5.0) % Basophils % (0.0-0.4) % Absolute Granulocytes (1.4-6.9) x10^3/uL Basophils # (0-0.4) x10^3/uL Sodium (135-145) mmol/L Potassium (3.5-5.1) mmol/L Chloride (98-107) mmol/L Carbon Dioxide (22-30) mmol/L Anion Gap (5-15) MEQ/L BUN (9-20) mg/dL Creatinine (0.66-1.25) mg/dL Estimated GFR ML/MIN Glucose (74-106) mg/dL Lactic Acid 1.9 (0.4-2.0) Calcium (8.4-10.2) mg/dL Total Bilirubin (0.2-1.3) mg/dL AST (17-59) U/L ALT (0-50) U/L Alkaline Phosphatase (38-126) U/L Serum Total Protein (6.3-8.2) g/dL Albumin (3.5-5.0) g/dL Procalcitonin 0.171 H (0.030-0.080) ng/mL Urine Color Other A (Yellow) Urine Appearance Turbid A (Clear) Urine pH 5.5 (4.6-8.0) Ur Specific [place] 1.015 (1.005-1.030) Urine Protein 100 A (Negative) Urine Glucose (UA) Negative (Negative) mg/dL Urine Ketones Negative (Negative) Urine Blood Large A (Negative) Urine Nitrite Positive A (Negative) Urine Bilirubin Negative (Negative) Urine Urobilinogen 0.2 (0.2) mg/dL Ur Leukocyte Esterase Large A (Negative) U Hyaline Cast (Auto) 20-50 (0-2) /LPF Urine Microscopic RBC 11-20 A (0-5) /HPF Urine Microscopic WBC >100 A (0-5) /HPF Ur Epithelial Cells Rare (None Seen) /HPF Urine Bacteria Many A (None Seen) /HPF Urine Culture Reflexed ORDERED SEPARATELY (NO) 06/04/23 06/04/23 Range/Units 20:30 20:30 WBC 10.6 H (4.0-10.5) x10^3/uL RBC 4.64 (4.1-5.6) x10^6/uL Hgb 13.2 (12.5-18.0) g/dL Hct 41.3 L (42-50) % MCV 89.0 (78-100) fL MCH 28.4 (26-32) pg MCHC 32.0 (32-36) g/dL RDW 14.6 H (11.5-14.0) % Plt Count 201 (150-450) x10^3/uL MPV 9.5 (7.5-11.0) fL Gran % 82.7 H (36.0-66.0) % Immature Gran % (Auto) 0.6 H (0.00-0.4) % Nucleat RBC Rel Count 0.0 (0.00-0.1) % Eos # (Auto) 0.03 (0-0.5) x10^3/uL Immature Gran # (Auto) 0.06 H (0.00-0.03) x10^3u/L Absolute Lymphs (auto) 0.71 L (1.0-4.6) x10^3/uL Absolute Monos (auto) 0.97 (0.0-1.3) x10^3/uL Absolute Nucleated RBC 0.00 (0.00-0.01) x10^3u/L Lymphocytes % 6.7 L (24.0-44.0) % Monocytes % 9.1 (0.0-12.0) % Eosinophils % 0.3 (0.00-5.0) % Basophils % 0.6 (0.0-0.4) % Absolute Granulocytes 8.78 H (1.4-6.9) x10^3/uL Basophils # 0.06 (0-0.4) x10^3/uL Sodium 130 L (135-145) mmol/L Potassium 3.9 (3.5-5.1) mmol/L Chloride 100 (98-107) mmol/L Carbon Dioxide 17 L (22-30) mmol/L Anion Gap 17.8 H (5-15) MEQ/L BUN 26 H (9-20) mg/dL Creatinine 1.37 H (0.66-1.25) mg/dL Estimated GFR 51.8 ML/MIN Glucose 110 H (74-106) mg/dL Lactic Acid (0.4-2.0) Calcium 8.4 (8.4-10.2) mg/dL Total Bilirubin 0.60 (0.2-1.3) mg/dL AST 26 (17-59) U/L ALT 20 (0-50) U/L Alkaline Phosphatase 139 H (38-126) U/L Serum Total Protein 6.8 (6.3-8.2) g/dL Albumin 3.9 (3.5-5.0) g/dL Procalcitonin (0.030-0.080) ng/mL Urine Color (Yellow) Urine Appearance (Clear) Urine pH (4.6-8.0) Ur Specific [place] (1.005-1.030) Urine Protein (Negative) Urine Glucose (UA) (Negative) mg/dL Urine Ketones (Negative) Urine Blood (Negative) Urine Nitrite (Negative) Urine Bilirubin (Negative) Urine Urobilinogen (0.2) mg/dL Ur Leukocyte Esterase (Negative) U Hyaline Cast (Auto) (0-2) /LPF Urine Microscopic RBC (0-5) /HPF Urine Microscopic WBC (0-5) /HPF Ur Epithelial Cells (None Seen) /HPF Urine Bacteria (None Seen) /HPF Urine Culture Reflexed (NO) - Progress Progress: improved, re-examined Progress Note: 06/04/23 22:44 83-year-old is evaluated for sudden onset generalized weakness fatigue tiredness fever abdominal pain in the presence of indwelling catheter. Having UTI in the past as well. He is given Tylenol for symptomatic relief and started on gentle hydration. Workup showed white count of 10, chemistries with a sodium of 130, stable CKD and elected of 1.9, procalcitonin of 0.17 and significant UTI. Started on Rocephin. CT abdomen pelvis showed left hydroureter and hydronephrosis with no obvious stone. Some element of enteritis, other chronic findings in the CT abdomen pelvis but no acute new changes per preliminary repor t official report is pending. I believe patient has sepsis UTI, discussed the results of workup with patient and family and will place on observation admission. Hospitalist has been called. 06/04/23 23:[address] Grullon, reviewed history, workup and agreed with admission. Will see patient in: hospital (observation) Counseled pt/family regarding: lab results, diagnosis, rad results Medical Desision Making - Independent Historian Additional History obtained from: Spouse - Discussion of managment Care discussed with:: hospitalist Reviewed:: Test results Agreed on:: Treatment plan Will see patient: in hospital - Diagnostic Testing Diagnostic test were ordered, analyzed, and reviewed by me: Yes Radiological Interpretation: Reviewed by me, Teleradiologist Report - Risk of complications The pt has a mod risk of morbidity or mortality based on: Need for prescription drug management - Departure Departure Disposition: Observation Clinical Impression: Sepsis due to urinary tract infection, Enteritis Condition: Stable Critical Care Time: No Referrals: STEFANIA TOLEDO MD [Primary Care Provider] - Follow up/PCP as directed
--- NOTE | 2023-06-05 00:05 | PCM.HP ---
History of Present Illness - Chief Complaint Chief Complaint: uti Date: 06/04/23 History of Present Illness: Mr. WHALEN is a 83 year old male with a past medical history significant for hypertension, hyperlipidemia, atrial fibrillation and CHF status post PPM/AICD who presents to the hospital not feeling well. He has a neurogenic bladder that requires frequent self cath and had noticed some increasing burning with urination, low grade fever and fatigue. No sick contacts. No chest pain or shortness of breath. No nausea, vomiting or diarrhea. No NSAIDs or exposure to contrast studies. - Review of Systems Constitutional: Fever, Fatigue, Lethargy Eyes: No Discharge Ears, Nose, & Throat: No Throat Pain, No Painful Swallowing Respiratory: No Cough, No Orthopnea, No Short Of Breath Cardiac: No Chest Pain, No Edema, No Palpitations, No Syncope Abdominal/Gastrointestinal: Nausea, No Abdominal Pain, No Vomiting Genitourinary Symptoms: Dysuria, Urgency, Flank Pain Musculoskeletal: Arthralgias Skin: Cellulitis Neurological: No Focal Weakness, No Parasthesia Psychological: No Suicidal Ideations Medications & Allergies Home Medications: Home Medication List Venlafaxine HCl ER 75 mg [Effexor XR 75 MG] 225 mg PO DAILY 05/25/13 [History Confirmed 06/04/23] Ferrous Sulfate [Iron] 325 mg PO DAILY 06/01/18 [History Confirmed 06/04/23] Apixaban [Eliquis] 2.5 mg PO BID 09/26/22 [History Confirmed 06/04/23] Cyanocobalamin/Folic Acid [Vitamin X81-Zkanu Acid Tablet] 500 mcg PO DAILY 09/26/22 [History Confirmed 06/04/23] Finasteride 5 mg [Proscar 5 MG] 5 mg PO DAILY 09/26/22 [History Confirmed 06/04/23] Furosemide 20 mg [Lasix 20 mg] 20 mg PO DAILY 09/26/22 [History Confirmed 06/04/23] Metoprolol Tartrate 25 mg [Lopressor 25MG Tab] 12.5 mg PO DAILY 09/26/22 [History Confirmed 06/04/23] Potassium Chloride [Klor-Con M10] 10 meq PO DAILY 09/26/22 [History Confirmed 06/04/23] Acetaminophen 500 mg [Tylenol Extra Strength 500 mg] 500 mg PO Q6HPRN PRN 04/10/23 [History Confirmed 06/04/23] Albuterol Sulfate [Proair Digihaler] 90 mcg IH QIDPRN PRN 04/10/23 [History Confirmed 06/04/23] Bisacodyl 10 mg [Dulcolax 10 MG SUPP] 10 mg [facility] 04/10/23 [History Confirmed 06/04/23] Bisacodyl 5 mg [Dulcolax 5 mg] 5 mg PO DAILY PRN PRN 04/10/23 [History Confirmed 06/04/23] Bupropion HCl Xl 150 mg [Wellbutrin XL 150 MG] 150 mg PO DAILY 04/10/23 [History Confirmed 06/04/23] Cholecalciferol (Vitamin D3) [Vitamin D3] 50 mcg PO DAILY 04/10/23 [History Confirmed 06/04/23] Empagliflozin [Jardiance] 10 mg PO DAILY 04/10/23 [History Confirmed 06/04/23] Hydrocodone/Acetaminophen [Hydrocodone-Acetamin 7.5-325] 1 tablet PO QID PRN 04/10/23 [History Confirmed 06/04/23] Megestrol Acetate 625 mg PO DAILY 04/10/23 [History Confirmed 06/04/23] Methenamine Hippurate 1 gm PO BID 04/10/23 [History Confirmed 06/04/23] Polyethylene Glycol 3350 17 gm [Miralax Powder 17GM PACKET] 1 each PO DAILY 04/10/23 [History Confirmed 06/04/23] Sennosides [Vegetable Laxative] 2 tab PO DAILY PRN PRN 04/10/23 [History Confirmed 06/04/23] Sodium Phosphate,Cochran-Dibasic [Fleet Enema] 133 ml [facility] 04/10/23 [History Con firmed 06/04/23] Zinc Oxide Ointment 30 gm 1 each .ROUTE UD 04/10/23 [History Confirmed 06/04/23] Allergies/Adverse Reactions: Allergies Allergy/AdvReac Type Severity Reaction Status Date / Time fluoxetine HCl [From Prozac] Allergy Verified 06/04/23 20:23 - Past Medical History Past Medical History: Yes Neurological History: No Pertinent History ENT History: Cataracts Cardiac History: Arrhythmia Respiratory History: No Pertinent History Endocrine Medical History: No Pertinent History Musculoskelatal History: No Pertinent History GI Medical History: No Pertinent History History: Other Pyscho-Social History: No Pertinent History Male Reproductive Disorders: Other Comment: 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 PACEMAKER/DEFIBRILLIATOR. B ROSALIE. - Past Surgical History Past Surgical History: Yes Neuro Surgical History: No Pertinent History Cardiac History: Pacemaker Respiratory Surgery: No Pertinent History GI Surgical History: Other Genitourinary Surgical Hx: No Pertinent History Musculskeletal Surgical Hx: Joint Replacement Male Surgical History: No Pertinent History Other Surgical History: kelly hip replacement, bariatic surgery - Social History Smoking Status: Never smoker How long have you smoked: never Exposure to second hand smoke: No Alcohol: None Drug Use: none - Social Determinants of Health Will the patient participate in the screening: Yes Do you worry about a steady place to live?: No In the past 12 months,have you had to go without utilities?: No Have you or anyone in your house had to go without enough: No Transportation Issues: No Has anyone in your support network made you feel unsafe?: No Does the patient want assistance with any of the above?: No - Physical Exam Vital Signs: Vital Signs - 24 hr Temp Pulse Resp BP BP Pulse Ox 06/04/23 23:33 95 06/04/23 23:30 81 101/69 97 06/04/23 23:00 79 109/75 96 06/04/23 22:30 80 103/69 97 06/04/23 22:00 79 108/70 96 06/04/23 21:50 97 06/04/23 21:43 97 06/04/23 21:00 90 97/71 95 06/04/23 20:30 91 H 16 108/67 97 06/04/23 19:50 100.6 F 91 H 18 119/71 95 General Appearance: lethargy Neurologic Exam: cooperative Ears, Nose, Throat Exam: dry mucous membranes Neck Exam: normal inspection, supple Respiratory Exam: No respiratory distress, No wheezing, No stridor Cardiovascular Exam: regular rate/rhythm Gastrointestinal/Abdomen Exam: soft, No guarding Extremity Exam: No pedal edema, No swelling Skin Exam: normal color, warm, No rash Results - Labs Lab/Micro Results: Lab Results-Last 24 Hours 06/04/23 06/04/23 06/04/23 Range/Units 20:30 20:30 20:30 WBC 10.6 H (4.0-10.5) x10^3/uL RBC 4.64 (4.1-5.6) x10^6/uL Hgb 13.2 (12.5-18.0) g/dL Hct 41.3 L (42-50) % MCV 89.0 (78-100) fL MCH 28.4 (26-32) pg MCHC 32.0 (32-36) g/dL RDW 14.6 H (11.5-14.0) % Plt Count 201 (150-450) x10^3/uL MPV 9.5 (7.5-11.0) fL Gran % 82.7 H (36.0-66.0) % Immature Gran % (Auto) 0.6 H (0.00-0.4) % Nucleat RBC Rel Count 0.0 (0.00-0.1) % Eos # (Auto) 0.03 (0-0.5) x10^3/uL Immature Gran # (Auto) 0.06 H (0.00-0.03) x10^3u/L Absolute Lymphs (auto) 0.71 L (1.0-4.6) x10^3/uL Absolute Monos (auto) 0.97 (0.0-1.3) x10^3/uL Absolute Nucleated RBC 0.00 (0.00-0.01) x10^3u/L Lymphocytes % 6.7 L (24.0-44.0) % Monocytes % 9.1 (0.0-12.0) % Eosinophils % 0.3 (0.00-5.0) % Basophils % 0.6 (0.0-0.4) % Absolute Granulocytes 8.78 H (1.4-6.9) x10^3/uL Basophils # 0.06 (0-0.4) x10^3/uL Sodium 130 L (135-145) mmol/L Potassium 3.9 (3.5-5.1) mmol/L Chloride 100 (98-107) mmol/L Carbon Dioxide 17 L (22-30) mmol/L Anion Gap 17.8 H (5-15) MEQ/L BUN 26 H (9-20) mg/dL Creatinine 1.37 H (0.66-1.25) mg/dL Estimated GFR 51.8 ML/MIN Glucose 110 H (74-106) mg/dL Lactic Acid (0.4-2.0) Calcium 8.4 (8.4-10.2) mg/dL Total Bilirubin 0.60 (0.2-1.3) mg/dL AST 26 (17-59) U/L ALT 20 (0-50) U/L Alkaline Phosphatase 139 H (38-126) U/L Serum Total Protein 6.8 (6.3-8.2) g/dL Albumin 3.9 (3.5-5.0) g/dL Procalcitonin 0.171 H (0.030-0.080) ng/mL Urine Color (Yellow) Urine Appearance (Clear) Urine pH (4.6-8.0) Ur Specific Randolph (1.005-1.030) Urine Protein (Negative) Urine Glucose (UA) (Negative) mg/dL Urine Ketones (Negative) Urine Blood (Negative) Urine Nitrite (Negative) Urine Bilirubin (Negative) Urine Urobilinogen (0.2) mg/dL Ur Leukocyte Esterase (Negative) U Hyaline Cast (Auto) (0-2) /LPF Urine Microscopic RBC (0-5) /HPF Urine Microscopic WBC (0-5) /HPF Ur Epithelial Cells (None Seen) /HPF Urine Bacteria (None Seen) /HPF Urine Culture Reflexed (NO) 06/04/23 06/04/23 Range/Units 20:52 21:00 WBC (4.0-10.5) x10^3/uL RBC (4.1-5.6) x10^6/uL Hgb (12.5-18.0) g/dL Hct (42-50) % MCV (78-100) fL MCH (26-32) pg MCHC (32-36) g/dL RDW (11.5-14.0) % Plt Count (150-450) x10^3/uL MPV (7.5-11.0) fL Gran % (36.0-66.0) % Immature Gran % (Auto) (0.00-0.4) % Nucleat RBC Rel Count (0.00-0.1) % Eos # (Auto) (0-0.5) x10^3/uL Immature Gran # (Auto) (0.00-0.03) x10^3u/L Absolute Lymphs (auto) (1.0-4.6) x10^3/uL Absolute Monos (auto) (0.0-1.3) x10^3/uL Absolute Nucleated RBC (0.00-0.01) x10^3u/L Lymphocytes % (24.0-44.0) % Monocytes % (0.0-12.0) % Eosinophils % (0.00-5.0) % Basophils % (0.0-0.4) % Absolute Granulocytes (1.4-6.9) x10^3/uL Basophils # (0-0.4) x10^3/uL Sodium (135-145) mmol/L Potassium (3.5-5.1) mmol/L Chloride (98-107) mmol/L Carbon Dioxide (22-30) mmol/L Anion Gap (5-15) MEQ/L BUN (9-20) mg/dL Creatinine (0.66-1.25) mg/dL Estimated GFR ML/MIN Glucose (74-106) mg/dL Lactic Acid 1.9 (0.4-2.0) Calcium (8.4-10.2) mg/dL Total Bilirubin (0.2-1.3) mg/dL AST (17-59) U/L ALT (0-50) U/L Alkaline Phosphatase (38-126) U/L Serum Total Protein (6.3-8.2) g/dL Albumin (3.5-5.0) g/dL Procalcitonin (0.030-0.080) ng/mL Urine Color Other A (Yellow) Urine Appearance Turbid A (Clear) Urine pH 5.5 (4.6-8.0) Ur Specific Randolph 1.015 (1.005-1.030) Urine Protein 100 A (Negative) Urine Glucose (UA) Negative (Negative) mg/dL Urine Ketones Negative (Negative) Urine Blood Large A (Negative) Urine Nitrite Positive A (Negative) Urine Bilirubin Negative (Negative) Urine Urobilinogen 0.2 (0.2) mg/dL Ur Leukocyte Esterase Large A (Negative) U Hyaline Cast (Auto) 20-50 (0-2) /LPF Urine Microscopic RBC 11-20 A (0-5) /HPF Urine Microscopic WBC >100 A (0-5) /HPF Ur Epithelial Cells Rare (None Seen) /HPF Urine Bacteria Many A (None Seen) /HPF Urine Culture Reflexed ORDERED SEPARATELY (NO) Microbiology 06/04/23 21:12 Blood Culture Gram Stain - Final Blood Not Reportable - Radiology Impressions Radiology Exams & Impressions: Radiology Procedures Category Date Time Status ABDOMEN AND PELVIS W/0 CONTRAS [CT] Stat Exams 06/04/23 21:36 Taken Assessment/Plan (1) Sepsis due to urinary tract infection Current Visit: Yes Status: Acute Assessment & Plan: Likely with UTI based on urine studies, at higher risk due to SGLT2 1. Admit to hospital 2. IVFs 3. Empiric antibiotics 4. Would hold SGLT2 due to risk of UTIs 5. Follow up urine culture Code(s): A41.9 - SEPSIS, UNSPECIFIED ORGANISM; N39.0 - URINARY TRACT INFECTION, SITE NOT SPECIFIED (2) DENNIS (acute kidney injury) Current Visit: No Status: Acute Assessment & Plan: Creatinine 1.4 likely from prerenal azotemia 1. IVFs 2. Hold SGLT2 3. Check urine lytes, urine creatinine 4. Follow I/Os 5. Watch electrolytes, kidney function closely Code(s): N17.9 - ACUTE KIDNEY FAILURE, UNSPECIFIED (3) Hyponatremia Current Visit: No Status: Acute Assessment & Plan: Likely from hypovolemia 1. NS IVFs 2. Limit free water 3. Watch electrolytes closely Code(s): E87.1 - HYPO-OSMOLALITY AND HYPONATREMIA (4) Hypertensive chronic kidney disease with stage 1 through stage 4 chronic kidney disease, or unspecified chronic kidney disease Current Visit: Yes Status: Acute Assessment & Plan: Blood pressure under good control, somewhat hypotensive due to infection 1. NS IVFs 2. Defer RITIKA/ARB 3. Monitor blood pressure readings Code(s): I12.9 - HYPERTENSIVE CHRONIC KIDNEY DISEASE W STG 1-4/UNSP CHR KDNY Telemedicine Encounter - Telemedicine Encounter Telemedicine Encounter: The entirety of this encounter was performed via Telemedicine"
[2023-06-05] MEDS: ROCEPHIN 1 GM / 100 ML NaCl 1 GM/100 ML IVPB IV SCH ×2 (00:26→21:22)
[2023-06-05] MEDS: Sodium Chloride 0.9% 1000 ML 1,000 ML IV SCH (03:15)
[2023-06-05 07:02] LABS: Absolute Neutrophil Ct (ANC) 4.64 x10^3/uL (1.4-6.9); BASOPHIL % 1.1 % (0.0-0.4); Basophil (Absolute #) 0.07 x10^3/uL (0-0.4); Eosinophil % 1.4 % (0.00-5.0); Eosinophil (Absolute #) 0.09 x10^3/uL (0-0.5); Hematocrit 39.3 % (42-50); Hemoglobin 12.2 g/dL (12.5-18.0); IMMATURE GRAN # 0.07 x10^3u/L (0.00-0.03); IMMATURE GRAN % 1.1 % (0.00-0.4); Lymphocyte (Absolute #) 0.97 x10^3/uL (1.0-4.6); Lymphocytes % 14.6 % (24.0-44.0); Mean Cell Volume 90.3 fL (78-100); Mean Platelet Volume 8.9 fL (7.5-11.0); Monocyte (Absolute #) 0.81 x10^3/uL (0.0-1.3); Monocytes % 12.2 % (0.0-12.0); Neutrophil % 69.6 % (36.0-66.0); Platelet Count 190 x10^3/uL (150-450); Red Blood Count 4.35 x10^6/uL (4.1-5.6); Red Cell Distribution Width 14.7 % (11.5-14.0); White Blood Count 6.7 x10^3/uL (4.0-10.5)
--- NOTE | 2023-06-05 07:11 | XRAY ---
Indication: Abdominal pain and nausea. Multiple contiguous axial images obtained through the abdomen and pelvis without contrast. Comparison: April 11, 2023 Lung bases again demonstrates pulmonary emphysema with minimal bibasilar subsegmental atelectasis. No infiltrate or effusion. Heart not enlarged. Stable moderate-sized hiatal hernia. Pelvis again limited due to extreme beam artifact from bilateral hip prostheses. Again gastric bypass surgery. Noncontrasted stomach and bowel loops appear nonobstructed. Several jejunal bowel loops are again mildly fluid distended with mild wall thickening favoring enteritis. Appendix not visualized. Again moderate diffuse colonic fecal debris. Stable left mid renal punctate calculus, mild left hydronephrosis, and left hydroureter. Empty urinary bladder again demonstrates Au balloon catheter in situ. Remaining liver, gallbladder, pancreas, spleen, adrenal glands, right kidney, and right ureter are unremarkable for noncontrast exam. There remains mild scattered aortoiliac calcifications without AAA. Osseous structures intact again without osteopenia, mild/moderate multilevel thoracolumbar degenerative spondylosis, and mild double curvature of the lumbar scoliosis. Impression: 1. 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 2. Again CT features favoring small bowel enteritis and moderate diffuse fecal stasis. 3. Chronic findings including pulmonary emphysema, moderate sized hiatal hernia, left renal punctate calculus, left hydronephrosis/hydroureter, Au balloon catheter in situ, arteriosclerotic disease, and chronic bony findings.
[2023-06-05 07:38] LABS: ALBUMIN 3.5 g/dL (3.5-5.0); BILIRUBIN,TOTAL 0.3 mg/dL (0.2-1.3); Calcium 8.2 mg/dL (8.4-10.2); Creatinine 1 1.53 mg/dL (0.66-1.25); EST GLOMERULAR FILTRATION RATE 45.4 ML/MIN; Potassium 3.7 mmol/L (3.5-5.1); Total Protein 6.3 g/dL (6.3-8.2)
[2023-06-05] MEDS ORDERED: TYLENOL EXTRA STRENGTH 500 MG PO PRN (07:46)
[2023-06-05] MEDS ORDERED: NON-FORMULARY ITEM (Albuterol Sulfate [Proair Digihaler] 90 MCG Aer.Pw.Bas) IH PRN ×2 (07:46→07:57)
[2023-06-05] MEDS ORDERED: NORCO 7.5/325 MG TAB PO PRN (07:46)
[2023-06-05] MEDS ORDERED: VENTOLIN COMMON CANISTER IH PRN (07:58)
[2023-06-05] MEDS ORDERED: MEDICATION INTERVENTION MC SCH (08:15)
[2023-06-05] MEDS: Effexor XR 75 MG PO SCH (09:50)
[2023-06-05] MEDS: Proscar 5 MG PO SCH (09:50)
[2023-06-05] MEDS: Wellbutrin XL 150 MG PO SCH (09:50)
[2023-06-05] MEDS: VITAMIN D PO SCH (09:50)
[2023-06-05] MEDS: FOLATE 1 MG PO SCH (09:51)
[2023-06-05] MEDS: ELIQUIS 2.5 MG TABLET PO SCH (09:51)
[2023-06-05] MEDS: Vitamin B-12 500 MCG PO SCH (09:51)
[2023-06-05] MEDS: Klor Con PO SCH (09:51)
[2023-06-05] MEDS: Protonix 40MG Tablet PO SCH (09:51)
[2023-06-05] MEDS: LASIX 20 MG PO SCH (09:52)
[2023-06-05] MEDS: FEOSOL 325 MG PO SCH (09:52)
[2023-06-05] MEDS: Megace Susp PO SCH (09:53)
[2023-06-05] MEDS ORDERED: CYANOCOBALAMIN PO SCH (10:00)
[2023-06-05] MEDS ORDERED: FOLIC ACID PO SCH (10:00)
[2023-06-05] MEDS ORDERED: NON-FORMULARY ITEM (Potassium Chloride [Klor-Con M10] 10 MEQ Tab.Er.Prt) PO SCH (10:00)
[2023-06-05] MEDS ORDERED: [UNRECOGNIZED DRUG - OTHER] PO SCH (10:00)
[2023-06-05] MEDS ORDERED: NON-FORMULARY ITEM (Apixaban [Eliquis] 5 MG Tablet) PO SCH (10:00)
[2023-06-05] MEDS ORDERED: NON-FORMULARY ITEM (Methenamine Hippurate [Methenamine Hippurate] 1 GM Tablet) PO SCH (10:00)
[2023-06-05] MEDS ORDERED: NON-FORMULARY ITEM (Cholecalciferol (Vitamin D3) [Vitamin D3] 50 MCG Capsule) PO SCH (10:00)
[2023-06-05] MEDS ORDERED: ENOXAPARIN SODIUM SQ SCH (10:00)
[2023-06-05] MEDS ORDERED: MEGESTROL ACETATE PO SCH (10:00)
--- NOTE | 2023-06-05 12:05 | PCM.NOTE ---
Date and Time: 06/05/23 1200 Subjective Assessment: Mr Sumner is an 83-year-old with multiple medical problems including atrial fibrillation with a pacemaker on Eliquis, hypertension, congestive heart failure, COPD previously on hospice. He presented in the ER on 06/03 with complaints of sudden onset feeling of weakness, fatigue, tiredness, along with fever and chills around 3:30 PM with associated with abdominal pain. Patient has a temperature of 100.6 on presentation in the ER. Complaining of generalized abdominal pain especially on the left side with associated darkening of urine. Patient has indwelling catheter because of neurogenic bladder, scheduled to see urologist later this month. Patient reports having similar symptoms in the past with UTI. Denies any chest pain palpitations or shortness of breath. No cough congestion or URI symptoms reported. Denies any known sick contact. Pt was started on Rocephin IV, IVF. Jardiance held at this time. Kerr changed in ER per staff. Lasix held this AM due to hypotension. Pt does appear to have some DENNIS, continue IVF. He is feeling much better today he reports. Awaiting BC x2 and UC results. He denies CP, SOB, Abd. pain, N/V/D today. - Review of Systems Constitutional: No Fever, No Chills Eyes: No Symptoms Ears, Nose, & Throat: No Symptoms Respiratory: No Cough, No Short Of Breath Cardiac: No Chest Pain, No Edema, No Syncope Abdominal/Gastrointestinal: No Abdominal Pain, No Nausea, No Vomiting, No Diarrhea Genitourinary Symptoms: No Dysuria Musculoskeletal: No Back Pain, No Neck Pain Skin: No Rash Neurological: No Dizziness, No Focal Weakness, No Sensory Changes Psychological: No Symptoms Endocrine: No Symptoms Hematologic/Lymphatic: No Symptoms Immunological/Allergic: No Symptoms Objective Exam General Appearance: no apparent distress, alert Neurologic Exam: alert, oriented x 3, cooperative, normal mood/affect, nml cerebellar function, sensation nml, No motor deficits Skin Exam: normal color, warm, dry Eye Exam: PERRL, EOMI, eyes nml inspection Ears, Nose, Throat Exam: normal ENT inspection, pharynx normal, moist mucous membranes Neck Exam: normal inspection, non-tender, supple, full range of motion Respiratory Exam: normal breath sounds, lungs clear, No respiratory distress Cardiovascular Exam: regular rate/rhythm, normal heart sounds Gastrointestinal/Abdomen Exam: soft, No tenderness, No mass Extremity Exam: normal inspection, normal range of motion Back Exam: normal inspection, normal range of motion, No CVA tenderness, No vertebral tenderness Male Genitalia Exam: deferred Rectal Exam: deferred Objective Data Vital Signs: Vital Signs - 24 hr Temp Pulse Resp BP BP Pulse Ox 06/05/23 11:55 97.3 F 74 16 100/65 97 06/05/23 11:25 80 16 98 06/05/23 08:00 96.7 F 82 16 101/65 99 06/05/23 03:47 96.8 F 81 18 80/52 96 06/05/23 03:39 96 06/05/23 03:37 82 16 96 06/05/23 01:00 97 06/05/23 00:16 97.0 F 82 16 93/64 96 06/04/23 23:33 95 06/04/23 23:30 81 101/69 97 06/04/23 23:00 79 109/75 96 06/04/23 22:30 80 103/69 97 06/04/23 22:00 79 108/70 96 06/04/23 21:50 97 06/04/23 21:43 97 06/04/23 21:00 90 97/71 95 06/04/23 20:30 91 H 16 108/67 97 06/04/23 19:50 100.6 F 91 H 18 119/71 95 Pain Assessment - Last Documented Pain Intensity 0 Intake and Output: Intake & Output 06/03/23 06/04/23 06/05/23 06/06/23 11:59 11:59 11:59 11:59 Intake Total 855 Output Total 350 Balance 505 Weight 54.8 kg Lab Results: Lab Results-Last 24 Hours 06/04/23 06/04/23 06/04/23 Range/Units 20:30 20:30 20:30 WBC 10.6 H (4.0-10.5) x10^3/uL RBC 4.64 (4.1-5.6) x10^6/uL Hgb 13.2 (12.5-18.0) g/dL Hct 41.3 L (42-50) % MCV 89.0 (78-100) fL MCH 28.4 (26-32) pg MCHC 32.0 (32-36) g/dL RDW 14.6 H (11.5-14.0) % Plt Count 201 (150-450) x10^3/uL MPV 9.5 (7.5-11.0) fL Gran % 82.7 H (36.0-66.0) % Immature Gran % (Auto) 0.6 H (0.00-0.4) % Nucleat RBC Rel Count 0.0 (0.00-0.1) % Eos # (Auto) 0.03 (0-0.5) x10^3/uL Immature Gran # (Auto) 0.06 H (0.00-0.03) x10^3u/L Absolute Lymphs (auto) 0.71 L (1.0-4.6) x10^3/uL Absolute Monos (auto) 0.97 (0.0-1.3) x10^3/uL Absolute Nucleated RBC 0.00 (0.00-0.01) x10^3u/L Lymphocytes % 6.7 L (24.0-44.0) % Monocytes % 9.1 (0.0-12.0) % Eosinophils % 0.3 (0.00-5.0) % Basophils % 0.6 (0.0-0.4) % Absolute Granulocytes 8.78 H (1.4-6.9) x10^3/uL Basophils # 0.06 (0-0.4) x10^3/uL Sodium 130 L (135-145) mmol/L Potassium 3.9 (3.5-5.1) mmol/L Chloride 100 (98-107) mmol/L Carbon Dioxide 17 L (22-30) mmol/L Anion Gap 17.8 H (5-15) MEQ/L BUN 26 H (9-20) mg/dL Creatinine 1.37 H (0.66-1.25) mg/dL Estimated GFR 51.8 ML/MIN Glucose 110 H (74-106) mg/dL Lactic Acid (0.4-2.0) Calcium 8.4 (8.4-10.2) mg/dL Total Bilirubin 0.60 (0.2-1.3) mg/dL AST 26 (17-59) U/L ALT 20 (0-50) U/L Alkaline Phosphatase 139 H (38-126) U/L Serum Total Protein 6.8 (6.3-8.2) g/dL Albumin 3.9 (3.5-5.0) g/dL Procalcitonin 0.171 H (0.030-0.080) ng/mL Urine Color (Yellow) Urine Appearance (Clear) Urine pH (4.6-8.0) Ur Specific [place] (1.005-1.030) Urine Protein (Negative) Urine Glucose (UA) (Negative) mg/dL Urine Ketones (Negative) Urine Blood (Negative) Urine Nitrite (Negative) Urine Bilirubin (Negative) Urine Urobilinogen (0.2) mg/dL Ur Leukocyte Esterase (Negative) U Hyaline Cast (Auto) (0-2) /LPF Urine Microscopic RBC (0-5) /HPF Urine Microscopic WBC (0-5) /HPF Ur Epithelial Cells (None Seen) /HPF Urine Bacteria (None Seen) /HPF Urine Culture Reflexed (NO) 06/04/23 06/04/23 06/05/23 Range/Units 20:52 21:00 06:55 WBC 6.7 (4.0-10.5) x10^3/uL RBC 4.35 (4.1-5.6) x10^6/uL Hgb 12.2 L (12.5-18.0) g/dL Hct 39.3 L (42-50) % MCV 90.3 (78-100) fL MCH 28.0 (26-32) pg MCHC 31.0 L (32-36) g/dL RDW 14.7 H (11.5-14.0) % Plt Count 190 (150-450) x10^3/uL MPV 8.9 (7.5-11.0) fL Gran % 69.6 H (36.0-66.0) % Immature Gran % (Auto) 1.1 H (0.00-0.4) % Nucleat RBC Rel Count 0.0 (0.00-0.1) % Eos # (Auto) 0.09 (0-0.5) x10^3/uL Immature Gran # (Auto) 0.07 H (0.00-0.03) x10^3u/L Absolute Lymphs (auto) 0.97 L (1.0-4.6) x10^3/uL Absolute Monos (auto) 0.81 (0.0-1.3) x10^3/uL Absolute Nucleated RBC 0.00 (0.00-0.01) x10^3u/L Lymphocytes % 14.6 L (24.0-44.0) % Monocytes % 12.2 H (0.0-12.0) % Eosinophils % 1.4 (0.00-5.0) % Basophils % 1.1 (0.0-0.4) % Absolute Granulocytes 4.64 (1.4-6.9) x10^3/uL Basophils # 0.07 (0-0.4) x10^3/uL Sodium (135-145) mmol/L Potassium (3.5-5.1) mmol/L Chloride (98-107) mmol/L Carbon Dioxide (22-30) mmol/L Anion Gap (5-15) MEQ/L BUN (9-20) mg/dL Creatinine (0.66-1.25) mg/dL Estimated GFR ML/MIN Glucose (74-106) mg/dL Lactic Acid 1.9 (0.4-2.0) Calcium (8.4-10.2) mg/dL Total Bilirubin (0.2-1.3) mg/dL AST (17-59) U/L ALT (0-50) U/L Alkaline Phosphatase (38-126) U/L Serum Total Protein (6.3-8.2) g/dL Albumin (3.5-5.0) g/dL Procalcitonin (0.030-0.080) ng/mL Urine Color Other A (Yellow) Urine Appearance Turbid A (Clear) Urine pH 5.5 (4.6-8.0) Ur Specific [place] 1.015 (1.005-1.030) Urine Protein 100 A (Negative) Urine Glucose (UA) Negative (Negative) mg/dL Urine Ketones Negative (Negative) Urine Blood Large A (Negative) Urine Nitrite Positive A (Negative) Urine Bilirubin Negative (Negative) Urine Urobilinogen 0.2 (0.2) mg/dL Ur Leukocyte Esterase Large A (Negative) U Hyaline Cast (Auto) 20-50 (0-2) /LPF Urine Microscopic RBC 11-20 A (0-5) /HPF Urine Microscopic WBC >100 A (0-5) /HPF Ur Epithelial Cells Rare (None Seen) /HPF Urine Bacteria Many A (None Seen) /HPF Urine Culture Reflexed ORDERED SEPARATELY (NO) 06/05/23 Range/Units 06:55 WBC (4.0-10.5) x10^3/uL RBC (4.1-5.6) x10^6/uL Hgb (12.5-18.0) g/dL Hct (42-50) % MCV (78-100) fL MCH (26-32) pg MCHC (32-36) g/dL RDW (11.5-14.0) % Plt Count (150-450) x10^3/uL MPV (7.5-11.0) fL Gran % (36.0-66.0) % Immature Gran % (Auto) (0.00-0.4) % Nucleat RBC Rel Count (0.00-0.1) % Eos # (Auto) (0-0.5) x10^3/uL Immature Gran # (Auto) (0.00-0.03) x10^3u/L Absolute Lymphs (auto) (1.0-4.6) x10^3/uL Absolute Monos (auto) (0.0-1.3) x10^3/uL Absolute Nucleated RBC (0.00-0.01) x10^3u/L Lymphocytes % (24.0-44.0) % Monocytes % (0.0-12.0) % Eosinophils % (0.00-5.0) % Basophils % (0.0-0.4) % Absolute Granulocytes (1.4-6.9) x10^3/uL Basophils # (0-0.4) x10^3/uL Sodium 136 (135-145) mmol/L Potassium 3.7 (3.5-5.1) mmol/L Chloride 105 (98-107) mmol/L Carbon Dioxide 23 (22-30) mmol/L Anion Gap 12.0 (5-15) MEQ/L BUN 26 H (9-20) mg/dL Creatinine 1.53 H (0.66-1.25) mg/dL Estimated GFR 45.4 ML/MIN Glucose 90 (74-106) mg/dL Lactic Acid (0.4-2.0) Calcium 8.2 L (8.4-10.2) mg/dL Total Bilirubin 0.30 (0.2-1.3) mg/dL AST 21 (17-59) U/L ALT 16 (0-50) U/L Alkaline Phosphatase 118 (38-126) U/L Serum Total Protein 6.3 (6.3-8.2) g/dL Albumin 3.5 (3.5-5.0) g/dL Procalcitonin (0.030-0.080) ng/mL Urine Color (Yellow) Urine Appearance (Clear) Urine pH (4.6-8.0) Ur Specific [place] (1.005-1.030) Urine Protein (Negative) Urine Glucose (UA) (Negative) mg/dL Urine Ketones (Negative) Urine Blood (Negative) Urine Nitrite (Negative) Urine Bilirubin (Negative) Urine Urobilinogen (0.2) mg/dL Ur Leukocyte Esterase (Negative) U Hyaline Cast (Auto) (0-2) /LPF Urine Microscopic RBC (0-5) /HPF Urine Microscopic WBC (0-5) /HPF Ur Epithelial Cells (None Seen) /HPF Urine Bacteria (None Seen) /HPF Urine Culture Reflexed (NO) Radiology Exams: Radiology Procedures Category Date Time Status ABDOMEN AND PELVIS W/0 CONTRAS [CT] Stat Exams 06/04/23 21:36 Completed Assessment/Plan (1) Sepsis due to urinary tract infection Current Visit: Yes Status: Acute Assessment & Plan: - WBC 10.6 on admisson - Temp 100.6 on admission - HR > 90 on admission - lactate 1.9 - + Complicated UTI - NS @ 125 gave in ER and ceftriaxone - NS @ 50ml/h continued on unit - and BC x2 pending - Hold jardiance d/t risk of UTI's - Tele Code(s): A41.9 - SEPSIS, UNSPECIFIED ORGANISM; N39.0 - URINARY TRACT INFECTION, SITE NOT SPECIFIED (2) Complicated UTI (urinary tract infection) Current Visit: Yes Status: Acute Assessment & Plan: - Ceftriaxone IV - Chronic indwelling kerr - Kerr changed in ER per staff - Pt has f/u appointment with urology this month - and BC X2 pending. Code(s): N39.0 - URINARY TRACT INFECTION, SITE NOT SPECIFIED (3) Enteritis Current Visit: Yes Status: Acute Assessment & Plan: - denies any stomach pain today. - denies N/V/D. - CT abd/ pelvis 06/04 Impression: 1. 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 2. Again CT features favoring small bowel enteritis and moderate diffuse fecal stasis. 3. Chronic findings including pulmonary emphysema, moderate sized hiatal hernia, left renal punctate calculus, left hydronephrosis/hydroureter, Kerr balloon catheter in situ, arteriosclerotic disease, and chronic bony findings. - IVF - analgesics - colace for fecal stasis added - no temp today - Consider stool sample if diarrhea begins Code(s): K52.9 - NONINFECTIVE GASTROENTERITIS AND COLITIS, UNSPECIFIED (4) DENNIS (acute kidney injury) Current Visit: No Status: Acute Assessment & Plan: Blood pressure under good control, somewhat hypotensive due to infection 1. NS IVFs 2. Defer RITIKA/ARB 3. Monitor blood pressure readings Code(s): N17.9 - ACUTE KIDNEY FAILURE, UNSPECIFIED (5) Fever Current Visit: No Status: Acute Assessment & Plan: - tylenol PRN - No fever since admission. Code(s): R50.9 - FEVER, UNSPECIFIED (6) Hypotension Current Visit: Yes Status: Acute Assessment & Plan: - this am BP 80/52 - Held lasix - Continue to monitor. VTE: Eliquis PPI: Pantoprazole Code status: full Next of KIN: D/C plan: when UC is back Code(s): I95.9 - HYPOTENSION, UNSPECIFIED
[2023-06-05] MEDS: Docusate Sodium 100 MG PO SCH (21:22)
[2023-06-05] MEDS: MELATONIN PO PRN (21:49)
[2023-06-06 08:09] LABS: Hematocrit 39.9 % (42-50); Hemoglobin 12.5 g/dL (12.5-18.0); Mean Cell Volume 90.3 fL (78-100); Mean Corpuscular Hemoglobin 28.3 pg (26-32); Mean Corpuscular Hgb Concent. 31.3 g/dL (32-36); Mean Platelet Volume 9.4 fL (7.5-11.0); Platelet Count 202 x10^3/uL (150-450); Red Blood Count 4.42 x10^6/uL (4.1-5.6); Red Cell Distribution Width 14.6 % (11.5-14.0); White Blood Count 5.8 x10^3/uL (4.0-10.5)
[2023-06-06 08:24] LABS: ALBUMIN 3.3 g/dL (3.5-5.0); ANION GAP 11.5 MEQ/L (5-15); BILIRUBIN,TOTAL 0.1 mg/dL (0.2-1.3); Calcium 8.5 mg/dL (8.4-10.2); Creatinine 1 1.48 mg/dL (0.66-1.25); EST GLOMERULAR FILTRATION RATE 47.2 ML/MIN; Total Protein 6.2 g/dL (6.3-8.2)
--- NOTE | 2023-06-06 09:29 | PCM.NOTE ---
Date and Time: 06/06/23923 Subjective Assessment: 06/05/23 Mr Sumner is an 83-year-old with multiple medical problems including atrial fibrillation with a pacemaker on Eliquis, hypertension, congestive heart failure, COPD previously on hospice. He presented in the ER on 06/03 with complaints of sudden onset feeling of weakness, fatigue, tiredness, along with fever and chills around 3:30 PM with associated with abdominal pain. Patient has a temperature of 100.6 on presentation in the ER. Complaining of generalized abdominal pain especially on the left side with associated darkening of urine. Patient has indwelling catheter because of neurogenic bladder, scheduled to see urologist later this month. Patient reports having similar symptoms in the past with UTI. Denies any chest pain palpitations or shortness of breath. No cough congestion or URI symptoms reported. Denies any known sick contact. Pt was started on Rocephin IV, IVF. Jardiance held at this time. Kerr changed in ER per staff. Lasix held this AM due to hypotension. Pt does appear to have some DENNIS, continue IVF. He is feeling much better today he reports. Awaiting BC x2 and UC results. He denies CP, SOB, Abd. pain, N/V/D today. 06/06/23 Pt resting in bed. He states he feels fine. Still awaiting UC and BCx2 results. DENNIS not improving much will increase IV fluids to 75 ml/hr. BP 86/64 held Lasix this AM. Pt denies CP, SOB, abd. pain, dysuria, N/V/D. - Review of Systems Constitutional: No Fever, No Chills Eyes: No Symptoms Ears, Nose, & Throat: No Symptoms Respiratory: No Cough, No Short Of Breath Cardiac: No Chest Pain, No Edema, No Syncope Abdominal/Gastrointestinal: No Abdominal Pain, No Nausea, No Vomiting, No Diarrhea Genitourinary Symptoms: No Dysuria Musculoskeletal: No Back Pain, No Neck Pain Skin: No Rash Neurological: No Dizziness, No Focal Weakness, No Sensory Changes Psychological: No Symptoms Endocrine: No Symptoms Hematologic/Lymphatic: No Symptoms Immunological/Allergic: No Symptoms Objective Exam General Appearance: no apparent distress, alert Neurologic Exam: alert, oriented x 3, cooperative, normal mood/affect, nml cerebellar function, sensation nml, No motor deficits Skin Exam: normal color, warm, dry Eye Exam: PERRL, EOMI, eyes nml inspection Ears, Nose, Throat Exam: normal ENT inspection, pharynx normal, moist mucous membranes Neck Exam: normal inspection, non-tender, supple, full range of motion Respiratory Exam: normal breath sounds, lungs clear, No respiratory distress Cardiovascular Exam: regular rate/rhythm, normal heart sounds Gastrointestinal/Abdomen Exam: soft, No tenderness, No mass Extremity Exam: normal inspection, normal range of motion Back Exam: normal inspection, normal range of motion, No CVA tenderness, No vertebral tenderness Male Genitalia Exam: deferred Rectal Exam: deferred Objective Data Vital Signs: Vital Signs - 24 hr Temp Pulse Resp BP Pulse Ox 06/06/23 07:25 97.5 F 84 16 86/64 95 06/06/23 07:11 78 18 95 06/06/23 04:00 98.2 F 81 19 102/57 99 06/06/23 00:00 98.5 F 42 L 17 85/53 96 06/05/23 19:56 98.6 F 80 16 94/58 98 06/05/23 19:38 79 16 96 06/05/23 16:00 97.7 F 86 17 102/64 99 06/05/23 11:55 97.3 F 74 16 86/56 97 06/05/23 11:25 80 16 98 Pain Assessment - Last Documented Pain Intensity 0 Intake and Output: Intake & Output 06/03/23 06/04/23 06/05/23 06/06/23 11:59 11:59 11:59 11:59 Intake Total 855 2976 Output Total 350 2800 Balance 505 176 Weight 54.8 kg Lab Results: Lab Results-Last 24 Hours 06/06/23 06/06/23 Range/Units 07:50 07:50 WBC 5.8 (4.0-10.5) x10^3/uL RBC 4.42 (4.1-5.6) x10^6/uL Hgb 12.5 (12.5-18.0) g/dL Hct 39.9 L (42-50) % MCV 90.3 (78-100) fL MCH 28.3 (26-32) pg MCHC 31.3 L (32-36) g/dL RDW 14.6 H (11.5-14.0) % Plt Count 202 (150-450) x10^3/uL MPV 9.4 (7.5-11.0) fL Sodium 139 (135-145) mmol/L Potassium 4.0 (3.5-5.1) mmol/L Chloride 110 H (98-107) mmol/L Carbon Dioxide 22 (22-30) mmol/L Anion Gap 11.5 (5-15) MEQ/L BUN 32 H (9-20) mg/dL Creatinine 1.48 H (0.66-1.25) mg/dL Estimated GFR 47.2 ML/MIN Glucose 94 (74-106) mg/dL Calcium 8.5 (8.4-10.2) mg/dL Total Bilirubin 0.10 L (0.2-1.3) mg/dL AST 23 (17-59) U/L ALT 15 (0-50) U/L Alkaline Phosphatase 107 (38-126) U/L Serum Total Protein 6.2 L (6.3-8.2) g/dL Albumin 3.3 L (3.5-5.0) g/dL Radiology Exams: Radiology Procedures Category Date Time Status ABDOMEN AND PELVIS W/0 CONTRAS [CT] Stat Exams 06/04/23 21:36 Completed Assessment/Plan (1) Sepsis due to urinary tract infection Current Visit: Yes Status: Acute Code(s): A41.9 - SEPSIS, UNSPECIFIED ORGANISM; N39.0 - URINARY TRACT INFECTION, SITE NOT SPECIFIED (2) Complicated UTI (urinary tract infection) Current Visit: Yes Status: Acute Code(s): N39.0 - URINARY TRACT INFECTION, SITE NOT SPECIFIED (3) Enteritis Current Visit: Yes Status: Acute Code(s): K52.9 - NONINFECTIVE GASTROENTERITIS AND COLITIS, UNSPECIFIED (4) DENNIS (acute kidney injury) Current Visit: No Status: Acute Code(s): N17.9 - ACUTE KIDNEY FAILURE, UNSPECIFIED (5) Fever Current Visit: No Status: Acute Code(s): R50.9 - FEVER, UNSPECIFIED (6) Hypotension Current Visit: Yes Status: Acute Assessment & Plan: (1) Sepsis due to urinary tract infection Current Visit: Yes Status: Acute Assessment & Plan: - WBC 10.6 on admisson - Temp 100.6 on admission - HR > 90 on admission - lactate 1.9 - + Complicated UTI - NS @ 125 gave in ER and ceftriaxone - NS @ 50ml/h continued on unit - UC and BC x2 pending - Hold jardiance d/t risk of UTI's - Tele Code(s): A41.9 - SEPSIS, UNSPECIFIED ORGANISM; N39.0 - URINARY TRACT INFECTION, SITE NOT SPECIFIED (2) Complicated UTI (urinary tract infection) Current Visit: Yes Status: Acute Assessment & Plan: - Ceftriaxone IV - Chronic indwelling kerr - Kerr changed in ER per staff - Pt has f/u appointment with urology this month - UC and BC X2 pending. 06/05 - WBC 5.8- normal Code(s): N39.0 - URINARY TRACT INFECTION, SITE NOT SPECIFIED (3) Enteritis Current Visit: Yes Status: Acute Assessment & Plan: - denies any stomach pain today. - denies N/V/D. - CT abd/ pelvis 06/04 Impression: 1. 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 2. Again CT features favoring small bowel enteritis and moderate diffuse fecal stasis. 3. Chronic findings including pulmonary emphysema, moderate sized hiatal hernia, left renal punctate calculus, left hydronephrosis/hydroureter, Kerr balloon catheter in situ, arteriosclerotic disease, and chronic bony findings. - IVF - analgesics - colace for fecal stasis added - no temp today - Consider stool sample if diarrhea begins Code(s): K52.9 - NONINFECTIVE GASTROENTERITIS AND COLITIS, UNSPECIFIED (4) DENNIS (acute kidney injury) Current Visit: No Status: Acute Assessment & Plan: Blood pressure under good control, somewhat hypotensive due to infection 1. NS IVFs 2. Defer RITIKA/ARB 3. Monitor blood pressure readings 06/05 - creat. 1.48- will increase IV fluids to 75 ml/hr Code(s): N17.9 - ACUTE KIDNEY FAILURE, UNSPECIFIED (5) Fever Current Visit: No Status: Acute Assessment & Plan: - tylenol PRN - No fever since admission. Code(s): R50.9 - FEVER, UNSPECIFIED (6) Hypotension Current Visit: Yes Status: Acute Assessment & Plan: - this am BP 80/52 - Held lasix 06/05 - BP this AM 86/64 - Lasix held - Continue to monitor. VTE: Eliquis PPI: Pantoprazole Code status: full Next of KIN: Camilo Lezama [phone] D/C plan: when UC is back Code(s): I95.9 - HYPOTENSION, UNSPECIFIED
[2023-06-06] MEDS: TYLENOL 325 MG PO PRN (18:09)
[2023-06-07 06:15] LABS: Hematocrit 38.7 % (42-50); Hemoglobin 12.1 g/dL (12.5-18.0); Mean Cell Volume 90.6 fL (78-100); Mean Corpuscular Hemoglobin 28.3 pg (26-32); Mean Corpuscular Hgb Concent. 31.3 g/dL (32-36); Mean Platelet Volume 9.4 fL (7.5-11.0); Platelet Count 190 x10^3/uL (150-450); Red Blood Count 4.27 x10^6/uL (4.1-5.6); Red Cell Distribution Width 14.6 % (11.5-14.0); White Blood Count 5.9 x10^3/uL (4.0-10.5)
[2023-06-07 06:29] LABS: ALBUMIN 3.4 g/dL (3.5-5.0); ALKALINE PHOSPHATASE 104 U/L (38-126); ANION GAP 13.1 MEQ/L (5-15); BILIRUBIN,TOTAL < 0.10 mg/dL (0.2-1.3); BLOOD UREA NITROGEN 24 mg/dL (9-20); CHLORIDE 109 mmol/L (98-107); Calcium 8.2 mg/dL (8.4-10.2); Carbon Dioxide 18 mmol/L (22-30); Creatinine 1 1.42 mg/dL (0.66-1.25); EST GLOMERULAR FILTRATION RATE 49.6 ML/MIN; Glucose 87 mg/dL (74-106); SGOT/AST 21 U/L (17-59); SGPT/ALT 14 U/L (0-50); SODIUM 136 mmol/L (135-145); Total Protein 6.2 g/dL (6.3-8.2)
[2023-06-07 07:32] VITALS: BP 126/77; PULSE 85; RESP 16; TEMP 97.3; O2SAT 97
--- NOTE | 2023-06-07 10:00 | PCM.DS ---
Discharge Summary Date of Admission: 06/04/23 23:44 Date of Discharge: 06/07/23 Admitting Physician: KARINA BENEDICT MD Primary Care Provider: STEFANIA TOLEDO Allergies Allergies fluoxetine HCl [From Prozac] Allergy (Verified 06/04/23 20:23) Hospital Summary - Hospital Course Hospital Course: 06/05/23 Mr Sumner is an 83-year-old with multiple medical problems including atrial fibrillation with a pacemaker on Eliquis, hypertension, congestive heart failure, COPD previously on hospice. He presented in the ER on 06/03 with complaints of sudden onset feeling of weakness, fatigue, tiredness, along with fever and chills around 3:30 PM with associated with abdominal pain. Patient has a temperature of 100.6 on presentation in the ER. Complaining of generalized abdominal pain especially on the left side with associated darkening of urine. Patient has indwelling catheter because of neurogenic bladder, scheduled to see urologist later this month. Patient reports having similar symptoms in the past with UTI. Denies any chest pain palpitations or shortness of breath. No cough congestion or URI symptoms reported. Denies any known sick contact. Pt was started on Rocephin IV, IVF. Jardiance held at this time. Kerr changed in ER per staff. Lasix held this AM due to hypotension. Pt does appear to have some DENNIS, continue IVF. He is feeling much better today he reports. Awaiting BC x2 and UC results. He denies CP, SOB, Abd. pain, N/V/D today. 06/06/23 Pt resting in bed. He states he feels fine. Still awaiting UC and BCx2 results. DENNIS not improving much will increase IV fluids to 75 ml/hr. BP 86/64 held Lasix this AM. Pt denies CP, SOB, abd. pain, dysuria, N/V/D. 06/06 Pt resting in bed. He states he feels well and ready to go home. UC results are back and will sent home on Levaquin. BC x2 negative. DENNIS improved. Will need to f/u with PCP Op for f/u labs. Will need to f/u with urology as scheduled. He denies CP, SOB, abd. pain, N/V/D. - Vitals & Intake/Output Vital Signs: Vital Signs Temperature 97.3 F 06/07/23 07:32 Pulse Rate 85 06/07/23 07:32 Respiratory Rate 16 06/07/23 07:32 Blood Pressure 126/77 06/07/23 07:32 O2 Sat by Pulse Oximetry 97 06/07/23 07:32 Intake & Output: Intake & Output 06/04/23 06/05/23 06/06/23 06/07/23 11:59 11:59 11:59 11:59 Intake Total 855 2976 3306 Output Total 350 4500 2150 Balance 505 -1524 1156 Weight 54.8 kg - Lab Result Diagrams: 06/07/23 05:20 06/07/23 05:20 Lab Results-Last 24 Hrs: Lab Results-Last 24 Hours 06/07/23 06/07/23 Range/Units 05:20 05:20 WBC 5.9 (4.0-10.5) x10^3/uL RBC 4.27 (4.1-5.6) x10^6/uL Hgb 12.1 L (12.5-18.0) g/dL Hct 38.7 L (42-50) % MCV 90.6 (78-100) fL MCH 28.3 (26-32) pg MCHC 31.3 L (32-36) g/dL RDW 14.6 H (11.5-14.0) % Plt Count 190 (150-450) x10^3/uL MPV 9.4 (7.5-11.0) fL Sodium 136 (135-145) mmol/L Potassium 4.0 (3.5-5.1) mmol/L Chloride 109 H (98-107) mmol/L Carbon Dioxide 18 L (22-30) mmol/L Anion Gap 13.1 (5-15) MEQ/L BUN 24 H (9-20) mg/dL Creatinine 1.42 H (0.66-1.25) mg/dL Estimated GFR 49.6 ML/MIN Glucose 87 (74-106) mg/dL Calcium 8.2 L (8.4-10.2) mg/dL Total Bilirubin < 0.10 L (0.2-1.3) mg/dL AST 21 (17-59) U/L ALT 14 (0-50) U/L Alkaline Phosphatase 104 (38-126) U/L Serum Total Protein 6.2 L (6.3-8.2) g/dL Albumin 3.4 L (3.5-5.0) g/dL Micro Results-Entire Visit: Microbiology 06/04/23 20:52 Urine Culture - Final Urine, Indwelling Catheter Enterobacter Clocae Complex 06/04/23 21:12 Blood Culture - Preliminary Blood 06/04/23 21:05 Blood Culture - Preliminary Blood - Procedures and Test Procedures and Tests throughout Hospitalization: Therapy Orders & Screens 06/05/23 00:13 PT Eval & Treat ( Order) ONCE Reason for Eval:: weakness Diagnosis: uti Respiratory Therapy Consult ONCE Comment: Reason For Exam: Diagnosis: uti 06/05/23 10:39 Respiratory Therapy Assessment DAILY Comment: Diagnosis: uti Discharge Exam General Appearance: no apparent distress, alert Neurologic Exam: alert, oriented x 3, cooperative, normal mood/affect, nml cerebellar function, sensation nml, No motor deficits Eye Exam: PERRL, EOMI, eyes nml inspection Ears, Nose, Throat Exam: normal ENT inspection, pharynx normal, moist mucous membranes Neck Exam: normal inspection, non-tender, supple, full range of motion Respiratory Exam: normal breath sounds, lungs clear, No respiratory distress Cardiovascular Exam: regular rate/rhythm, normal heart sounds Gastrointestinal/Abdomen Exam: soft, No tenderness, No mass Male Genitalia Exam: deferred Rectal Exam: deferred Back Exam: normal inspection, normal range of motion, No CVA tenderness, No vertebral tenderness Extremity Exam: normal inspection, normal range of motion Skin Exam: normal color, warm, dry Final Diagnosis/Problem List - Final Discharge Diagnosis/Problem (1) Sepsis due to urinary tract infection Current Visit: Yes Status: Acute Code(s): A41.9 - SEPSIS, UNSPECIFIED ORGANISM; N39.0 - URINARY TRACT INFECTION, SITE NOT SPECIFIED (2) Complicated UTI (urinary tract infection) Current Visit: Yes Status: Acute Code(s): N39.0 - URINARY TRACT INFECTION, SITE NOT SPECIFIED (3) Enteritis Current Visit: Yes Status: Acute Code(s): K52.9 - NONINFECTIVE GASTROENTERITIS AND COLITIS, UNSPECIFIED (4) DENNIS (acute kidney injury) Current Visit: No Status: Acute Code(s): N17.9 - ACUTE KIDNEY FAILURE, UNSPECIFIED (5) Fever Current Visit: No Status: Acute Code(s): R50.9 - FEVER, UNSPECIFIED (6) Hypotension Current Visit: Yes Status: Acute Assessment & Plan: (1) Sepsis due to urinary tract infection Current Visit: Yes Status: Acute Assessment & Plan: - WBC 10.6 on admisson - Temp 100.6 on admission - HR > 90 on admission - lactate 1.9 - + Complicated UTI - NS @ 125 gave in ER and ceftriaxone - NS @ 50ml/h continued on unit - UC and BC x2 pending - Hold jardiance d/t risk of UTI's - Tele - BX x2 negative Code(s): A41.9 - SEPSIS, UNSPECIFIED ORGANISM; N39.0 - URINARY TRACT INFECTION, SITE NOT SPECIFIED (2) Complicated UTI (urinary tract infection) Current Visit: Yes Status: Acute Assessment & Plan: - Ceftriaxone IV - Chronic indwelling kerr - Kerr changed in ER per staff - Pt has f/u appointment with urology this month - UC and BC X2 pending. 06/05 - WBC 5.8- normal 06/06 - UC + for enterobactor clocae complex - Will d/c with levaquin - F/U with urology OP as scheduled- has upcoming appointment Code(s): N39.0 - URINARY TRACT INFECTION, SITE NOT SPECIFIED (3) Enteritis Current Visit: Yes Status: Acute Assessment & Plan: - denies any stomach pain today. - denies N/V/D. - CT abd/ pelvis 06/04 Impression: 1. 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 2. Again CT features favoring small bowel enteritis and moderate diffuse fecal stasis. 3. Chronic findings including pulmonary emphysema, moderate sized hiatal hernia, left renal punctate calculus, left hydronephrosis/hydroureter, Kerr balloon catheter in situ, arteriosclerotic disease, and chronic bony findings. - IVF - analgesics - colace for fecal stasis added - no temp today - Consider stool sample if diarrhea begins Code(s): K52.9 - NONINFECTIVE GASTROENTERITIS AND COLITIS, UNSPECIFIED (4) DENNIS (acute kidney injury) Current Visit: No Status: Acute Assessment & Plan: Blood pressure under good control, somewhat hypotensive due to infection 1. NS IVFs 2. Defer RITIKA/ARB 3. Monitor blood pressure readings 06/05 - creat. 1.48- will increase IV fluids to 75 ml/hr 06/06 -Creat 1.42- improved - F/u with PCP for repeat labs Code(s): N17.9 - ACUTE KIDNEY FAILURE, UNSPECIFIED (5) Fever Current Visit: No Status: Acute Assessment & Plan: - tylenol PRN - No fever since admission. Code(s): R50.9 - FEVER, UNSPECIFIED (6) Hypotension Current Visit: Yes Status: Acute Assessment & Plan: - this am BP 80/52 - Held lasix 06/05 - BP this AM 86/64 - Lasix held - Continue to monitor. 06/06 - BP improved today Code(s): I95.9 - HYPOTENSION, UNSPECIFIED - Discharge Discharge Date: 06/07/23 Disposition: Home, Self-Care Condition: Stable Prescriptions: Continue Venlafaxine HCl ER 75 mg [Effexor XR 75 MG] 225 mg PO DAILY Ferrous Sulfate [Iron] 325 mg PO DAILY Potassium Chloride [Klor-Con M10] 10 meq PO DAILY Metoprolol Tartrate 25 mg [Lopressor 25MG Tab] 12.5 mg PO DAILY Furosemide 20 mg [Lasix 20 mg] 20 mg PO DAILY Finasteride 5 mg [Proscar 5 MG] 5 mg PO DAILY Apixaban [Eliquis] 2.5 mg PO BID Cyanocobalamin/Folic Acid [Vitamin T89-Xbcfk Acid Tablet] 500 mcg PO DAILY Bupropion HCl Xl 150 mg [Wellbutrin XL 150 MG] 150 mg PO DAILY Cholecalciferol (Vitamin D3) [Vitamin D3] 50 mcg PO DAILY Sennosides [Vegetable Laxative] 2 tab PO DAILY PRN PRN PRN Reason: Constipation Polyethylene Glycol 3350 17 gm [Miralax Powder 17GM PACKET] 1 each PO DAILY Methenamine Hippurate 1 gm PO BID Megestrol Acetate 625 mg PO DAILY Empagliflozin [Jardiance] 10 mg PO DAILY Hydrocodone/Acetaminophen [Hydrocodone-Acetamin 7.5-325] 1 tablet PO QID PRN PRN Reason: Pain Sodium Phosphate,Pacific-Dibasic [Fleet Enema] 133 ml RC UD Bisacodyl 5 mg [Dulcolax 5 mg] 5 mg PO DAILY PRN PRN PRN Reason: Constipation Bisacodyl 10 mg [Dulcolax 10 MG SUPP] 10 mg RC UD Albuterol Sulfate [Proair Digihaler] 90 mcg IH QIDPRN PRN PRN Reason: Shortness Of Breath Zinc Oxide Ointment 30 gm 1 each .ROUTE UD Acetaminophen 500 mg [Tylenol Extra Strength 500 mg] 500 mg PO Q6HPRN PRN PRN Reason: Pain Additional Instructions: Take blood pressure at home before taking Lasix. If BP < 100/ 60 do not take. Follow up with: STEFANIA TOLEDO MD [Primary Care Provider] - 06/12/23 10:00 am
[2023-06-07] MEDS: JARDIANCE PO SCH (10:07)
== END 2023-06-07 10:53 | disposition home or self-care (01) ==
LOC: ED 19:40 → MED SURG 23:44
PROVIDERS: ADMIT Internal Medicine Nephrology; ATTEND Internal Medicine Nephrology
DX: A41.9 Sepsis, unspecified organism (principal); N39.0 Urinary tract infection, site not specified; K52.9 Noninfective gastroenteritis and colitis, unspecified; N17.9 Acute kidney failure, unspecified; R50.9 Fever, unspecified; I95.9 Hypotension, unspecified; E78.5 Hyperlipidemia, unspecified; I48.91 Unspecified atrial fibrillation; I12.9 Hypertensive chronic kidney disease with stage 1 through stage 4 chronic kidney disease, or unspecified chronic kidney disease; I50.9 Heart failure, unspecified; N18.9 Chronic kidney disease, unspecified; N31.9 Neuromuscular dysfunction of bladder, unspecified; E87.1 Hypo-osmolality and hyponatremia; Z79.01 Long term (current) use of anticoagulants; Z79.899 Other long term (current) drug therapy; Z20.828 Contact with and (suspected) exposure to other viral communicable diseases
CPT/HCPCS: 36415; 51702; 74176; 80053; 81001; 83605; 84145; 85025; 85027; 87040; 87077; 87086; 87186; 93268; 94760; 96365; 97161; 99285; G0378; Q3014; J0696; A9270-GY

== ENCOUNTER 2023-06-10 06:14 | Emergency (ER) | payer MEDICARE ==
[2023-06-10 06:33] VITALS: TEMP 98.4
[2023-06-10] MEDS ORDERED: Sodium Chloride 0.9% 1000 ML 1,000 ML ONE (06:50)
[2023-06-10] MEDS: Sodium Chloride 0.9% 1000 ML 1,000 ML IV SCH (06:52)
--- NOTE | 2023-06-10 06:58 | ERPHSYRPT ---
- History of Present Illness Source: patient Exam Limitations: no limitations Patient Subjective Stated Complaint: pt called ambulance for "uncontrolled movements" Triage Nursing Assessment: pt presents to ED via Medic 1, pt transferred pt from ems cot to ER cot via sheet pull, pt alert and oriented x3, skin pwd, pt c/o tremors that started around 0400, pt was recently d/c'd on thursday for a UTI. pt presents with a kerr that was placed last thursday, urine milky and thick in tubing or catheter. pt afebrile, pt currently still taking levaquin 750 mg once daily Timing/Duration: today Severity: moderate Modifying Factors: Improves With: nothing Associated Symptoms: denies symptoms Hx Tetanus, Diphtheria Vaccination/Date Given: No Hx Influenza Vaccination/Date Given: No Hx Pneumococcal Vaccination/Date Given: No Immunizations Up to Date: No <JAZMINE VALENTE - Last Filed: 06/10/23 06:49> <JUSTYN LONG - Last Filed: 06/10/23 08:44> - History of Present Illness Time Seen by Provider: 06/10/23 06:35 Physician History: Patient is a 83-year-old male with a history of neurogenic bladder, self catheterizes normally presents to our ED for evaluation of shakes/rigors. Reji ritter states that he awoke this morning at 4 AM with the symptoms. at bedside reports that patient was discharged from our hospital just 3 days ago after treatment for a urinary tract infection. Patient was admitted last for UTI. reports cultures and sensitivities resulted sensitive for Levaquin. Patient was discharged on Levaquin and had taken Levaquin for 3 days since his discharge. On exam nursing sepsis observed patient to have an indwelling Kerr catheter. The urine was purulent appearing. Patient denied pain. No fever. No nausea vomiting or diaphoresis. Patient's only symptom were shakes and rigors. Symptoms are mild to moderate in intensity. No specific worsening or improving factors. at bedside. They voiced no other complaints or concerns at this time. Portions of this note were created with voice recognition technology. There may be grammatical, spelling, punctuation or sound alike errors (JAZMINE VALENTE) Allergies/Adverse Reactions: fluoxetine HCl [From Prozac] Allergy (Verified 06/10/23 06:16) Home Medications: Venlafaxine HCl ER 75 mg [Effexor XR 75 MG] 225 mg PO DAILY 05/25/13 [History] Ferrous Sulfate [Iron] 325 mg PO DAILY 06/01/18 [History] Apixaban [Eliquis] 2.5 mg PO BID 09/26/22 [History] Cyanocobalamin/Folic Acid [Vitamin W97-Yulaz Acid Tablet] 500 mcg PO DAILY 09/26/22 [History] Finasteride 5 mg [Proscar 5 MG] 5 mg PO DAILY 09/26/22 [History] Furosemide 20 mg [Lasix 20 mg] 20 mg PO DAILY 09/26/22 [History] Metoprolol Tartrate 25 mg [Lopressor 25MG Tab] 12.5 mg PO DAILY 09/26/22 [History] Potassium Chloride [Klor-Con M10] 10 meq PO DAILY 09/26/22 [History] Acetaminophen 500 mg [Tylenol Extra Strength 500 mg] 500 mg PO Q6HPRN PRN 04/10/23 [History] Albuterol Sulfate [Proair Digihaler] 90 mcg IH QIDPRN PRN 04/10/23 [History] Bisacodyl 10 mg [Dulcolax 10 MG SUPP] 10 mg RC UD 04/10/23 [History] Bisacodyl 5 mg [Dulcolax 5 mg] 5 mg PO DAILY PRN PRN 04/10/23 [History] Bupropion HCl Xl 150 mg [Wellbutrin XL 150 MG] 150 mg PO DAILY 04/10/23 [History] Cholecalciferol (Vitamin D3) [Vitamin D3] 50 mcg PO DAILY 04/10/23 [History] Empagliflozin [Jardiance] 10 mg PO DAILY 04/10/23 [History] Hydrocodone/Acetaminophen [Hydrocodone-Acetamin 7.5-325] 1 tablet PO QID PRN 04/10/23 [History] Megestrol Acetate 625 mg PO DAILY 04/10/23 [History] Methenamine Hippurate 1 gm PO BID 04/10/23 [History] Polyethylene Glycol 3350 17 gm [Miralax Powder 17GM PACKET] 1 each PO DAILY 04/10/23 [History] Sennosides [Vegetable Laxative] 2 tab PO DAILY PRN PRN 04/10/23 [History] Sodium Phosphate,[place]-Dibasic [Fleet Enema] 133 ml RC UD 04/10/23 [History] Zinc Oxide Ointment 30 gm 1 each .ROUTE UD 04/10/23 [History] Travel Risk - International Travel Have you traveled outside of the country in past 3 weeks: No - Coronavirus Screening Are you exhibiting any of the following symptoms?: No Close contact with a COVID-19 positive Pt in past 14-21 Days: No - Vaccine Status Have you recieved a Covid-19 vaccination: Yes Clinical Team Lead: Moderna - Vaccination Dates Date of 2cond Vaccination (if applicable): 2020 <JAZMINE VALENTE - Last Filed: 06/10/23 06:49> - Review of Systems Constitutional: No Symptoms, No Fever, No Chills Eyes: No Symptoms Ears, Nose, & Throat: No Symptoms Respiratory: No Symptoms, No Cough, No Dyspnea Cardiac: No Symptoms, No Chest Pain, No Edema, No Syncope Abdominal/Gastrointestinal: No Symptoms, No Abdominal Pain, No Nausea, No Vomiting, No Diarrhea Genitourinary Symptoms: No Symptoms, No Dysuria Musculoskeletal: No Symptoms, No Back Pain, No Neck Pain Skin: No Symptoms, No Rash Neurological: No Symptoms, No Dizziness, No Focal Weakness, No Sensory Changes Psychological: No Symptoms Endocrine: No Symptoms Hematologic/Lymphatic: No Symptoms Immunological/Allergic: No Symptoms All Other Systems: Reviewed and Negative <JAZMINE VALENTE - Last Filed: 06/10/23 06:49> - Past Medical History Pertinent Past Medical History: Yes Neurological History: No Pertinent History ENT History: Cataracts Cardiac History: Arrhythmia Respiratory History: No Pertinent History Endocrine Medical History: No Pertinent History Musculoskeletal History: No Pertinent History GI Medical History: No Pertinent History History: Other Psycho-Social History: No Pertinent History Male Reproductive Disorders: Other Other Medical History: 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 PACEMAKER/DEFIBRILLIATOR. B ROSALIE. - Past Surgical History Past Surgical History: Yes Neuro Surgical History: No Pertinent History Cardiac: Pacemaker Respiratory: No Pertinent History Gastrointestinal: Other Genitourinary: No Pertinent History Musculoskeletal: Joint Replacement Male Surgical History: No Pertinent History Other Surgical History: kelly hip replacement, bariatic surgery - Social History Smoking Status: Never smoker How long have you smoked: never Exposure to second hand smoke: No Drug Use: none Patient Lives Alone: No <JAZMINE VALENTE Filed: 06/10/23 06:49> - Physical Exam General Appearance: no apparent distress, alert Eye Exam: PERRL/EOMI, eyes nml inspection Ears, Nose, Throat Exam: normal ENT inspection, moist mucous membranes Neck Exam: normal inspection, full range of motion Respiratory Exam: normal breath sounds, lungs clear, airway intact, No respiratory distress Cardiovascular Exam: regular rate/rhythm, normal heart sounds, normal peripheral pulses Gastrointestinal/Abdomen Exam: soft, normal bowel sounds, No tenderness, No mass Back Exam: normal inspection, normal range of motion, No CVA tenderness, No vertebral tenderness Extremity Exam: normal inspection, normal range of motion, pelvis stable Neurologic Exam: alert, oriented x 3, cooperative, normal mood/affect, sensation nml, No motor deficits Skin Exam: normal color, warm, dry, No rash Lymphatic Exam: No adenopathy SpO2 Interpretation: normal SpO2: 98 O2 Delivery: Room Air <JAZMINE VALENTE Filed: 06/10/23 06:49> - Nursing Vital Signs Nursing Vital Signs: Initial Vital Signs Temperature 98.4 F 06/10/23 06:15 Pulse Rate 90 06/10/23 06:15 Respiratory Rate 18 06/10/23 06:15 Blood Pressure 97/65 06/10/23 06:15 O2 Sat by Pulse Oximetry 99 06/10/23 06:15 Pain Scale Pain Intensity 0 - Course Nursing assessment & vital signs reviewed: Yes <JAZMINE VALENTE Filed: 06/10/23 06:49> Ordered Tests: Active Orders 24 hr Category Date Time Status Engineering Recruiter STAT Care 06/10/23 06:43 Active IV Insertion STAT Care 06/10/23 06:43 Active Pulse Oximetry (ED) STAT Care 06/10/23 06:43 Active BLOOD CULTURE Stat Lab 06/10/23 07:30 Received CBC W DIFF Stat Lab 06/10/23 06:52 Completed CMP Stat Lab 06/10/23 06:52 Completed CULTURE,URINE Stat Lab 06/10/23 06:40 Received Lactic Acid Stat Lab 06/10/23 07:15 Completed UA W/RFX UR CULTURE Stat Lab 06/10/23 06:40 Completed Medication Summary Generic Name Dose Route Start Last Admin Trade Name Pasquale PRN Reason Stop Dose Admin Sodium Chloride 1,000 mls @ 100 mls/hr 06/10/23 06:45 06/10/23 06:52 Sodium Chloride 0.9% 1000 Ml IV 07/10/23 06:44 100 mls/hr .Q10H AKHIL Administration Ceftriaxone Sodium 1 gm in 100 mls @ 200 mls/hr 06/10/23 08:16 06/10/23 08:35 Rocephin 1 Gm / 100 Ml Nacl IV 06/10/23 08:45 200 mls/hr STAT ONE 200 mls/hr Administration Discontinued Medications Generic Name Dose Route Start Last Admin Trade Name Pasquale PRN Reason Stop Dose Admin Fluconazole 150 mg 06/10/23 08:19 06/10/23 08:35 Fluconazole 150 Mg Tablet PO 06/10/23 08:20 150 mg STAT ONE Administration Ceftriaxone Sodium Confirm 06/10/23 08:23 Rocephin 1 Gm / 100 Ml Nacl Administered 06/10/23 08:24 Dose 1 gm in 100 mls @ ud IV .STK-MED ONE Lab/Rad Data: Laboratory Result Diagrams 06/10/23 06:52 06/10/23 06:52 Laboratory Results 06/10/23 06/10/23 06/10/23 Range/Units 07:35 07:15 06:52 WBC (4.0-10.5) x10^3/uL RBC (4.1-5.6) x10^6/uL Hgb (12.5-18.0) g/dL Hct (42-50) % MCV (78-100) fL MCH (26-32) pg MCHC (32-36) g/dL RDW (11.5-14.0) % Plt Count (150-450) x10^3/uL MPV (7.5-11.0) fL Gran % (36.0-66.0) % Immature Gran % (Auto) (0.00-0.4) % Nucleat RBC Rel Count (0.00-0.1) % Eos # (Auto) (0-0.5) x10^3/uL Immature Gran # (Auto) (0.00-0.03) x10^3u/L Absolute Lymphs (auto) (1.0-4.6) x10^3/uL Absolute Monos (auto) (0.0-1.3) x10^3/uL Absolute Nucleated RBC (0.00-0.01) x10^3u/L Lymphocytes % (24.0-44.0) % Monocytes % (0.0-12.0) % Eosinophils % (0.00-5.0) % Basophils % (0.0-0.4) % Absolute Granulocytes (1.4-6.9) x10^3/uL Basophils # (0-0.4) x10^3/uL Sodium 140 (135-145) mmol/L Potassium 4.1 (3.5-5.1) mmol/L Chloride 108 H (98-107) mmol/L Carbon Dioxide 21 L (22-30) mmol/L Anion Gap 15.3 H (5-15) MEQ/L BUN 33 H (9-20) mg/dL Creatinine 1.51 H (0.66-1.25) mg/dL Estimated GFR 46.1 ML/MIN Glucose 93 (74-106) mg/dL Lactic Acid 1.2 (0.4-2.0) Calcium 8.9 (8.4-10.2) mg/dL Total Bilirubin 0.20 (0.2-1.3) mg/dL AST 31 (17-59) U/L ALT 19 (0-50) U/L Alkaline Phosphatase 97 (38-126) U/L Serum Total Protein 6.7 (6.3-8.2) g/dL Albumin 3.6 (3.5-5.0) g/dL Urine Color (Yellow) Urine Appearance (Clear) Urine pH (4.6-8.0) Ur Specific [place] (1.005-1.030) Urine Protein (Negative) Urine Glucose (UA) (Negative) mg/dL Urine Ketones (Negative) Urine Blood (Negative) Urine Nitrite (Negative) Urine Bilirubin (Negative) Urine Urobilinogen (0.2) mg/dL Ur Leukocyte Esterase (Negative) U Hyaline Cast (Auto) (0-2) /LPF Urine Microscopic RBC (0-5) /HPF Urine Microscopic WBC (0-5) /HPF Ur Epithelial Cells (None Seen) /HPF Urine Bacteria (None Seen) /HPF Urine Yeast (Budding) (None Seen) /HPF Urine Culture Reflexed (NO) Influenza Type A Ag NEGATIVE (NEGATIVE) Influenza Type B Ag NEGATIVE (NEGATIVE) RSV (PCR) NEGATIVE (NEGATIVE) SARS-CoV-2 (PCR) NEGATIVE (NEGATIVE) 06/10/23 06/10/23 Range/Units 06:52 06:40 WBC 5.8 (4.0-10.5) x10^3/uL RBC 4.13 (4.1-5.6) x10^6/uL Hgb 11.9 L (12.5-18.0) g/dL Hct 37.1 L (42-50) % MCV 89.8 (78-100) fL MCH 28.8 (26-32) pg MCHC 32.1 (32-36) g/dL RDW 14.7 H (11.5-14.0) % Plt Count 196 (150-450) x10^3/uL MPV 9.4 (7.5-11.0) fL Gran % 69.8 H (36.0-66.0) % Immature Gran % (Auto) 0.9 H (0.00-0.4) % Nucleat RBC Rel Count 0.0 (0.00-0.1) % Eos # (Auto) 0.08 (0-0.5) x10^3/uL Immature Gran # (Auto) 0.05 H (0.00-0.03) x10^3u/L Absolute Lymphs (auto) 1.00 (1.0-4.6) x10^3/uL Absolute Monos (auto) 0.56 (0.0-1.3) x10^3/uL Absolute Nucleated RBC 0.00 (0.00-0.01) x10^3u/L Lymphocytes % 17.2 L (24.0-44.0) % Monocytes % 9.7 (0.0-12.0) % Eosinophils % 1.4 (0.00-5.0) % Basophils % 1.0 (0.0-0.4) % Absolute Granulocytes 4.05 (1.4-6.9) x10^3/uL Basophils # 0.06 (0-0.4) x10^3/uL Sodium (135-145) mmol/L Potassium (3.5-5.1) mmol/L Chloride (98-107) mmol/L Carbon Dioxide (22-30) mmol/L Anion Gap (5-15) MEQ/L BUN (9-20) mg/dL Creatinine (0.66-1.25) mg/dL Estimated GFR ML/MIN Glucose (74-106) mg/dL Lactic Acid (0.4-2.0) Calcium (8.4-10.2) mg/dL Total Bilirubin (0.2-1.3) mg/dL AST (17-59) U/L ALT (0-50) U/L Alkaline Phosphatase (38-126) U/L Serum Total Protein (6.3-8.2) g/dL Albumin (3.5-5.0) g/dL Urine Color [place] A (Yellow) Urine Appearance Turbid A (Clear) Urine pH 5.5 (4.6-8.0) Ur Specific [place] 1.015 (1.005-1.030) Urine Protein 100 A (Negative) Urine Glucose (UA) 500 A (Negative) mg/dL Urine Ketones Negative (Negative) Urine Blood Large A (Negative) Urine Nitrite Negative (Negative) Urine Bilirubin Negative (Negative) Urine Urobilinogen 0.2 (0.2) mg/dL Ur Leukocyte Esterase Large A (Negative) U Hyaline Cast (Auto) 3-5 A (0-2) /LPF Urine Microscopic RBC >100 A (0-5) /HPF Urine Microscopic WBC >100 A (0-5) /HPF Ur Epithelial Cells Moderate A (None Seen) /HPF Urine Bacteria Few A (None Seen) /HPF Urine Yeast (Budding) Moderate A (None Seen) /HPF Urine Culture Reflexed ORDERED SEPARATELY (NO) Influenza Type A Ag (NEGATIVE) Influenza Type B Ag (NEGATIVE) RSV (PCR) (NEGATIVE) SARS-CoV-2 (PCR) (NEGATIVE) - Progress Progress: unchanged Counseled pt/family regarding: lab results, diagnosis <JAZMINE VALENTE - Last Filed: 06/10/23 06:49> <JUSTYN LONG - Last Filed: 06/10/23 08:44> - Progress Progress Note: 83-year-old male presents to our ED via EMS for evaluation of tremor. Patient has an indwelling Kerr catheter. Urine appears purulent. It is currently the change of shift. Patient evaluated labs ordered results pending. Patient endorsed to to review studies at studies accordingly and make final disposition. Portions of this note were created with voice recognition technology. There may be grammatical, spelling, punctuation or sound alike errors Complexity problem addressed is moderate No critical care time Complex of data reviewed and analyzed is extensive. Test ordered test results will be reviewed. Results analyzed and correlated clinically. Results will be discussed with hospitalist for possible admission. served as a primary historian Risk complication and or risk of morbidity/mortality patient management is moderate Final disposition pending. Patient appears stable at this point. Plan of care established for shared decision making. No social determinants of health pres ent impede follow-up. Portions of this note were created with voice recognition technology. There may be grammatical, spelling, punctuation or sound alike errors 06/10/23 06:54 (JAZMINE VALENTE) 06/10/23 08:22 I interpreted the patient's laboratory data results. Patient has a urinary tract infection. Patient does not have any laboratory data results suggesting sepsis. This patient's vital signs also do not suggest sepsis. Patient has been on Levaquin which, according to the prior culture and sensitivity results, the bacteria is sensitive to. We will change his antibiotics to Rocephin intravenously here in the emergency department and then outpatient cefdinir. There are also yeast present in moderate levels in his urine and we will provide him with Diflucan dose. I will recommend keeping the Kerr catheter in place and have the patient follow-up with his urologist and costume draper as well as his primary care provider. (JUSTYN LONG) Medical Desision Making - Independent Historian Additional History obtained from: Spouse - Diagnostic Testing Diagnostic test were ordered, analyzed, and reviewed by me: Yes - Risk of complications The pt has a mod risk of morbidity or mortality based on: Need for prescription drug management <JUSTYN LONG - Last Filed: 06/10/23 08:44> - Departure Critical Care Time: No <JAZMINE VALENTE - Last Filed: 06/10/23 06:49> - Departure Departure Disposition: Home Critical Care Time: No <JUSTYN LONG - Last Filed: 06/10/23 08:44> - Departure Clinical Impression: Rigor, Pyuria, UTI (urinary tract infection) Condition: Stable Referrals: STEFANIA TOLEDO MD [Primary Care Provider] - Follow up/PCP as directed Additional Instructions: Drink plenty fluids. Call your urologist, costume draper and primary care provider today to make arranges for follow-up appointment in the next 2 to 3 days. Stop your Levaquin and take your new antibiotics and other medications as prescribed. Prescriptions: Cefdinir 300 mg PO BID #14 cap Fluconazole 100 mg [Diflucan 100 MG] 100 mg PO DAILY #1 tablet
[2023-06-10 07:39] LABS: Absolute Neutrophil Ct (ANC) 4.05 x10^3/uL (1.4-6.9); Basophil (Absolute #) 0.06 x10^3/uL (0-0.4); Eosinophil % 1.4 % (0.00-5.0); Eosinophil (Absolute #) 0.08 x10^3/uL (0-0.5); Hematocrit 37.1 % (42-50); Hemoglobin 11.9 g/dL (12.5-18.0); IMMATURE GRAN # 0.05 x10^3u/L (0.00-0.03); IMMATURE GRAN % 0.9 % (0.00-0.4); Lymphocytes % 17.2 % (24.0-44.0); Mean Cell Volume 89.8 fL (78-100); Mean Corpuscular Hemoglobin 28.8 pg (26-32); Mean Corpuscular Hgb Concent. 32.1 g/dL (32-36); Mean Platelet Volume 9.4 fL (7.5-11.0); Monocyte (Absolute #) 0.56 x10^3/uL (0.0-1.3); Monocytes % 9.7 % (0.0-12.0); Neutrophil % 69.8 % (36.0-66.0); Platelet Count 196 x10^3/uL (150-450); Red Blood Count 4.13 x10^6/uL (4.1-5.6); Red Cell Distribution Width 14.7 % (11.5-14.0); White Blood Count 5.8 x10^3/uL (4.0-10.5)
[2023-06-10 07:53] LABS: Appearance Turbid (Clear); Bacteria Few /HPF (None Seen); Bilirubin Negative (Negative); Blood Large (Negative); Epithelial Cells Moderate /HPF (None Seen); Glucose, Urine 500 mg/dL (Negative); Ketones Negative (Negative); Leukocyte Esterase Large (Negative); Nitrite Negative (Negative); Ph 5.5 (4.6-8.0); Protein,Urine Dip 100 (Negative); RBC >100 /HPF (0-5); Specific Gravity 1.015 (1.005-1.030); Urobilinogen 0.2 mg/dL (0.2); WBC >100 /HPF (0-5)
[2023-06-10 07:53] LABS: ALBUMIN 3.6 g/dL (3.5-5.0); ANION GAP 15.3 MEQ/L (5-15); BILIRUBIN,TOTAL 0.2 mg/dL (0.2-1.3); Calcium 8.9 mg/dL (8.4-10.2); Creatinine 1 1.51 mg/dL (0.66-1.25); EST GLOMERULAR FILTRATION RATE 46.1 ML/MIN; Potassium 4.1 mmol/L (3.5-5.1); Total Protein 6.7 g/dL (6.3-8.2)
[2023-06-10 08:06] LABS: ADD URINE CULTURE? ORDERED SEPARATELY (NO); Budding Yeast Moderate /HPF (None Seen)
[2023-06-10 08:19] LABS: INFLUENZA A NEGATIVE (NEGATIVE); INFLUENZA B NEGATIVE (NEGATIVE); RESPIRATORY SYNCTIAL VIRUS NEGATIVE (NEGATIVE); SARS-CoV-2 Xpert Express NEGATIVE (NEGATIVE)
[2023-06-10] MEDS ORDERED: ROCEPHIN 1 GM / 100 ML NaCl 1 GM/100 ML IVPB IV ONE (08:23)
[2023-06-10] MEDS: ROCEPHIN 1 GM / 100 ML NaCl 1 GM/100 ML IVPB IV ONE (08:35)
[2023-06-10] MEDS: DIFLUCAN PO ONE (08:35)
[2023-06-10 09:50] VITALS: BP 117/74; PULSE 84; RESP 20; O2SAT 96
== END 2023-06-10 09:47 | disposition home or self-care (01) ==
LOC: ED 06:14
DX: N39.0 Urinary tract infection, site not specified (principal); R68.89 Other general symptoms and signs; Z79.01 Long term (current) use of anticoagulants; Z79.84 Long term (current) use of oral hypoglycemic drugs; Z79.891 Long term (current) use of opiate analgesic; Z79.899 Other long term (current) drug therapy; Z20.828 Contact with and (suspected) exposure to other viral communicable diseases
CPT/HCPCS: 0241U; 36000; 36415; 51702; 80053; 81001; 83605; 85025; 87040; 87086; 93041; 94760; 96365; 99284; J0696; A9270-GY

== ENCOUNTER 2023-12-03 15:26 | Day surgery (SDC) | payer MEDICARE ==
[2023-12-03] MEDS ORDERED: Depo-Medrol 40 MG/ML IM ONE (15:27)
[2023-12-03] MEDS ORDERED: LIDOCAINE HCL 1% 50 MG/5 ML VL PF IJ ONE (15:27)
[2023-12-03] MEDS ORDERED: BUPIVACAINE 0.5% VIAL IJ ONE (15:27)
--- NOTE | 2023-12-03 20:38 | XRAY ---
Indication: Right shoulder and subacromial bursa injection. Intraoperative fluoroscopy provided for 22 seconds. 2 digital spot image submitted for interpretation demonstrates needle tip projecting over right glenohumeral joint superiorly. Second needle tip subacromial. Small amount of contrast injected for needle tip placement. Correlate with intraoperative findings/report.
--- NOTE | 2023-12-07 12:49 | XRAY ---
22 seconds of fluoroscopy was used in surgery for a right intra-articular shoulder and subacromial bursa injection.
== END 2023-12-03 18:05 | disposition home or self-care (01) ==
LOC: SDC-PAIN 15:26
PROVIDERS: ATTEND Psychiatry & Neurology Pain Medicine
DX: M19.011 Primary osteoarthritis, right shoulder (principal); M75.51 Bursitis of right shoulder; E11.9 Type 2 diabetes mellitus without complications
CPT/HCPCS: 20610; 64490; 64491; 73030; 77002; 82947; J2001; Q9966

== ENCOUNTER 2024-02-05 08:09 | Emergency (ER) | payer MEDICARE ==
[2024-02-05 08:36] VITALS: TEMP 98
[2024-02-05 09:36] LABS: BASOPHIL % 0.4 % (0.2-1.2); Basophil (Absolute #) 0.03 x10^3/uL (0.01-0.08); Eosinophil % 0.4 % (0.8-7.0); Eosinophil (Absolute #) 0.03 x10^3/uL (0.04-0.54); Hematocrit 36.2 % (40.1-51.0); Hemoglobin 11.5 g/dL (13.7-17.5); IMMATURE GRAN # 0.04 x10^3u/L (0.001-0.031); IMMATURE GRAN % 0.6 % (0.001-0.429); Mean Cell Volume 88.3 fL (79.0-92.2); Mean Corpuscular Hgb Concent. 31.8 g/dL (32.3-36.5); Mean Platelet Volume 10.7 fL (9.4-12.4); Monocyte (Absolute #) 0.98 x10^3/uL (0.30-0.82); Monocytes % 13.6 % (5.3-12.2); Platelet Count 125 x10^3/uL (163-337); Red Cell Distribution Width 14.6 % (11.6-14.4); White Blood Count 7.2 x10^3/uL (4.23-9.07)
--- NOTE | 2024-02-05 09:41 | ERPHSYRPT ---
- History of Present Illness Time Seen by Provider: 02/05/24 08:46 Source: patient, family Exam Limitations: no limitations Patient Subjective Stated Complaint: Pt reports he has been having urinary retention along with pain at the penis. This morning he started having hem aturia. Pt reports he sees Dr Garza, urologist, at [place] due to having neurogenic bladder. Hx of having to self cath. Pt reports last urine output was approx 8 hours ago, since then he has been dribbling. Triage Nursing Assessment: Pt alert and oriented x3. Respirations e asy/nonlabored. Skin w/p/d. Wheeled to ED cot, ambulates with assist of cane. Unable to void at this time. Intermittent pain described as sharp and rated 8/10. Took hydrocodone tablet this morning with no relief. Physician History: 84 years old male with multiple medical problems including atrial fibrillation with pacemaker on Eliquis, hypertension, congestive heart failure, COPD, neurogenic bladder needing frequent self cath, recurrent UTIs presented in the ER with urinary retention and some blood in the urine. Patient reported having difficulty urination with burning the last few days and since last night he could not have any urine output but some dribbling with drops of blood. Denies any abdominal pain otherwise but some discomfort because of pressure in the suprapubic area. No nausea or vomiting. No chest pain palpitations or shortness of breath reported. Allergies/Adverse Reactions: fluoxetine HCl [From [id number]] Allergy (Verified 02/05/24 08:24) Home Medications: Venlafaxine HCl ER 75 mg [Effexor XR 75 MG] 225 mg PO DAILY 05/25/13 [History] Ferrous Sulfate [Iron] 325 mg PO DAILY 06/01/18 [History] Apixaban [Eliquis] 2.5 mg PO BID 09/26/22 [History] Cyanocobalamin/Folic Acid [Vitamin G54-Edgbg Acid Tablet] 500 mcg PO DAILY 09/26/22 [History] Finasteride 5 mg [Proscar 5 MG] 5 mg PO DAILY 09/26/22 [History] Furosemide 20 mg [Lasix 20 mg] 20 mg PO DAILY 09/26/22 [History] Metoprolol Tartrate 25 mg [Lopressor 25MG Tab] 12.5 mg PO DAILY 09/26/22 [History] Potassium Chloride [Klor-Con M10] 10 meq PO DAILY 09/26/22 [History] Acetaminophen 500 mg [Tylenol Extra Strength 500 mg] 500 mg PO Q6HPRN PRN 04/10/23 [History] Albuterol Sulfate [Proair Digihaler] 90 mcg IH QIDPRN PRN 04/10/23 [History] Bisacodyl 10 mg [Dulcolax 10 MG SUPP] 10 mg [facility] 04/10/23 [History] Bisacodyl 5 mg [Dulcolax 5 mg] 5 mg PO DAILY PRN PRN 04/10/23 [History] Cholecalciferol (Vitamin D3) [Vitamin D3] 50 mcg PO DAILY 04/10/23 [History] Hydrocodone/Acetaminophen [Hydrocodone-Acetamin 7.5-325] 1 tablet PO QID PRN 04/10/23 [History] Megestrol Acetate 625 mg PO 04/10/23 [History] Methenamine Hippurate 1 gm PO BID 04/10/23 [History] Polyethylene Glycol 3350 17 gm [Miralax Powder 17GM PACKET] 1 each PO DAILY PRN 04/10/23 [History] Sennosides [Vegetable Laxative] 2 tab PO DAILY PRN PRN 04/10/23 [History] Sodium Phosphate,[place]-Dibasic [Fleet Enema] 133 ml [facility] PRN 04/10/23 [History] Zinc Oxide Ointment 30 gm 1 each .ROUTE 04/10/23 [History] Hx Tetanus, Diphtheria Vaccination/Date Given: Yes Hx Influenza Vaccination/Date Given: No Hx Pneumococcal Vaccination/Date Given: No Travel Risk - International Travel Have you traveled outside of the country in past 3 weeks: No - Emerging Infectious Disease Are you exhibiting symptoms associated with any current EIDs: No - Past Medical History Pertinent Past Medical History: Yes Neurological History: No Pertinent History ENT History: Cataracts Cardiac History: Arrhythmia, High Cholesterol, Hypertension, Peripheral Vascular Disease, Other Respiratory History: No Pertinent History Endocrine Medical History: No Pertinent History Musculoskeletal History: Degenerative Disk Disease, Osteoarthritis GI Medical History: No Pertinent History History: Other Psycho-Social History: No Pertinent History Male Reproductive Disorders: Other Other Medical History: SICK SINUS SYNDROME, ATRIAL FIBRILLATION, GASTRIC BYPASS, BPH,. HX OF RIGHT TOTAL HIP, DEPRESSION, NEUROGENIC BLADDER - Past Surgical History Past Surgical History: Yes Neuro Surgical History: No Pertinent History Cardiac: Internal Defibrillator, Pacemaker Respiratory: No Pertinent History Gastrointestinal: Other Genitourinary: No Pertinent History Musculoskeletal: Joint Replacement Male Surgical History: No Pertinent History Other Surgical History: kelly hip replacement, bariatic surgery - Social History Smoking Status: Never smoker How long have you smoked: never Exposure to second hand smoke: No Drug Use: none Patient Lives Alone: No - Social Determinants of Health Will the patient participate in the screening: Declined to provide - Review of Systems Constitutional: No Symptoms Ears, Nose, & Throat: No Symptoms Respiratory: No Symptoms Cardiac: No Symptoms Abdominal/Gastrointestinal: No Symptoms Genitourinary Symptoms: Dysuria, Hematuria, Urinary Retention Musculoskeletal: Arthralgias Skin: No Symptoms Neurological: No Symptoms Endocrine: No Symptoms - Nursing Vital Signs Nursing Vital Signs: Initial Vital Signs Temperature 98 F 02/05/24 08:22 Pulse Rate 99 H 02/05/24 08:22 Respiratory Rate 17 02/05/24 08:22 Blood Pressure 145/91 02/05/24 08:22 O2 Sat by Pulse Oximetry 98 02/05/24 08:22 Pain Scale Pain Intensity 8 - Physical Exam General Appearance: no apparent distress Eye Exam: eyes nml inspection Ears, Nose, Throat Exam: normal ENT inspection Neck Exam: normal inspection, full range of motion Respiratory Exam: normal breath sounds, lungs clear Cardiovascular Exam: regular rate/rhythm, normal heart sounds Gastrointestinal/Abdomen Exam: soft, normal bowel sounds, tenderness (Mild suprapubic area tenderness) Back Exam: normal inspection Extremity Exam: normal inspection, normal range of motion Neurologic Exam: alert, oriented x 3, cooperative Skin Exam: normal color SpO2 Interpretation: normal SpO2: 98 O2 Delivery: Room Air Ordered Tests: Active Orders 24 hr Category Date Time Status Bladder Irrigation STAT Care 02/05/24 11:50 Active Au [Catheter-[place] Au] STAT Care 02/05/24 09:01 Active CBC W DIFF Stat Lab 02/05/24 09:25 Completed CMP Stat Lab 02/05/24 09:25 Completed CULTURE,URINE Stat Lab 02/05/24 09:25 Received Medication Summary Discontinued Medications Generic Name Dose Route Start Last Admin Trade Name Freq PRN Reason Stop Dose Admin Ceftriaxone Sodium 2 gm in 100 mls @ 200 mls/hr 02/05/24 10:32 02/05/24 11:42 Rocephin 2 Gm/100 Ml Nacl IV 02/05/24 11:01 Infused STAT ONE Infusion Ceftriaxone Sodium Confirm 02/05/24 10:37 Rocephin 2 Gm/100 Ml Nacl Administered 02/05/24 10:38 Dose 2 gm in 100 mls @ ud IV .STK-MED ONE Lab/Rad Data: Laboratory Result Diagrams 02/05/24 09:25 02/05/24 09:25 Laboratory Results 02/05/24 02/05/24 02/05/24 Range/Units 09:25 09:25 09:25 WBC 7.2 (4.23-9.07) x10^3/uL RBC 4.10 L (4.63-6.08) x10^6/uL Hgb 11.5 L (13.7-17.5) g/dL Hct 36.2 L (40.1-51.0) % MCV 88.3 (79.0-92.2) fL MCH 28.0 (25.7-32.2) pg MCHC 31.8 L (32.3-36.5) g/dL RDW 14.6 H (11.6-14.4) % Plt Count 125 L (163-337) x10^3/uL MPV 10.7 (9.4-12.4) fL Gran % 78.0 H (34.0-67.9) % Immature Gran % (Auto) 0.6 H (0.001-0.429) % Nucleat RBC Rel Count 0.0 (0.00-0.2) % Eos # (Auto) 0.03 L (0.04-0.54) x10^3/uL Immature Gran # (Auto) 0.04 H (0.001-0.031) x10^3u/L Absolute Lymphs (auto) 0.50 L (1.32-3.57) x10^3/uL Absolute Monos (auto) 0.98 H (0.30-0.82) x10^3/uL Absolute Nucleated RBC 0.00 (0.00-0.012) x10^3u/L Lymphocytes % 7.0 L (21.8-53.1) % Monocytes % 13.6 H (5.3-12.2) % Eosinophils % 0.4 L (0.8-7.0) % Basophils % 0.4 (0.2-1.2) % Absolute Granulocytes 5.60 H (1.78-5.38) x10^3/uL Basophils # 0.03 (0.01-0.08) x10^3/uL Sodium 133 L (135-145) mmol/L Potassium 5.1 (3.5-5.1) mmol/L Chloride 103 (98-107) mmol/L Carbon Dioxide 20 L (22-30) mmol/L Anion Gap 15.0 (5-15) MEQ/L BUN 30 H (9-20) mg/dL Creatinine 1.70 H (0.66-1.25) mg/dL Estimated GFR 39.8 ML/MIN Glucose 118 H (74-106) mg/dL Calcium 8.6 (8.4-10.2) mg/dL Total Bilirubin 0.80 (0.2-1.3) mg/dL AST 22 (17-59) U/L ALT 15 (0-50) U/L Alkaline Phosphatase 165 H (38-126) U/L Serum Total Protein 6.5 (6.3-8.2) g/dL Albumin 3.6 (3.5-5.0) g/dL Urine Color RED A (YELLOW) Urine Appearance TURBID A (CLEAR) Urine pH 8.5 A (5-6) Ur Specific [place] <=1.005 A (1.005-1.025) POC Urine Protein Conf >=300 A (Negative) Urine Ketones MODERATE-40 A (NEGATIVE) Urine Nitrite NEGATIVE (NEGATIVE) Urine Bilirubin LARGE A (NEGATIVE) Urine Urobilinogen >=8.0 A (0-1) mg/dL Urine Leukocytes LARGE A (NEGATIVE) Urine RBC LARGE A (0-5) Gilberto/ul Urine Microscopic RBC >100 A (0-5) /HPF Urine Microscopic WBC >100 A (0-5) /HPF Ur Epithelial Cells None Seen (None Seen) /HPF U Non-Squamous Epi Cells None Seen (None Seen) /HPF Urine Bacteria Rare A (None Seen) /HPF Urine Mucus Rare A (NEGATIVE) /HPF Urine Culture Reflexed YES (NO) Urine Glucose 100 A (NEGATIVE) mg/dL - Progress Progress: improved, re-examined Progress Note: 02/05/24 14:05 84 years old is evaluated in the ER for UTI symptoms with retention and found to have suhail hematuria. CBI started with clearance but still have some blood in the urine. Does have UTI and given a dose of Rocephin. Has stable hemoglobin of 11. Chemistries with stable CKD. Discussed with Dr. Mackey at 1150 out of [place] urology as patient sees Dr. Mims, reviewed history, workup, agreed with transfer to hospitalist service. I have discussed with Dr. Rae at 1235, reviewed history, workup and need for urology and patient is accepted for transfer. I have shared the results of workup with patient and family and plan of care which they understand and agree. Discussed with : Other Counseled pt/family regarding: lab results, diagnosis, need for follow-up, rad results Medical Desision Making - Discussion of managment Care discussed with:: specialist (Dr. Daniel urology and Dr. Rae hospitalist [facility]) Reviewed:: Test results Agreed on:: Treatment plan Will see patient: in hospital - Diagnostic Testing Diagnostic test were ordered, analyzed, and reviewed by me: Yes - Risk of complications The pt has a mod risk of morbidity or mortality based on: Need for prescription drug management - Departure Departure Disposition: Transfer Clinical Impression: Acute hemorrhagic cystitis Condition: Stable Critical Care Time: No Referrals: STEFANIA TOLEDO MD [Primary Care Provider] - Follow up/PCP as directed
[2024-02-05 09:45] LABS: ALBUMIN 3.6 g/dL (3.5-5.0); BILIRUBIN,TOTAL 0.8 mg/dL (0.2-1.3); Calcium 8.6 mg/dL (8.4-10.2); Creatinine 1 1.7 mg/dL (0.66-1.25); EST GLOMERULAR FILTRATION RATE 39.8 ML/MIN; Potassium 5.1 mmol/L (3.5-5.1); Total Protein 6.5 g/dL (6.3-8.2)
[2024-02-05 10:08] LABS: Appearance TURBID (CLEAR); Bilirubin LARGE (NEGATIVE); Glucose 100 mg/dL (NEGATIVE); Ketones MODERATE-40 (NEGATIVE); Ph 8.5 (5-6); Protein,Urine Dip >=300 (Negative); RBC LARGE Ery/ul (0-5); Specific Gravity <=1.005 (1.005-1.025)
[2024-02-05 10:09] LABS: Epithelial Cells None Seen /HPF (None Seen); Mucus Rare /HPF (NEGATIVE); Nitrite NEGATIVE (NEGATIVE); Non-Squamous Epithelial Cells None Seen /HPF (None Seen); RBC >100 /HPF (0-5); Urobilinogen >=8.0 mg/dL (0-1); WBC >100 /HPF (0-5)
[2024-02-05 10:10] LABS: Bacteria Rare /HPF (None Seen)
[2024-02-05] MEDS ORDERED: ROCEPHIN 2 GM/100 ML NACL 2 GM/100 ML IVPB IV ONE (10:37)
[2024-02-05] MEDS: ROCEPHIN 2 GM/100 ML NACL 2 GM/100 ML IVPB IV ONE (10:40)
[2024-02-05 14:55] LABS: Slide Review 1 YES
[2024-02-05 15:00] VITALS: O2SAT 97
[2024-02-05 15:19] VITALS: BP 102/61; PULSE 86; RESP 22
== END 2024-02-05 15:42 | disposition short-term general hospital (02) ==
LOC: ED 08:09
DX: N30.01 Acute cystitis with hematuria (principal); Z79.899 Other long term (current) drug therapy; Z79.01 Long term (current) use of anticoagulants; N18.9 Chronic kidney disease, unspecified
CPT/HCPCS: 36415; 51702; 80053; 81015; 85025; 87086; 96365; 99285; J0696

== ENCOUNTER 2024-03-07 11:16 | Emergency (ER) | payer MEDICARE ==
[2024-03-07] MEDS ORDERED: Sodium Chloride 0.9% 1000 ML 1,000 ML ONE ×2 (11:26→12:41)
[2024-03-07] MEDS: Sodium Chloride 0.9% 1000 ML 1,000 ML IV STA ×2 (11:27→12:41)
[2024-03-07 11:33] VITALS: TEMP 98.5
[2024-03-07] MEDS ORDERED: PIPERACILLIN/TAZOBACTAM IV ONE (11:44)
[2024-03-07] MEDS ORDERED: Sodium Chloride 100ML MINI-BAG PLUS 100 ML IV ONE (11:44)
[2024-03-07] MEDS: PIPERACILLIN/TAZOBACTAM 4.5 GM in Sodium Chloride 100ML MINI-BAG PLUS 100 ML IV SCH (11:51)
[2024-03-07 12:07] LABS: Absolute Neutrophil Ct (ANC) 4.59 x10^3/uL (1.78-5.38); BASOPHIL % 0.5 % (0.2-1.2); Basophil (Absolute #) 0.03 x10^3/uL (0.01-0.08); Eosinophil % 0.2 % (0.8-7.0); Eosinophil (Absolute #) 0.01 x10^3/uL (0.04-0.54); Hematocrit 29.7 % (40.1-51.0); Hemoglobin 9.3 g/dL (13.7-17.5); IMMATURE GRAN # 0.02 x10^3u/L (0.001-0.031); IMMATURE GRAN % 0.3 % (0.001-0.429); Lymphocyte (Absolute #) 0.43 x10^3/uL (1.32-3.57); Lymphocytes % 7.2 % (21.8-53.1); Mean Cell Volume 88.9 fL (79.0-92.2); Mean Corpuscular Hemoglobin 27.8 pg (25.7-32.2); Mean Corpuscular Hgb Concent. 31.3 g/dL (32.3-36.5); Mean Platelet Volume 10.4 fL (9.4-12.4); Monocyte (Absolute #) 0.86 x10^3/uL (0.30-0.82); Monocytes % 14.5 % (5.3-12.2); Neutrophil % 77.3 % (34.0-67.9); Platelet Count 124 x10^3/uL (163-337); Red Blood Count 3.34 x10^6/uL (4.63-6.08); Red Cell Distribution Width 14.9 % (11.6-14.4); White Blood Count 5.9 x10^3/uL (4.23-9.07)
[2024-03-07 12:21] LABS: ALBUMIN 2.8 g/dL (3.5-5.0); ANION GAP 10.9 MEQ/L (5-15); BILIRUBIN,TOTAL 0.6 mg/dL (0.2-1.3); Calcium 7.9 mg/dL (8.4-10.2); Creatinine 1 1.56 mg/dL (0.66-1.25); EST GLOMERULAR FILTRATION RATE 44.1 ML/MIN; Potassium 3.8 mmol/L (3.5-5.1); Total Protein 5.3 g/dL (6.3-8.2)
[2024-03-07 12:30] LABS: Appearance Turbid (Clear); Bacteria Many /HPF (None Seen); Bilirubin Negative (Negative); Blood Moderate (Negative); Epithelial Cells Many /HPF (None Seen); Glucose, Urine Negative (Negative); Hyaline Casts >50 /LPF (0-2); Ketones Negative (Negative); Leukocyte Esterase Negative (Negative); Nitrite Positive (Negative); Ph 7.5 (4.6-8.0); Protein,Urine Dip 300 (Negative); RBC 21-50 /HPF (0-5); WBC >100 /HPF (0-5)
--- NOTE | 2024-03-07 12:45 | XRAY ---
Indication: Pneumonia. Comparison: October 08, 2022 Portable chest again demonstrates left AICD partially obscuring underlying lung. Stable left costophrenic angle subsegmental atelectasis/scarring. No focal infiltrate, consolidation, or large effusion. Heart not enlarged. Bony thorax intact again with osteopenia and degenerative changes. Impression: Continued nonacute chest with chronic features.
[2024-03-07 12:46] LABS: INFLUENZA A NEGATIVE (NEGATIVE); INFLUENZA B NEGATIVE (NEGATIVE); RESPIRATORY SYNCTIAL VIRUS NEGATIVE (NEGATIVE); SARS-CoV-2 Xpert Express NEGATIVE (NEGATIVE)
[2024-03-07] MEDS ORDERED: NOREPINEPHRINE 8 MG/250 ML-D5W 8 MG/250 ML PLAST..BAG IV ONE (13:01)
[2024-03-07] MEDS: NOREPINEPHRINE 8 MG/250 ML-D5W 8 MG/250 ML PLAST..BAG IV PRN (13:02)
[2024-03-07 14:26] VITALS: PULSE 78
--- NOTE | 2024-03-07 14:47 | ERPHSYRPT ---
- History of Present Illness Time Seen by Provider: 03/07/24 11:18 Source: patient Exam Limitations: no limitations Patient Subjective Stated Complaint: C/O Increased weakness since yesterday with "bladder issues" Triage Nursing Assessment: Patient arrived by ambulance. He is alert and oriented but drowsy and falls asleep quickly. No SOB. Patient is pale. Diaphoretic. Afebrile. Hypotensive. Patient has a suprapubic cath that is not attached to a drainage bag. Patient reports it was surgically placed by Dr. Ignacio about 2 weeks ago and he was told to drain it every 4 hours. Patient reports he was last able to drain it yesterday am. This nurse accessed the suprapubic cath at this time and was able to obtain approx 20cc of urine; foul smelling, purulent, murky urine. Urine specimen sent to the lab. Then f/c was irrigated with 50cc of sterile water and attached to a catheter bag for continuous drainage. Physician History: Patient is here for most likely sepsis from UTI. Patient had a recent suprapubic catheter placed by Michael Garza MD. patient is pale, diaphoretic, afebrile, hypotensive. He is alert but appears to be drowsy. Apparently patient fell twice last night. Unable to get up on his own due to weakness. The nurse access to suprapubic catheter at bedside was able to obtain 20 cc of urine. Apparently this was foul-smelling, purulent, murky. Sent immediately to lab. They were able to irrigate the Au with 50 cc of sterile water and attached to catheter bag. Patient continues to be hypotensive, no EMS fluids and route. Patient arrives from home. Allergies/Adverse Reactions: fluoxetine HCl [From Prozac] Allergy (Verified 02/05/24 08:24) Home Medications: Venlafaxine HCl ER 75 mg [Effexor XR 75 MG] 225 mg PO DAILY 05/25/13 [History] Ferrous Sulfate [Iron] 325 mg PO DAILY 06/01/18 [History] Apixaban [Eliquis] 2.5 mg PO BID 09/26/22 [History] Cyanocobalamin/Folic Acid [Vitamin V25-Abyyi Acid Tablet] 500 mcg PO DAILY 09/26/22 [History] Finasteride 5 mg [Proscar 5 MG] 5 mg PO DAILY 09/26/22 [History] Furosemide 20 mg [Lasix 20 mg] 20 mg PO DAILY 09/26/22 [History] Metoprolol Tartrate 25 mg [Lopressor 25MG Tab] 12.5 mg PO DAILY 09/26/22 [History] Potassium Chloride [Klor-Con M10] 10 meq PO DAILY 09/26/22 [History] Acetaminophen 500 mg [Tylenol Extra Strength 500 mg] 500 mg PO Q6HPRN PRN 04/10/23 [History] Albuterol Sulfate [Proair Digihaler] 90 mcg IH QIDPRN PRN 04/10/23 [History] Bisacodyl 10 mg [Dulcolax 10 MG SUPP] 10 mg [facility] 04/10/23 [History] Bisacodyl 5 mg [Dulcolax 5 mg] 5 mg PO DAILY PRN PRN 04/10/23 [History] Cholecalciferol (Vitamin D3) [Vitamin D3] 50 mcg PO DAILY 04/10/23 [History] Hydrocodone/Acetaminophen [Hydrocodone-Acetamin 7.5-325] 1 tablet PO QID PRN 04/10/23 [History] Megestrol Acetate 625 mg PO HS 04/10/23 [History] Methenamine Hippurate 1 gm PO BID 04/10/23 [History] Polyethylene Glycol 3350 17 gm [Miralax Powder 17GM PACKET] 1 each PO DAILY PRN 04/10/23 [History] Sennosides [Vegetable Laxative] 2 tab PO DAILY PRN PRN 04/10/23 [History] Sodium Phosphate,[place]-Dibasic [Fleet Enema] 133 ml [facility] PRN 04/10/23 [History] Zinc Oxide Ointment 30 gm 1 each .ROUTE 04/10/23 [History] Hx Tetanus, Diphtheria Vaccination/Date Given: Yes Hx Influenza Vaccination/Date Given: No Hx Pneumococcal Vaccination/Date Given: No Immunizations Up to Date: Yes Travel Risk - International Travel Have you traveled outside of the country in past 3 weeks: No - Emerging Infectious Disease Are you exhibiting symptoms associated with any current EIDs: No - Past Medical History Pertinent Past Medical History: Yes Neurological History: No Pertinent History ENT History: Cataracts Cardiac History: Arrhythmia, High Cholesterol, Hypertension, Peripheral Vascular Disease, Other Respiratory History: No Pertinent History Endocrine Medical History: No Pertinent History Musculoskeletal History: Degenerative Disk Disease, Osteoarthritis GI Medical History: No Pertinent History History: Other Psycho-Social History: No Pertinent History Male Reproductive Disorders: Other Other Medical History: SICK SINUS SYNDROME, ATRIAL FIBRILLATION, GASTRIC BYPASS, BPH,. HX OF RIGHT TOTAL HIP, DEPRESSION, NEUROGENIC BLADDER - Past Surgical History Past Surgical History: Yes Neuro Surgical History: No Pertinent History Cardiac: Internal Defibrillator, Pacemaker Respiratory: No Pertinent History Gastrointestinal: Other Genitourinary: No Pertinent History Musculoskeletal: Joint Replacement Male Surgical History: No Pertinent History Other Surgical History: kelly hip replacement, bariatic surgery, suprapubic cath placement - Social History Smoking Status: Never smoker How long have you smoked: never Exposure to second hand smoke: No Drug Use: none Patient Lives Alone: No - Social Determinants of Health Will the patient participate in the screening: Declined to provide - Nursing Vital Signs Nursing Vital Signs: Initial Vital Signs Temperature 98.5 F 03/07/24 11:16 Pulse Rate 95 H 03/07/24 11:16 Respiratory Rate 18 03/07/24 11:16 Blood Pressure 70/40 03/07/24 11:16 O2 Sat by Pulse Oximetry 96 03/07/24 11:16 Pain Scale Pain Intensity 0 - Physical Exam SpO2: 71 Comments: 03/07/24 14:44 Review of Systems Constitutional: Negative for fever. HENT: Negative for congestion. Respiratory: Negative for shortness of breath. Cardiovascular: Negative for chest pain. Hypotensive, diaphoretic Gastrointestinal: Negative for abdominal pain. Genitourinary: Negative for dysuria. Musculoskeletal: Negative for back pain. Skin: Negative for rash. Neurological: Negative for headaches. Psychiatric/Behavioral: Negative for behavioral problems. All other systems reviewed and are negative. Physical Exam Vitals signs and nursing note reviewed. Constitutional: Appearance: Cachectic, 61 kg, pale, diaphoretic HENT: Head: Normocephalic and atraumatic. Eyes: Conjunctiva/sclera: Conjunctivae normal. Neck: Musculoskeletal: Normal range of motion. Trachea: No tracheal deviation. Cardiovascular: Rate and Rhythm: Normal rate. Hypotensive, pale Pulmonary: Effort: Pulmonary effort is normal. No respiratory distress. Abdominal: Palpations: Abdomen is soft. Suprapubic catheter in place. Some blood around the catheter. Penis normal, no attachments and penis. No tenderness, signs of infection, signs of abscess. Surrounding the catheter. Abdomen is soft. Not an acute abdomen. Musculoskeletal: General: No deformity. Skin: General: Skin is warm and dry. Neurological/ Psychiatric: Mental Status: Mental status, behavior, interaction with environment is appropriate for patient's age and condition 03/07/24 14:45 - Course Nursing assessment & vital signs reviewed: Yes EKG Interpreted by Me: Sinus Rhythm (AV dual paced rhythm with biventricular pacing. Rate 80, ND 82, QRS 158, QTc 443) Ordered Tests: Active Orders 24 hr Category Date Time Status Supervisor Tellers STAT Care 03/07/24 11:21 Active EKG-ER Only STAT Care 03/07/24 11:20 Active IV Insertion STAT Care 03/07/24 11:20 Active CHEST 1 VIEW (PORTABLE) Stat Exams 03/07/24 11:21 Completed BLOOD CULTURE Stat Lab 03/07/24 11:55 Received CBC W DIFF Stat Lab 03/07/24 11:55 Completed CMP Stat Lab 03/07/24 11:55 Completed CULTURE,URINE Stat Lab 03/07/24 11:20 Received Lactic Acid Stat Lab 03/07/24 12:00 Completed PROCALCITONIN Stat Lab 03/07/24 11:55 Completed TROPONIN Q4H Lab 03/07/24 11:55 Completed TROPONIN Q4H Lab 03/07/24 15:30 Ordered TROPONIN Q4H Lab 03/07/24 19:30 Ordered UA W/RFX UR CULTURE Stat Lab 03/07/24 11:20 Completed Medication Summary Generic Name Dose Route Start Last Admin Trade Name Freq PRN Reason Stop Dose Admin Piperacillin Sod/Tazobactam 100 mls @ 200 mls/hr 03/07/24 14:00 03/07/24 11:51 Sod 4.5 gm/ Sodium Chloride IV 04/06/24 13:59 200 mls/hr Q8HT AKHIL Administration Norepinephrine/Dextrose 8 mg in 250 mls @ 15 mls/hr 03/07/24 12:56 03/07/24 13:02 Norepinephrine 8 Mg/250 [id number]-[id number] IV 04/06/24 12:55 8 mcg/min .[id number] PRN 15 mls/hr HYPOTENSION Administration Protocol 8 MCG/MIN Discontinued Medications Generic Name Dose Route Start Last Admin Trade Name Pasquale PRN Reason Stop Dose Admin Sodium Chloride 1,000 mls @ 999 mls/hr 03/07/24 11:20 03/07/24 12:42 Sodium Chloride 0.9% 1000 Ml IV 03/07/24 12:20 Infused .Q1H1M STA Infusion Sodium Chloride Confirm 03/07/24 11:26 Sodium Chloride 0.9% 1000 Ml Administered 03/07/24 11:27 Dose 1,000 mls @ ud .ROUTE .STK-MED ONE Sodium Chloride Confirm 03/07/24 11:44 Sodium Chloride 100ml Mini-Bag Plus Administered 03/07/24 11:45 Dose 100 mls @ ud IV .STK-MED ONE Sodium Chloride 1,000 mls @ 999 mls/hr 03/07/24 12:36 03/07/24 13:57 Sodium Chloride 0.9% 1000 Ml IV 03/07/24 13:36 Infused .Q1H1M STA Infusion Sodium Chloride Confirm 03/07/24 12:41 Sodium Chloride 0.9% 1000 Ml Administered 03/07/24 12:42 Dose 1,000 mls @ ud .ROUTE .STK-MED ONE Piperacillin Sod/Tazobactam Sod Confirm 03/07/24 11:44 Piperacillin/Tazobactam Sodium 4.5 Gm Vial Administered 03/07/24 11:45 Dose 4.5 gm IV .STK-MED ONE Lab/Rad Data: Laboratory Result Diagrams 03/07/24 11:55 03/07/24 11:55 Laboratory Results 03/07/24 03/07/24 03/07/24 Range/Units 12:00 11:55 11:55 WBC (4.23-9.07) x10^3/uL RBC (4.63-6.08) x10^6/uL Hgb (13.7-17.5) g/dL Hct (40.1-51.0) % MCV (79.0-92.2) fL MCH (25.7-32.2) pg MCHC (32.3-36.5) g/dL RDW (11.6-14.4) % Plt Count (163-337) x10^3/uL MPV (9.4-12.4) fL Gran % (34.0-67.9) % Immature Gran % (Auto) (0.001-0.429) % Nucleat RBC Rel Count (0.00-0.2) % Eos # (Auto) (0.04-0.54) x10^3/uL Immature Gran # (Auto) (0.001-0.031) x10^3u/L Absolute Lymphs (auto) (1.32-3.57) x10^3/uL Absolute Monos (auto) (0.30-0.82) x10^3/uL Absolute Nucleated RBC (0.00-0.012) x10^3u/L Lymphocytes % (21.8-53.1) % Monocytes % (5.3-12.2) % Eosinophils % (0.8-7.0) % Basophils % (0.2-1.2) % Absolute Granulocytes (1.78-5.38) x10^3/uL Basophils # (0.01-0.08) x10^3/uL Sodium (135-145) mmol/L Potassium (3.5-5.1) mmol/L Chloride (98-107) mmol/L Carbon Dioxide (22-30) mmol/L Anion Gap (5-15) MEQ/L BUN (9-20) mg/dL Creatinine (0.66-1.25) mg/dL Estimated GFR ML/MIN Glucose (74-106) mg/dL Lactic Acid 1.2 (0.4-2.0) Calcium (8.4-10.2) mg/dL Total Bilirubin (0.2-1.3) mg/dL AST (17-59) U/L ALT (0-50) U/L Alkaline Phosphatase (38-126) U/L Troponin I (0.000-0.033) ng/mL Serum Total Protein (6.3-8.2) g/dL Albumin (3.5-5.0) g/dL Procalcitonin 1.590 H (0.030-0.080) ng/mL Urine Color (Yellow) Urine Appearance (Clear) Urine pH (4.6-8.0) Ur Specific Mitchell (1.005-1.030) Urine Protein (Negative) Urine Glucose (UA) (Negative) mg/dL Urine Ketones (Negative) Urine Blood (Negative) Urine Nitrite (Negative) Urine Bilirubin (Negative) Urine Urobilinogen (0.2) mg/dL Ur Leukocyte Esterase (Negative) U Hyaline Cast (Auto) (0-2) /LPF Urine Microscopic RBC (0-5) /HPF Urine Microscopic WBC (0-5) /HPF Ur Epithelial Cells (None Seen) /HPF Urine Bacteria (None Seen) /HPF Urine Culture Reflexed (NO) Influenza Type A Ag NEGATIVE (NEGATIVE) Influenza Type B Ag NEGATIVE (NEGATIVE) RSV (PCR) NEGATIVE (NEGATIVE) SARS-CoV-2 (PCR) NEGATIVE (NEGATIVE) Group A Strep Antibody (NEGATIVE) 03/07/24 03/07/24 03/07/24 Range/Units 11:55 11:55 11:55 WBC (4.23-9.07) x10^3/uL RBC (4.63-6.08) x10^6/uL Hgb (13.7-17.5) g/dL Hct (40.1-51.0) % MCV (79.0-92.2) fL MCH (25.7-32.2) pg MCHC (32.3-36.5) g/dL RDW (11.6-14.4) % Plt Count (163-337) x10^3/uL MPV (9.4-12.4) fL Gran % (34.0-67.9) % Immature Gran % (Auto) (0.001-0.429) % Nucleat RBC Rel Count (0.00-0.2) % Eos # (Auto) (0.04-0.54) x10^3/uL Immature Gran # (Auto) (0.001-0.031) x10^3u/L Absolute Lymphs (auto) (1.32-3.57) x10^3/uL Absolute Monos (auto) (0.30-0.82) x10^3/uL Absolute Nucleated RBC (0.00-0.012) x10^3u/L Lymphocytes % (21.8-53.1) % Monocytes % (5.3-12.2) % Eosinophils % (0.8-7.0) % Basophils % (0.2-1.2) % Absolute Granulocytes (1.78-5.38) x10^3/uL Basophils # (0.01-0.08) x10^3/uL Sodium 128 L (135-145) mmol/L Potassium 3.8 (3.5-5.1) mmol/L Chloride 101 (98-107) mmol/L Carbon Dioxide 19 L (22-30) mmol/L Anion Gap 10.9 (5-15) MEQ/L BUN 32 H (9-20) mg/dL Creatinine 1.56 H (0.66-1.25) mg/dL Estimated GFR 44.1 ML/MIN Glucose 113 H (74-106) mg/dL Lactic Acid (0.4-2.0) Calcium 7.9 L (8.4-10.2) mg/dL Total Bilirubin 0.60 (0.2-1.3) mg/dL AST 31 (17-59) U/L ALT 13 (0-50) U/L Alkaline Phosphatase 131 H (38-126) U/L Troponin I 0.022 (0.000-0.033) ng/mL Serum Total Protein 5.3 L (6.3-8.2) g/dL Albumin 2.8 L (3.5-5.0) g/dL Procalcitonin (0.030-0.080) ng/mL Urine Color (Yellow) Urine Appearance (Clear) Urine pH (4.6-8.0) Ur Specific Mitchell (1.005-1.030) Urine Protein (Negative) Urine Glucose (UA) (Negative) mg/dL Urine Ketones (Negative) Urine Blood (Negative) Urine Nitrite (Negative) Urine Bilirubin (Negative) Urine Urobilinogen (0.2) mg/dL Ur Leukocyte Esterase (Negative) U Hyaline Cast (Auto) (0-2) /LPF Urine Microscopic RBC (0-5) /HPF Urine Microscopic WBC (0-5) /HPF Ur Epithelial Cells (None Seen) /HPF Urine Bacteria (None Seen) /HPF Urine Culture Reflexed (NO) Influenza Type A Ag (NEGATIVE) Influenza Type B Ag (NEGATIVE) RSV (PCR) (NEGATIVE) SARS-CoV-2 (PCR) (NEGATIVE) Group A Strep Antibody NOT DETECTED (NEGATIVE) 03/07/24 03/07/24 Range/Units 11:55 11:20 WBC 5.9 (4.23-9.07) x10^3/uL RBC 3.34 L (4.63-6.08) x10^6/uL Hgb 9.3 L (13.7-17.5) g/dL Hct 29.7 L (40.1-51.0) % MCV 88.9 (79.0-92.2) fL MCH 27.8 (25.7-32.2) pg MCHC 31.3 L (32.3-36.5) g/dL RDW 14.9 H (11.6-14.4) % Plt Count 124 L (163-337) x10^3/uL MPV 10.4 (9.4-12.4) fL Gran % 77.3 H (34.0-67.9) % Immature Gran % (Auto) 0.3 (0.001-0.429) % Nucleat RBC Rel Count 0.0 (0.00-0.2) % Eos # (Auto) 0.01 L (0.04-0.54) x10^3/uL Immature Gran # (Auto) 0.02 (0.001-0.031) x10^3u/L Absolute Lymphs (auto) 0.43 L (1.32-3.57) x10^3/uL Absolute Monos (auto) 0.86 H (0.30-0.82) x10^3/uL Absolute Nucleated RBC 0.00 (0.00-0.012) x10^3u/L Lymphocytes % 7.2 L (21.8-53.1) % Monocytes % 14.5 H (5.3-12.2) % Eosinophils % 0.2 L (0.8-7.0) % Basophils % 0.5 (0.2-1.2) % Absolute Granulocytes 4.59 (1.78-5.38) x10^3/uL Basophils # 0.03 (0.01-0.08) x10^3/uL Sodium (135-145) mmol/L Potassium (3.5-5.1) mmol/L Chloride (98-107) mmol/L Carbon Dioxide (22-30) mmol/L Anion Gap (5-15) MEQ/L BUN (9-20) mg/dL Creatinine (0.66-1.25) mg/dL Estimated GFR ML/MIN Glucose (74-106) mg/dL Lactic Acid (0.4-2.0) Calcium (8.4-10.2) mg/dL Total Bilirubin (0.2-1.3) mg/dL AST (17-59) U/L ALT (0-50) U/L Alkaline Phosphatase (38-126) U/L Troponin I (0.000-0.033) ng/mL Serum Total Protein (6.3-8.2) g/dL Albumin (3.5-5.0) g/dL Procalcitonin (0.030-0.080) ng/mL Urine Color Dark Yellow (Yellow) Urine Appearance Turbid A (Clear) Urine pH 7.5 (4.6-8.0) Ur Specific Mitchell 1.020 (1.005-1.030) Urine Protein 300 A (Negative) Urine Glucose (UA) Negative (Negative) mg/dL Urine Ketones Negative (Negative) Urine Blood Moderate A (Negative) Urine Nitrite Positive A (Negative) Urine Bilirubin Negative (Negative) Urine Urobilinogen 1.0 A (0.2) mg/dL Ur Leukocyte Esterase Negative (Negative) U Hyaline Cast (Auto) >50 A (0-2) /LPF Urine Microscopic RBC 21-50 A (0-5) /HPF Urine Microscopic WBC >100 A (0-5) /HPF Ur Epithelial Cells Many A (None Seen) /HPF Urine Bacteria Many A (None Seen) /HPF Urine Culture Reflexed ORDERED SEPARATELY (NO) Influenza Type A Ag (NEGATIVE) Influenza Type B Ag (NEGATIVE) RSV (PCR) (NEGATIVE) SARS-CoV-2 (PCR) (NEGATIVE) Group A Strep Antibody (NEGATIVE) - Progress Progress: improved Progress Note: 03/07/24 14:48 Patient likely septic from UTI source. UA shows clear UTI. Some epithelial cells. Will send for urine culture. We also obtained other basic labs, procalcitonin, initiated sepsis bundle. This includes fluids, antibiotics. Patient still hypotensive after 2 L of fluid. Therefore we did start patient on norepinephrine. This did help improve his blood pressure from the low 80s to 115/72. I did consider obtaining a CT scan of the abdomen given his recent procedure 2 weeks ago. However, patient has no leukocytosis, he has no abdominal tenderness, no signs of abscess, no signs of fluctuance. He has no tenderness around the site. Therefore, I am not sure a CT scan would be very useful. We did attempt transfer back to [facility] where patient had procedure done. They are on total diversion and not accepting patients at this point in time. We do not have an ICU nurse at [facility] today to manage in ICU patient. Therefore we did discuss transfer with [facility]. They are tertiary care center that does have the ability to provide ICU level of care to this patient. I discussed the case over the phone with ER physician, Dr. Daigle. We did discuss the case in detail including the suprapubic catheter and recent placement. He did accept the patient to [facility]. Patient continues to be hemodynamically stable plan for transfer. I did discuss all this with the patient and the at bedside. They state their understanding. ED critical care statement As staff physician, I have provided critical care. Time: 47 mins Criteria for critical illness: Septic shock requiring vasopressor support of norepinephrine Treatment and management provided include: Coordination of management with ETC care team, consultants, and inpatient care team. [id number] assessment of condition and response to therapy. Review and interpretation of emergent diagnostic testing. Medical chart review and completion. Direction and immediate supervision of the following therapy: Critical care was time spent personally by me on the following activities: blood draw for specimens, development of treatment plan with patient or surrogate, discussions with consultants, discussions with primary provider, interpretation of cardiac output measurements, evaluation of patient's response to treatment, examination of patient, obtaining history from patient or surrogate, ordering and performing treatments and interventions, ordering and review of laboratory studies, ordering and review of radiographic studies, pulse oximetry, re-evaluation of patient's condition and review of old charts. This time was independent of all procedures performed. Brad Reed Counseled pt/family regarding: lab results, diagnosis, need for follow-up, rad results - Departure Departure Disposition: Transfer Clinical Impression: UTI (urinary tract infection), Septic shock, Pale Condition: Stable Critical Care Time: Yes Critical Care Time(excluding separately billable procedures): Critical 30-74 mins Referrals: STEFANIA TOLEDO MD [Primary Care Provider] - Follow up/PCP as directed
[2024-03-07 15:30] VITALS: BP 116/77; RESP 22; O2SAT 99
== END 2024-03-07 15:32 | disposition short-term general hospital (02) ==
LOC: ED 11:16
DX: N39.0 Urinary tract infection, site not specified (principal); R65.21 Severe sepsis with septic shock; R53.1 Weakness; Z79.01 Long term (current) use of anticoagulants
CPT/HCPCS: 0241U; 36415; 71045; 80053; 81001; 83605; 84145; 84484; 85025; 87040; 87086; 87651; 93005; 93041; 96360; 99291; 99285; J2543